=== PATIENT | female | born 1980 | race Caucasian/White ===

== ENCOUNTER 2021-01-31 08:54 | Outpatient (REF) | payer BC, SELFPAY ==
[2021-01-31 09:23] LABS: MANUAL DIFF FLAG NO
[2021-01-31 09:39] LABS: Basophils Absolute Auto 0.1 X10*3/uL (0.0-0.2); Basophils Percent Auto 0.6 % (0-2); Eosinophils Absolute Auto 0.4 X10*3/uL (0.0-0.4); Eosinophils Percent Auto 4.3 % (0-4); Hematocrit 40.8 % (37-47); Hemoglobin 13.8 g/dl (12.0-16.0); Imm Gran Abs Auto 0.06 X10*3/uL (0.00-0.03); Imm Gran Pct Auto 0.6 % (0.0-0.4); Lymphocytes Absolute Auto 2.8 X10*3/uL (1.2-4.9); Lymphocytes Percent Auto 28.3 % (20-40); Mean Corpuscular HGB Conc 33.8 g/dl (31.0-35.0); Mean Corpuscular Hemoglobin 27.9 pg (27.0-33.0); Mean Corpuscular Volume 82.6 fL (80-98); Monocytes Absolute Auto 0.7 X10*3/uL (0.1-1.2); Monocytes Percent Auto 6.9 % (2-11); Neutrophils Absolute Auto 5.8 X10*3/uL (2.0-8.3); Neutrophils Percent Auto 59.3 % (45-73); Platelet Count 332 X10*3/uL (160-400); Red Blood Count 4.94 X10*6/uL (4.20-5.50); Red Cell Distribution Width 12.8 % (11.0-16.0); White Blood Count 9.7 X10*3/uL (4.8-10.8)
[2021-01-31 10:23] LABS: Alanine Aminotransferase 15 U/L (0-31); Albumin Level 4.1 g/dL (3.5-5.0); Alkaline Phosphatase 60 U/L (39-117); Anion Gap 13 (12-20); Aspartate Amino Transferase 16 U/L (5-31); Bilirubin Total 0.5 mg/dL (0.0-1.0); Blood Urea Nitrogen 14 mg/dL (9-16); Calcium 9.1 mg/dL (8.4-10.2); Carbon Dioxide 26 mmol/L (22-29); Chloride 105 mmol/L (96-108); Cholesterol 210 mg/dL; Estimated Glomerular Filt Rate > 60; Glucose Random 145 mg/dL (60-115); HDL Cholesterol 48 mg/dL; LDL Cholesterol Calculated 124 mg/dl; Potassium 4.4 mmol/L (3.3-5.1); Sodium 140 mmol/L (135-145); Total Protein 7.3 g/dL (6.5-8.0); Triglycerides 190 mg/dL
[2021-01-31 10:27] LABS: Free T4 (Free Thyroxine) 1.07 ng/dL (0.71-1.85); Thyroid Stimulating Hormone 1.46 uIU/mL (0.32-4.0); Vitamin D 25-OH Total 50.7 ng/mL (>30)
[2021-01-31 10:33] LABS: B Type Natriuretic Peptide 14 pg/mL (<100)
[2021-01-31 12:11] LABS: Folate 19.9 ng/mL (> or = 4.0); Vitamin B12 327 pg/mL (200-900)
[2021-02-02 22:27] LABS: HPV mRNA E6/E7 rflx Not Detected (Not Detected)
== END 2021-01-31 08:55 | disposition home or self-care (01) ==
LOC: HO.LAB 08:54
PROVIDERS: Obstetrics & Gynecology; PCP Internal Medicine; Visit Provider Internal Medicine
DX: Z01.419 Encounter for gynecological examination (general) (routine) without abnormal findings (principal); I10 Essential (primary) hypertension; I42.8 Other cardiomyopathies; E78.00 Pure hypercholesterolemia, unspecified
CPT/HCPCS: 36415; 80053; 80061; 82306; 82607; 82746; 83880; 84439; 84443; 85025; 87624; 88142

== ENCOUNTER 2021-07-05 08:35 | Outpatient (REF) | payer BC, SELFPAY ==
[2021-07-05 09:09] LABS: Estimated Average Glucose 123 mg/dL; Hemoglobin A1c % 5.9 %
[2021-07-05 09:28] LABS: Alanine Aminotransferase 28 U/L (0-31); Alkaline Phosphatase 56 U/L (39-117); Anion Gap 11 (12-20); Aspartate Amino Transferase 20 U/L (5-31); Bilirubin Total 0.7 mg/dL (0.0-1.0); Blood Urea Nitrogen 9 mg/dL (9-16); Calcium 9.7 mg/dL (8.4-10.2); Carbon Dioxide 30 mmol/L (22-29); Chloride 103 mmol/L (96-108); Cholesterol 226 mg/dL; Estimated Glomerular Filt Rate > 60; Glucose Random 138 mg/dL (60-115); HDL Cholesterol 44 mg/dL; LDL Cholesterol Calculated 144 mg/dl; Potassium 4.3 mmol/L (3.3-5.1); Sodium 140 mmol/L (135-145); Triglycerides 193 mg/dL
== END 2021-07-05 08:36 | disposition home or self-care (01) ==
LOC: HO.LAB 08:35
PROVIDERS: PCP Internal Medicine; Visit Provider Internal Medicine
DX: R73.01 Impaired fasting glucose (principal); E78.00 Pure hypercholesterolemia, unspecified
CPT/HCPCS: 36415; 80053; 80061; 83036

== ENCOUNTER 2021-08-09 08:24 | Outpatient (REF) | payer BC, SELFPAY ==
--- NOTE | ~2021-08-09 | MM_ITS ---
EXAMINATION: MM SCREENING DIGITAL BREAST TOMOSYNTHESIS, BILATERAL CLINICAL INFORMATION: Screening. Asymptomatic. No prior mammography. Age 41. No known family history breast cancer. The lifetime risk of breast cancer based on the Tyrer-Cuzick Model is 13%. COMPARISON: None (current study represents initial baseline exam). TECHNIQUE: Digital breast tomosynthesis is performed in both the craniocaudal and mediolateral oblique views along with computer-aided detection (CAD). Synthesized 2D images are generated from the tomosynthesis. FINDINGS: There are scattered areas of fibroglandular density (ACR BI-RADS breast composition Category b). There are no significant masses, abnormal calcifications, or other abnormalities. The axilla and skin contours are unremarkable. MM/MM tomosynthesis screening BI IMPRESSION: No mammographic evidence of malignancy. ASSESSMENT: BI-RADS 1: Negative RECOMMENDATION: Routine annual mammography screening. This patient's information was entered into a reminder system with a target due date for their next mammogram.
== END 2021-08-09 08:25 | disposition home or self-care (01) ==
LOC: HO.MAMMO 08:24
PROVIDERS: PCP Internal Medicine; Visit Provider Internal Medicine
DX: Z12.31 Encounter for screening mammogram for malignant neoplasm of breast (principal)
CPT/HCPCS: 77063; 77067

== ENCOUNTER 2021-10-11 10:49 | Outpatient (REF) | payer BC, SELFPAY ==
[2021-10-11 12:18] LABS: Cholesterol 194 mg/dL; HDL Cholesterol 44 mg/dL; LDL Cholesterol Calculated 106 mg/dl; Triglycerides 221 mg/dL
[2021-10-11 13:11] LABS: Reflex LDLD? No
== END 2021-10-11 10:50 | disposition home or self-care (01) ==
LOC: HO.LAB 10:49
PROVIDERS: Absent Provider Internal Medicine; PCP Internal Medicine
DX: I50.20 Unspecified systolic (congestive) heart failure (principal)
CPT/HCPCS: 36415; 80061

== ENCOUNTER 2021-10-31 10:03 | Outpatient (REF) | payer BC, SELFPAY ==
[2021-10-31 10:37] LABS: MANUAL DIFF FLAG NO
[2021-10-31 10:53] LABS: Basophils Percent Auto 0.3 % (0-2); Eosinophils Absolute Auto 0.3 X10*3/uL (0.0-0.4); Hematocrit 41.9 % (37.0-47.0); Hemoglobin 14.1 g/dl (12.0-16.0); Imm Gran Abs Auto 0.05 X10*3/uL (0.00-0.03); Imm Gran Pct Auto 0.5 % (0.0-0.4); Lymphocytes Absolute Auto 2.5 X10*3/uL (1.2-4.9); Lymphocytes Percent Auto 23.4 % (20-40); Mean Corpuscular HGB Conc 33.7 g/dl (31.0-35.0); Mean Corpuscular Hemoglobin 28.4 pg (27.0-33.0); Mean Corpuscular Volume 84.5 fL (80.0-98.0); Mean Platelet Volume 8.9 fL (9.4-12.3); Monocytes Absolute Auto 0.6 X10*3/uL (0.1-1.2); Monocytes Percent Auto 5.8 % (2-11); Neutrophils Absolute Auto 7.2 x10*3/uL (2.0-8.3); Platelet Count 331 X10*3/uL (160-400); Red Blood Count 4.96 X10*6/uL (4.20-5.50); Red Cell Distribution Width 12.6 % (11.0-16.0); White Blood Count 10.8 X10*3/uL (4.8-10.8)
[2021-10-31 11:05] LABS: Estimated Average Glucose 128 mg/dL; Hemoglobin A1c % 6.1 %
[2021-10-31 11:54] LABS: B Type Natriuretic Peptide < 10 pg/mL (<100)
[2021-10-31 12:06] LABS: Alanine Aminotransferase 24 U/L (0-31); Albumin Level 4.2 g/dL (3.5-5.0); Alkaline Phosphatase 60 U/L (39-117); Anion Gap 16 (12-20); Aspartate Amino Transferase 16 U/L (5-31); Bilirubin Total 0.9 mg/dL (0.0-1.0); Blood Urea Nitrogen 12 mg/dL (9-16); Calcium 9.9 mg/dL (8.4-10.2); Carbon Dioxide 24 mmol/L (22-29); Chloride 102 mmol/L (96-108); Estimated Glomerular Filt Rate > 60; Glucose Random 145 mg/dL (60-115); Potassium 4.6 mmol/L (3.3-5.1); Sodium 137 mmol/L (135-145); Total Protein 7.3 g/dL (6.5-8.0)
[2021-10-31 12:12] LABS: Cholesterol 185 mg/dL; HDL Cholesterol 39 mg/dL; LDL Cholesterol Calculated 109 mg/dl; Triglycerides 185 mg/dL
[2021-10-31 13:23] LABS: Reflex LDLD? No
== END 2021-10-31 10:04 | disposition home or self-care (01) ==
LOC: HO.LAB 10:03
PROVIDERS: Absent Provider Internal Medicine; PCP Internal Medicine
DX: E78.5 Hyperlipidemia, unspecified (principal); E78.00 Pure hypercholesterolemia, unspecified
CPT/HCPCS: 36415; 80053; 80061; 83036; 83880; 85025

== ENCOUNTER 2022-01-17 08:22 | Outpatient (REF) | payer BC, SELFPAY ==
[2022-01-17 08:38] LABS: MANUAL DIFF FLAG NO
[2022-01-17 09:13] LABS: Basophils Percent Auto 0.4 % (0-2); Eosinophils Absolute Auto 0.3 X10*3/uL (0.0-0.4); Eosinophils Percent Auto 2.6 % (0-4); Hematocrit 40.1 % (37.0-47.0); Hemoglobin 13.7 g/dl (12.0-16.0); Imm Gran Abs Auto 0.08 X10*3/uL (0.00-0.03); Imm Gran Pct Auto 0.7 % (0.0-0.4); Lymphocytes Absolute Auto 2.7 X10*3/uL (1.2-4.9); Lymphocytes Percent Auto 24.7 % (20-40); Mean Corpuscular HGB Conc 34.2 g/dl (31.0-35.0); Mean Corpuscular Hemoglobin 28.6 pg (27.0-33.0); Mean Corpuscular Volume 83.7 fL (80.0-98.0); Mean Platelet Volume 8.9 fL (9.4-12.3); Monocytes Absolute Auto 0.8 X10*3/uL (0.1-1.2); Monocytes Percent Auto 7.7 % (2-11); Neutrophils Absolute Auto 6.9 x10*3/uL (2.0-8.3); Neutrophils Percent Auto 63.9 % (45-73); Platelet Count 317 X10*3/uL (160-400); Red Blood Count 4.79 X10*6/uL (4.20-5.50); Red Cell Distribution Width 12.8 % (11.0-16.0); White Blood Count 10.8 X10*3/uL (4.8-10.8)
[2022-01-17 09:14] LABS: Estimated Average Glucose 128 mg/dL; Hemoglobin A1C 149.0654 umol/L; Hemoglobin A1c % 6.1 %
[2022-01-17 09:35] LABS: Alanine Aminotransferase 23 U/L (0-31); Albumin Level 4.3 g/dL (3.5-5.0); Alkaline Phosphatase 52 U/L (39-117); Anion Gap 16 (12-20); Aspartate Amino Transferase 20 U/L (5-31); Bilirubin Total 0.9 mg/dL (0.0-1.0); Blood Urea Nitrogen 13 mg/dL (9-16); Calcium 9.5 mg/dL (8.4-10.2); Carbon Dioxide 23 mmol/L (22-29); Chloride 102 mmol/L (96-108); Cholesterol 166 mg/dL; Estimated Glomerular Filt Rate > 60; Glucose Random 151 mg/dL (60-115); HDL Cholesterol 39 mg/dL; LDL Cholesterol Calculated 86 mg/dl; Potassium 4.4 mmol/L (3.3-5.1); Sodium 137 mmol/L (135-145); Total Protein 7.4 g/dL (6.5-8.0); Triglycerides 206 mg/dL
[2022-01-17 09:59] LABS: Free T4 (Free Thyroxine) 1.07 ng/dL (0.71-1.85); Thyroid Stimulating Hormone 1.68 uIU/mL (0.32-4.0)
[2022-01-17 10:06] LABS: Folate > 20.0 ng/mL (> or = 4.0); Vitamin B12 328 pg/mL (200-900)
[2022-01-17 10:11] LABS: Creatinine Urine 116.79 mg/dL; Microalbum/Creatinine Ratio Ur 7.7 ug/mg cr
== END 2022-01-17 08:23 | disposition home or self-care (01) ==
LOC: HO.LAB 08:22
PROVIDERS: PCP Internal Medicine; Visit Provider Internal Medicine
DX: E11.65 Type 2 diabetes mellitus with hyperglycemia (principal); E78.00 Pure hypercholesterolemia, unspecified
CPT/HCPCS: 36415; 80053; 80061; 82043; 82306; 82607; 82746; 83036; 84439; 84443; 85025

== ENCOUNTER 2022-08-10 08:37 | Outpatient (REF) | payer BC, SELFPAY ==
--- NOTE | ~2022-08-10 | MM_ITS ---
EXAMINATION: MM SCREENING DIGITAL BREAST TOMOSYNTHESIS, BILATERAL CLINICAL INFORMATION: Screening. Asymptomatic. The lifetime risk of breast cancer based on the Tyrer-Cuzick Model is 13%. COMPARISON: Mammography: 08/09/2021 (baseline) TECHNIQUE: Digital breast tomosynthesis is performed in both the craniocaudal and mediolateral oblique views along with computer-aided detection (CAD). Synthesized 2D images are generated from the tomosynthesis. Additional exaggerated left CC view is provided. FINDINGS: There are scattered areas of fibroglandular density (ACR BI-RADS breast composition Category b). There are no significant masses, abnormal calcifications, or other abnormalities. Parenchymal pattern is similar to prior baseline exam. The axilla and skin contours are unremarkable. No significant changes. MM/MM tomosynthesis screening BI IMPRESSION: No mammographic evidence of malignancy. ASSESSMENT: BI-RADS 1: Negative RECOMMENDATION: Routine annual mammography screening. This patient's information was entered into a reminder system with a target due date for their next mammogram.
== END 2022-08-10 08:38 | disposition home or self-care (01) ==
LOC: HO.MAMMO 08:37
PROVIDERS: PCP Internal Medicine; Visit Provider Internal Medicine
DX: Z12.31 Encounter for screening mammogram for malignant neoplasm of breast (principal)
CPT/HCPCS: 77063; 77067

== ENCOUNTER 2022-09-18 13:34 | Outpatient (REF) | payer OTHER, SELFPAY ==
[2022-09-18 15:29] LABS: Anion Gap 15 (12-20); Blood Urea Nitrogen 12 mg/dL (9-16); Calcium 10.3 mg/dL (8.4-10.2); Carbon Dioxide 27 mmol/L (22-29); Chloride 101 mmol/L (96-108); Estimated Glomerular Filt Rate > 60; Glucose Random 109 mg/dL (60-115); Potassium 4.3 mmol/L (3.3-5.1); Sodium 139 mmol/L (135-145)
[2022-09-18 16:07] LABS: B Type Natriuretic Peptide < 10 pg/mL (<100)
== END 2022-09-18 13:35 | disposition home or self-care (01) ==
LOC: HO.LAB 13:34
PROVIDERS: PCP Internal Medicine; Referring Provider Internal Medicine; Visit Provider Internal Medicine Cardiovascular Disease
DX: I42.8 Other cardiomyopathies (principal); Z86.79 Personal history of other diseases of the circulatory system
CPT/HCPCS: 36415; 80048; 83880; 93005

== ENCOUNTER → 2022-09-27 09:46 | Outpatient (REF) | payer OTHER, SELFPAY ==
--- NOTE | 2022-09-27 09:53 | CA_ITS ---
Transthoracic Echocardiogram Patient (Last, First, Middle): Adina Lees M Gender: Female Date of : 1980 Age: 42 Procedure Date: 09/27/2022 Procedure Type: Transthoracic Echocardiogram Location: OP Height: 175.26 cm Weight: 106.6 kg BSA: 2.21 m2 Heart Rate: 95 bpm BP: 120 / 80 mmHg Route Process Administrator: KRISS Referring MD: Gene Funk MD Career Developer: Gene Funk MD Symptoms: I42.8 - Other cardiomyopathies Study Quality: Adequate w contrast ECG Rhythm: Sinus Conclusions: - 1. Normal LV systolic function with very mild asymmetric septal hypertrophy with grade 1 diastolic dysfunction 2. Normal cardiac valvular Doppler 3. No gross pericardial effusion Findings Procedure Information Contrast agent, definity, is being given per protocol without apparent complications. Left Ventricle Normal left ventricular size, thickness, and systolic function. The visually estimated ejection fraction is between 55-60%. There is no evidence of regional wall motion abnormalities. There is no dynamic left ventricular outflow tract obstruction. Spectral Doppler is indicative of an impaired relaxation filling pattern. E/E prime ratio is <8, consistent with normal filling pressures. Evidence suggests grade I (mild) diastolic dysfunction. There is mild septal asymmetric hypertrophy. Right Ventricle Normal right ventricular cavity size and systolic function. Atria Both atria are normal in size. There is lipomatous hypertrophy of the interatrial septum. There is no evidence of interatrial shunt. Aortic Valve Normal aortic valve structure and function. There is no aortic valve stenosis. There is no aortic valve regurgitation. Mitral Valve Normal mitral valve structure and function. There is trace mitral valve regurgitation. There is no mitral valve stenosis. Pulmonic Valve The pulmonic valve was not well visualized. Tricuspid Valve Likely normal tricuspid valve structure and function. Tricuspid regurgitation envelope is inadequate for calculation of right ventricular systolic pressure. Normal right atrial pressure. Great Vessels All visible segments of the aorta are normal in size. The pulmonary artery was not well visualized. Venous The inferior vena cava is normal in size and collapses greater than 50% with inspiration. Pericardium/Pleural There is no evidence of pericardial effusion. Prior Study Comparison No prior study available for comparison. Measurements 2D Linear Measurements IVSd: 1.16 0.6-0.9/0.6-1.0 cm LVIDd: 4.29 3.9-5.3/4.2-5.9 cm LVIDd Index: 1.94 2.4-3.2/2.2-3.1 cm/m2 LVIDs: 2.92 2.0-3.6 cm LVPWd: 0.70 0.7-1.1 cm LA Diam: 4.20 2.7-3.8/3.0-4.0 cm LAIDs Index: 1.90 1.5-2.3 cm/m2 LV Mass: 159.80 67-162/88-224 g LV Mass Index: 72.31 43-95/49-115 g/m2 LVOT Diam: 2.20 3.0+(-)1.3 cm 2D Systolic Function EF 4C: 52.70 >55% EF 2C: 55.30 >55% EF BiP: 54.90 >55% Mitral Valve MV Pk E: 0.51 MV PK A: 0.78 E/A: 0.70 E'Lateral: 10.10 E'Medial: 4.68 E/E' Med: 11.00 E/E' Lat: 5.10 Aortic Valve AoV Pk Ayden: 1.08 AoV Pk Grad: 5.00 KATHY: 3.33 LVOT LVOT Pk Ayden: 0.95 LVOT Mn Ayden: 0.65 LVOT VTI: 0.17 LVOT Pk Grad: 4.00 LVOT Mn Grad: 2.00 LVOT Diam: 2.20 LVOT Area: 3.80 Diastolic Function MV Pk E: 0.51 MV Pk A: 0.78 E/A: 0.70 E'Medial: 4.68 E/E' Med: 11.00 E' Laterial: 10.10 E/E' Lat: 5.10 Right Ventricle TAPSE (mm): 23.60 TVS' Ayden: 9.25 Tricuspid Valve RA Press: 3.00 Great Vessels Aorta Sinus of Valsalva: 3.30 2.0-3.5 cm Ao Asc: 3.50 2.1-3.4 cm Pulmonary Valve PV Pk Ayden: 0.81 Peak PV Grad: 3.00 Updated in Other Vendor System with Status of Final Gene Funk MD electronically signed on 09/27/2022 11:49:44 AM with status of Final
== END ==
LOC: HO.CARD 09:46
PROVIDERS: PCP Internal Medicine; Visit Provider Internal Medicine Cardiovascular Disease
DX: I42.8 Other cardiomyopathies (principal)
CPT/HCPCS: 93306; Q9957

== ENCOUNTER 2022-12-06 08:30 | Outpatient (REF) | payer OTHER, SELFPAY ==
--- NOTE | ~2022-12-06 | XR_ITS ---
EXAMINATION: XR LUMBOSACRAL SPINE CLINICAL INFORMATION: Anesthesia of skin COMPARISON: Lumbar spine radiographs dated 03/11/2018. TECHNIQUE: AP and lateral views of the lumbar spine and lateral view of the lumbosacral junction. FINDINGS: Vertebral body heights and alignment are normal. The lumbar disc spaces are well-maintained. No acute fracture or spondylolisthesis is seen. There is mild anterior spondylosis at T10-T11. There is very mild anterior spondylosis at L4-L5 and L5-S1. The posterior elements are intact. The paravertebral soft tissues are unremarkable. XR/XR lumbar spine 2-3V IMPRESSION: 1. No acute fracture or spondylolisthesis is seen. 2. The lumbar disc spaces are well-maintained. 3. There is very mild thoracolumbar spondylosis.
[2022-12-06 08:52] LABS: MANUAL DIFF FLAG NO
--- NOTE | 2022-12-06 09:05 | EMG_ITS ---
Bilateral tibial and peroneal motor studies were performed. Bilateral superficial peroneal and sural sensory studies were performed. Tibial H reflexes were obtained and paraspinal muscles were tested with a needle. 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 MD TIM Kruse/JESSIE / [id number]
[2022-12-06 09:09] LABS: Basophils Absolute Auto 0.1 X10*3/uL (0.0-0.2); Basophils Percent Auto 0.5 % (0-2); Eosinophils Absolute Auto 1.6 X10*3/uL (0.0-0.4); Eosinophils Percent Auto 13.8 % (0-4); Hematocrit 40.5 % (37.0-47.0); Hemoglobin 13.6 g/dl (12.0-16.0); Imm Gran Abs Auto 0.07 X10*3/uL (0.00-0.03); Imm Gran Pct Auto 0.6 % (0.0-0.4); Lymphocytes Absolute Auto 2.5 X10*3/uL (1.2-4.9); Lymphocytes Percent Auto 21.4 % (20-40); Mean Corpuscular HGB Conc 33.6 g/dl (31.0-35.0); Mean Corpuscular Hemoglobin 28.5 pg (27.0-33.0); Mean Corpuscular Volume 84.7 fL (80.0-98.0); Mean Platelet Volume 8.7 fL (9.4-12.3); Monocytes Absolute Auto 0.6 X10*3/uL (0.1-1.2); Monocytes Percent Auto 5.5 % (2-11); Neutrophils Absolute Auto 6.8 x10*3/uL (2.0-8.3); Neutrophils Percent Auto 58.2 % (45-73); Platelet Count 296 X10*3/uL (160-400); Red Blood Count 4.78 X10*6/uL (4.20-5.50); Red Cell Distribution Width 12.5 % (11.0-16.0); White Blood Count 11.7 X10*3/uL (4.8-10.8)
[2022-12-06 09:11] LABS: Estimated Average Glucose 131 mg/dL; Hemoglobin A1c % 6.2 %
[2022-12-06 10:30] LABS: Alanine Aminotransferase 20 U/L (0-31); Alkaline Phosphatase 46 U/L (39-117); Anion Gap 14 (12-20); Aspartate Amino Transferase 16 U/L (5-31); Bilirubin Total 1.1 mg/dL (0.0-1.0); Blood Urea Nitrogen 14 mg/dL (9-16); Calcium 9.2 mg/dL (8.4-10.2); Carbon Dioxide 25 mmol/L (22-29); Chloride 104 mmol/L (96-108); Cholesterol 174 mg/dL; Estimated Glomerular Filt Rate > 60; Glucose Random 148 mg/dL (60-115); HDL Cholesterol 40 mg/dL; LDL Cholesterol Calculated 103 mg/dl; Potassium 4.3 mmol/L (3.3-5.1); Sodium 139 mmol/L (135-145); Total Protein 6.8 g/dL (6.5-8.0); Triglycerides 159 mg/dL
[2022-12-06 10:41] LABS: Folate 16.8 ng/mL (> or = 4.0); Thyroid Stimulating Hormone 1.58 uIU/mL (0.32-4.0); Vitamin B12 426 pg/mL (200-900); Vitamin D 25-OH Total 65.2 ng/mL (>30)
[2022-12-06 12:05] LABS: Creatinine Urine 89.53 mg/dL; Microalbumin Urine < 5.0 mg/L
== END 2022-12-06 08:31 | disposition home or self-care (01) ==
LOC: HO.NEURO 08:30
PROVIDERS: PCP Internal Medicine; Visit Provider Internal Medicine
DX: R20.0 Anesthesia of skin (principal); E11.65 Type 2 diabetes mellitus with hyperglycemia; E78.00 Pure hypercholesterolemia, unspecified; E55.9 Vitamin D deficiency, unspecified
CPT/HCPCS: 36415; 72100; 80053; 80061; 82043; 82306; 82607; 82746; 83036; 84439; 84443; 85025; 95886; 95911

== ENCOUNTER 2023-05-02 10:10 | Outpatient (REF) | payer OTHER, SELFPAY ==
[2023-05-02 11:38] LABS: Estimated Average Glucose 88 mg/dL; Hemoglobin A1c % 4.7 % (<6.0)
[2023-05-02 11:41] LABS: Alanine Aminotransferase 15 U/L (0-31); Albumin Level 4.1 g/dL (3.5-5.0); Alkaline Phosphatase 41 U/L (39-117); Anion Gap 13 (12-20); Aspartate Amino Transferase 14 U/L (5-31); Bilirubin Total 0.8 mg/dL (0.0-1.0); Blood Urea Nitrogen 13 mg/dL (9-16); Calcium 9.5 mg/dL (8.4-10.2); Carbon Dioxide 26 mmol/L (22-29); Chloride 106 mmol/L (96-108); Cholesterol 132 mg/dL (<200); Estimated Glomerular Filt Rate > 60; Glucose Random 93 mg/dL (60-115); HDL Cholesterol 38 mg/dL (>40); LDL Cholesterol Calculated 75 mg/dL (<100); Potassium 4.2 mmol/L (3.3-5.1); Sodium 141 mmol/L (135-145); Total Protein 7.2 g/dL (6.5-8.0); Triglycerides 96 mg/dL (<150)
== END 2023-05-02 10:11 | disposition home or self-care (01) ==
LOC: HO.LAB 10:10
PROVIDERS: PCP Internal Medicine; Visit Provider Internal Medicine
DX: E11.65 Type 2 diabetes mellitus with hyperglycemia (principal); E78.00 Pure hypercholesterolemia, unspecified
CPT/HCPCS: 36415; 80053; 80061; 83036

== ENCOUNTER 2023-05-17 14:43 | Outpatient (AMB) | payer OTHER, SELFPAY ==
[2023-05-17 14:47] VITALS: BP 104/60; PULSE 85; O2SAT 98; BMI 30.6
--- NOTE | 2023-05-17 14:47 | MHC.PC.OV ---
Vital Signs 05/17/23 14:47 Height 5 ft 9 in Weight 207 lb BMI 30.6 BP 104/60 Blood Pressure Location Lt brachial Position Sitting Pulse 85 Pulse Source Pulse Oximeter Pulse Oximetry (%) 98 Oxygen Delivery Method Room Air Intake Visit Reasons: 3M follow up Allergies No Known Allergies Allergy (Verified 05/17/23 14:48) Medication List - Last Reconciled 05/17/23 by Eliseo Jha MD biotin 1 mg PO DAILY carvedilol 25 mg PO BID 90 days cetirizine (Zyrtec) 10 mg PO DAILY PRN fluticasone propionate 50 mcg/actuation 1 spray intranasal Q12H gabapentin 100 mg PO BEDTIME lactobacillus combination no.4 (Probiotic) 3,000 mmu cells PO DAILY losartan 100 mg PO DAILY 90 days metformin 500 mg PO DAILY multivitamin 1 tab PO DAILY pantoprazole 40 mg PO DAILY 90 days semaglutide 2 mg (0.75 mL) subcut QWEEK 4 weeks simvastatin 10 mg PO BEDTIME 30 days spironolactone 25 mg PO DAILY 90 days Tobacco use date assessed: 12/03/22 Dental Screening Dental Screen Date: 05/17/23 Did you have a dental visit in the last 12 months?: Yes Did you have a dental problem in the last 6 months where you did not have access to dental care?: No Was dental information given to patient?: Patient has dentist HPI 3M follow up HPI Details 43-year-old morbidly obese female with a history of nonischemic cardiomyopathy hypercholesterolemia hypertension GERD and diabetes mellitus last seen in 02/08/2023. Patient is up-to-date with mammogram. [facility] Medical History History of GI bleed Nonischemic cardiomyopathy PCOS (polycystic ovarian syndrome) Congestive heart failure Obesity (BMI 30-39.9) Ocular migraine Hypertension Hypercholesterolemia GERD (gastroesophageal reflux disease) Family History Mother No problems noted. Father FH: prostate cancer Maternal Grandfather Colon cancer Social History Housing: House Alcohol intake: current Alcohol intake frequency: a few times a month Patient Tobacco Use Status: Never used Tobacco e-Cigarette/Vaping Use: Never Used Second Hand Smoke Exposure: No service: No Current occupational status: employed Current occupational exposures/hazards: No Cognitive needs: No Hearing needs: No Vision needs: No Female Reproductive History Menstrual Age of Menarche: 15 Questionnaire PHQ-9 Over the last 2 weeks, how often have you been bothered by any of the following problems? 1. Little interest or pleasure in doing things: not at all 2. Feeling down, depressed, or hopeless: not at all 3. Trouble falling or staying asleep, or sleeping too much: not at all 4. Feeling tired or having little energy: not at all 5. Poor appetite or overeating: not at all 6. Feeling bad about yourself - or that you are a failure or have let yourself or your family down: not at all 7. Trouble concentrating on things, such as reading the newspaper or watching television: not at all 8. Moving or speaking so slowly that other people could have noticed. Or the opposite - being so fidgety or restless that you have been moving around a lot more than usual: not at all 9. Thoughts that you would be better off or of hurting yourself in some way: not at all Total score: 0 Depression Screening Interpretation: Negative Depression Screening Done: Yes Source: Developed by Drs. Dandy Vieyra, Lance Maloney and colleagues, with an educational selin from [employer]. Thrive Questionnaire Date Thrive assessed: 02/08/23 AUDIT C Alcohol Use Questionnaire (AUDIT-C) 1. How often do you have a drink containing alcohol?: 2-4 times a month 2. How many drinks containing alcohol do you have on a typical day when you are drinking?: 1 or 2 3. How often do you have six or more drinks on one occasion?: Never Total Score: 2 SELENA-7 AMB Questionnaire SELENA-7 Date SELENA - 7 assessed: 02/08/23 Source: Developed by Marianne Elizalde Kurt Kroenke and colleagues, with an educational selin from [employer]. Physical exam (Primary Care) Vital Signs: Last Vital Signs Pulse 85 05/17/23 14:47 BP 104/60 05/17/23 14:47 Pulse Ox 98 05/17/23 14:47 Oxygen Delivery Method Room Air 05/17/23 14:47 BMI result Body Mass Index 30.6 Tobacco/Smoking Status: Tobacco use Status Tobacco use date assessed 12/03/22 05/17/23 14:53 Patient Tobacco Use Status Never used Tobacco 05/17/23 14:53 e-Cigarette/Vaping Use Never Used 05/17/23 14:53 PHQ-9: PHQ-9 Score PHQ-9: Total score 0 05/17/23 14:58 Depression Screening Interpretation: Negative Thrive Assessment: Date of Thrive Assessment Date Thrive assessed 02/08/23 05/17/23 14:53 Const General: alert; No acute distress Eyes Conjunctivae: conjunctivae normal Resp Auscultation: clear to auscultation bilaterally Cardio Rate: regular rate Rhythm: regular rhythm GI Inspection: Yes normal to inspection Extrem General: Yes normal to inspection and No edema Office Procedures Flu Questionnaire Does the patient have a severe egg allergy?: No Does the patient have severe life threatening allergies?: No Does the patient have a fever or illness today?: No Has the patient ever had Guillain-[place] Syndrome?: No Has the patient ever had any past reaction to a flu shot?: No Immunizations flu vacc [id number] 6mos up(PF) 60 mcg(15 mcgx4)/0.5 mL IM syringe Performing Provider: Eliseo Jha MD Performing Location: [facility] Administered by: JEANNIE Motta on 05/17/23 14:58 Dose Route Admin Location Dispensed Lot Number Expiration Date NDC Professor Of Communication And Writing 0.5 mL IM Left Deltoid 0.5 mL [id number] 02/09/24 14225-928-39 [employer] VIS Given Date VIS Provided VIS Publication Date 05/17/23 Single Vaccine 21 Eligibility Eligibility Date Funding Source Not [facility] Eligible 05/17/23 Private Assessment and Plan Assessment & Plan (1) Type 2 diabetes mellitus with hyperglycemia: Code(s): E11.65 - Type 2 diabetes mellitus with hyperglycemia Plan: Decrease the amount of carbohydrate intake, pasta, bread, rice and potatoes are all sugar and that is aside from all the sweet stuff, remember that fruits are good but they are Sweet also. Hemoglobin A1c goal of less than 6.5 patient is on metformin 500 mg once a day, semaglutide (2) Hypercholesterolemia: Code(s): E78.00 - Pure hypercholesterolemia, unspecified Plan: Avoid fried foods, chicken skin, eggs, butter margarine, pastries and meat. Be it pork or beef they have a lot of cholesterol LDL goal of less than 100. Patient is on simvastatin 10 mg once a day (3) GERD (gastroesophageal reflux disease): Code(s): K21.9 - Gastro-esophageal reflux disease without esophagitis Qualifiers: Esophagitis presence: without esophagitis Qualified Code(s): K21.9 - Gastro-esophageal reflux disease without esophagitis Plan: Avoid the foods that causes that usually spicy foods, tomato products, juices, coffee, soda and foods that your sensitive to. After eating do not lie down, allow 3-4 hours before in lie down. And keep the head of bed above 30 degrees to avoid the acid from going up. (4) Hypertension: Code(s): I10 - Essential (primary) hypertension Qualifiers: Hypertension type: essential hypertension Qualified Code(s): I10 - Essential (primary) hypertension Plan: Continue with blood pressure medication. Decrease salt intake and exercise patient is on spironolactone 25 mg once a day losartan 100 mg once a day and carvedilol 25 mg twice a day (5) Obesity (BMI 30-39.9): Code(s): E66.9 - Obesity, unspecified Plan: Diet and exercise (6) Nonischemic cardiomyopathy: Comment: January 2013 EF 61%, April 2018 EF 59% June 2020 echocardiogram ejection fraction 53% normal left ventricular activity October 2022. Normal LV systolic function with very mild asymmetric septal hypertrophy with grade 1 diastolic dysfunction 2. Normal cardiac valvular Doppler 3. No gross pericardial effusion Code(s): I42.8 - Other cardiomyopathies Plan: Continue with present medication. Orders: Orders Influenza [id number] Immunization Today Z23 - Encounter for immunization Medications: Refilled semaglutide for 4 weeks 2 mg (0.75 mL) subcut QWEEK 4 weeks 3 mL 3RF E11.65 - Type 2 diabetes mellitus with hyperglycemia Coding Level of Care Code Est Pt Level 4 (72799) Diagnoses Type 2 diabetes mellitus with hyperglycemia E11.65 Hypercholesterolemia E78.00 Gastroesophageal reflux disease without esophagitis K21.9 Esophagitis presence: without esophagitis Essential hypertension I10 Hypertension type: essential hypertension Obesity (BMI 30-39.9) E66.9 Nonischemic cardiomyopathy I42.8
== END 2023-05-17 15:49 | disposition home or self-care (01) ==
PROVIDERS: PCP Internal Medicine; Visit Provider Internal Medicine
DX: E11.65 Type 2 diabetes mellitus with hyperglycemia (principal); E78.00 Pure hypercholesterolemia, unspecified; I42.8 Other cardiomyopathies; Z23 Encounter for immunization; K21.9 Gastro-esophageal reflux disease without esophagitis; I10 Essential (primary) hypertension; E66.9 Obesity, unspecified
CPT/HCPCS: 90471; 90686; 99214

== ENCOUNTER 2023-07-23 09:27 | Outpatient (AMB) | payer OTHER, SELFPAY ==
--- NOTE | 2023-07-23 09:32 | MHC.OFFVIS ---
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: No Allergies No Known Allergies Allergy (Verified 07/23/23 09:33) Medication List - Last Reconciled 07/23/23 by Suzanne Rubi MD biotin 1 mg PO DAILY carvedilol 25 mg PO BID 90 days cetirizine (Zyrtec) 10 mg PO DAILY PRN fluticasone propionate 50 mcg/actuation 1 spray intranasal Q12H gabapentin 100 mg PO BEDTIME lactobacillus combination no.4 (Probiotic) 3,000 mmu cells PO DAILY losartan 100 mg PO DAILY 90 days metformin 500 mg PO DAILY multivitamin 1 tab PO DAILY pantoprazole 40 mg PO DAILY 90 days simvastatin 10 mg PO BEDTIME 30 days spironolactone 25 mg PO DAILY 90 days tirzepatide 5 mg (0.5 mL) subcut QWEEK 4 weeks HPI HPI Comments History of Present Illness Details 43y/o female comes for evaluation of numbness and tingling in her lower extremities and upper extremities. It started about 10 years ago as episodic numbness and tingling in her hands and legs . It progressed over years and she has more frequent episodes. The episodes are more at rest , whens he is trying to sleep, whens he is sitting at work. Walking around makes these symptoms better , sitting make sit worse. she is not sure if its worse in the evenings. she has had stabbing pain and leg cramps at night that wakes her up. Now she has numbness in her left 2 toes that is persistent. she has pain in her back mainly in the tail bone area but no shooting pains. she sleeps good, has mild snoring. she also has some neck pain and left shoulder pain but no shooting pains. No urinary incontinence. she had heart failure when she was 26 they think it was a viral carditis. [facility] Medical History (Updated 07/23/23 @ 10:09 by Suzanne Rubi MD) Paresthesias Hypersomnia Snoring History of GI bleed Nonischemic cardiomyopathy PCOS (polycystic ovarian syndrome) Congestive heart failure Obesity (BMI 30-39.9) Ocular migraine Hypertension Hypercholesterolemia GERD (gastroesophageal reflux disease) Family History Mother No problems noted. Father FH: prostate cancer Maternal Grandfather Colon cancer Social History Housing: House Alcohol intake: current Alcohol intake frequency: a few times a month Patient Tobacco Use Status: Never used Tobacco e-Cigarette/Vaping Use: Never Used Second Hand Smoke Exposure: No service: No Current occupational status: employed Current occupational exposures/hazards: No Cognitive needs: No Hearing needs: No Vision needs: No Female Reproductive History Menstrual Age of Menarche: 15 Physical Exam Vital Signs: Last Vital Signs Pulse 98 07/23/23 09:33 Resp 16 07/23/23 09:33 BP 118/70 07/23/23 09:33 Pulse Ox 99 07/23/23 09:33 Oxygen Delivery Method Room Air 07/23/23 09:33 BMI result Body Mass Index 29.7 Const General: cooperative, healthy appearing, comfortable and no acute distress Nutritional Appearance: overweight Orientation/consciousness: patient oriented x3 Eyes Pupils: Equal, round and reactive pupils present Neuro Other: Mallampatti grade 4 General: patient oriented x3, gait normal, tone normal, moves all extremities and no focal motor deficits Cranial nerves: Yes Facial sensation intact/muscles of mastication intact, Yes Equal, round and reactive pupils present, Yes Bilaterally intact EOM present, Yes Nystagmus not present, Yes Normal facial strength present, Yes Midline tongue present and Yes Symmetric palate elevation present Cognition (Neuro): normal cognition Gait exam (Neuro): Normal gait present Motor exam (neuro): 5/5 motor strength present throughout and Normal motor muscle tone present throughout Deep tendon reflexes (DTR's): Right triceps reflex intensity grade: 1+, Left triceps reflex intensity grade: 1+, Rt Biceps (C5, C6): 1+, Left biceps reflex intensity grade: 1+, Right brachioradialis reflex intensity grade: 1+, Left brachioradialis reflex intensity grade: 1+, Right patellar reflex intensity grade: 1+ and Left patellar reflex intensity grade: 1+ Coordination: [id number] test normal Assessment & Plan Assessment & Plan (1) Left leg numbness: Comment: 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 due to low iron I will check her ferritin level SLeep study to r/o sleep apnea Continue gabapentin 100mg qhs for now Orders: Orders NE electromyogram (EMG) 3 Months R20.0 - Anesthesia of skin Ferritin Today R20.0 - Anesthesia of skin Vitamin D 25-OH (D2 and D3) Today R20.0 - Anesthesia of skin RT home sleep study Today G47.10 - Hypersomnia, unspecified, R06.83 - Snoring Coding Level of Care Code New Pt Level 4 (11490) Diagnoses Left leg numbness R20.0 Paresthesias R20.2 Snoring R06.83 Hypersomnia G47.10
[2023-07-23 09:33] VITALS: BP 118/70; PULSE 98; RESP 16; O2SAT 99; BMI 29.7
== END 2023-07-23 10:10 | disposition home or self-care (01) ==
PROVIDERS: PCP Internal Medicine; Visit Provider Psychiatry & Neurology Neurology
DX: R20.0 Anesthesia of skin (principal); R20.2 Paresthesia of skin; R06.83 Snoring; G47.10 Hypersomnia, unspecified
CPT/HCPCS: 99204

== ENCOUNTER → 2023-07-23 09:27 | Outpatient (BNVA) | payer OTHER, SELFPAY | PROVIDERS: PCP Internal Medicine; Visit Provider Psychiatry & Neurology Neurology ==

== ENCOUNTER 2023-08-16 15:50 | Outpatient (REF) | payer OTHER, SELFPAY ==
--- NOTE | ~2023-08-16 | MM_ITS ---
EXAMINATION: MM SCREENING DIGITAL BREAST TOMOSYNTHESIS, BILATERAL CLINICAL INFORMATION: Screening. Asymptomatic. COMPARISON: Mammography: 08/10/2022, 08/09/2021 TECHNIQUE: Digital breast tomosynthesis is performed in both the craniocaudal and mediolateral oblique views along with computer-aided detection (CAD). Synthesized 2D images are generated from the tomosynthesis. FINDINGS: There are scattered areas of fibroglandular density (ACR BI-RADS breast composition Category b). There are no suspicious masses, suspicious grouped calcifications, or areas of architectural distortion in either breast. The parenchymal pattern is stable from prior exams. No skin or axillary abnormalities. MM/MM tomosynthesis screening BI IMPRESSION: No mammographic evidence of malignancy. ASSESSMENT: BI-RADS BI-RADS 1 - Negative RECOMMENDATION: Routine annual mammography screening. 1 year F/U This examination should not preclude the clinical evaluation of a suspicious palpable abnormality. This patient's information was entered into a reminder system with a target due date for their next mammogram.
== END 2023-08-16 15:51 | disposition home or self-care (01) ==
LOC: HO.MAMMO 15:50
PROVIDERS: PCP Internal Medicine; Visit Provider Internal Medicine
DX: Z12.31 Encounter for screening mammogram for malignant neoplasm of breast (principal)
CPT/HCPCS: 77063; 77067

== ENCOUNTER → 2023-08-16 16:00 | Outpatient (BNV) | payer OTHER, SELFPAY | PROVIDERS: PCP Internal Medicine; Visit Provider Radiology Diagnostic Radiology | DX: Z12.31 Encounter for screening mammogram for malignant neoplasm of breast (principal) | CPT/HCPCS: 77063; 77067 ==

== ENCOUNTER → 2023-09-16 13:51 | Outpatient (REF) | payer OTHER, SELFPAY | LOC: HO.SL 13:51 | PROVIDERS: PCP Internal Medicine; Visit Provider Psychiatry & Neurology Neurology | DX: G47.33 Obstructive sleep apnea (adult) (pediatric) (principal); G47.10 Hypersomnia, unspecified; R06.83 Snoring | CPT/HCPCS: 95806 ==

== ENCOUNTER → 2023-09-16 14:01 | Outpatient (BNV) | payer OTHER, SELFPAY | PROVIDERS: PCP Internal Medicine; Visit Provider Internal Medicine | DX: G47.33 Obstructive sleep apnea (adult) (pediatric) (principal) | CPT/HCPCS: 95806 ==

== ENCOUNTER 2023-09-26 13:17 | Outpatient (AMB) | payer OTHER, SELFPAY ==
[2023-09-26 13:18] VITALS: BP 120/74; PULSE 107; BMI 29.0
--- NOTE | 2023-09-26 13:18 | A.OFFVIS_ITS ---
Intake Vital Signs 09/26/23 13:18 Height 5 ft 9 in Weight 196 lb 3.382 oz BMI 29.0 BP 120/74 Blood Pressure Location Lt brachial Position Sitting Pulse 107 H Intake Visit Reasons: 1 YEAR FOLLOW UP AFTER ECHO Intake Note: 1 year follow-up after echo with ekg Superintendent Nonselling Required: No Allergies No Known Allergies Allergy (Verified 07/23/23 09:33) Medication List - Last Reconciled 09/26/23 by Gene Funk MD biotin 1 mg PO DAILY carvedilol 25 mg PO BID 90 days cetirizine (Zyrtec) 10 mg PO DAILY PRN fluticasone propionate 50 mcg/actuation 1 spray intranasal Q12H gabapentin 100 mg PO BEDTIME lactobacillus combination no.4 (Probiotic) 3,000 mmu cells PO DAILY losartan 100 mg PO DAILY 90 days metformin 500 mg PO DAILY multivitamin 1 tab PO DAILY pantoprazole 40 mg PO DAILY 90 days simvastatin 10 mg PO BEDTIME 30 days spironolactone 25 mg PO DAILY 90 days tirzepatide 10 mg subcut QWEEK HPI HPI Comments History of Present Illness Details Adina comes for follow-up. She has been doing well. She has been exercising regularly. Denies any symptoms of shortness of breath, orthopnea, PND. No prolonged palpitations, lightheadedness, syncope. Denies any exertional chest pain. Takes all her medications regularly. Blood pressures been generally well controlled. [facility] Medical History Paresthesias Hypersomnia Snoring History of GI bleed Nonischemic cardiomyopathy PCOS (polycystic ovarian syndrome) Congestive heart failure Obesity (BMI 30-39.9) Ocular migraine Hypertension Hypercholesterolemia GERD (gastroesophageal reflux disease) Family History Mother No problems noted. Father FH: prostate cancer Maternal Grandfather Colon cancer Social History Housing: House Alcohol intake: current Alcohol intake frequency: a few times a month Patient Tobacco Use Status: Never used Tobacco e-Cigarette/Vaping Use: Never Used Second Hand Smoke Exposure: No service: No Current occupational status: employed Current occupational exposures/hazards: No Cognitive needs: No Hearing needs: No Vision needs: No Female Reproductive History Menstrual Age of Menarche: 15 Review of Systems Const Denies chills, Denies fatigue, Denies fever(s), Denies frequent falls, Denies weakness, Denies weight gain and Denies weight loss ENT Denies dizziness Card Denies chest pain, Denies leg edema, Denies lightheadedness, Denies palpitations, Denies dyspnea, Denies dyspnea on exertion, Denies orthopnea and Denies other (loss of consciousness) Resp Denies cough, Denies dyspnea and Denies dyspnea on exertion GI Denies hematochezia and Denies change in stool character Musc Denies abnormal gait, Denies muscle weakness, Denies numbness, Denies radiating pain into limb and Denies tingling Neuro Denies Abnormal speech present, Denies abnormal gait, Denies dizziness, Denies frequent falls, Denies numbness, Denies tingling and Denies weakness Endo Denies fatigue and Denies palpitations Physical Exam Vital Signs: Last Vital Signs Pulse 107 H 09/26/23 13:18 BP 120/74 09/26/23 13:18 BMI result Body Mass Index 29.0 Const General: cooperative, comfortable, no acute distress, alert, awake, Physically active and well groomed Nutritional Appearance: obese Orientation/consciousness: patient oriented x3 Limitations: no limitations HEENT Head: Yes normal to inspection and Yes normocephalic Neck Neck: Yes trachea midline, Yes supple and Yes no JVD Resp Effort & Inspection: normal respiratory effort Auscultation: clear to auscultation bilaterally Cardio Jugular venous distension: no JVD Rate: regular rate Rhythm: regular rhythm Heart sounds: S1 normal heart sound present, S2 normal heart sound present, no click, no gallops, no murmurs and no rubs GI Inspection: Yes obesity Auscultation: normal bowel sounds Skin General skin exam: no rashes or lesions noted Neuro General: patient oriented x3 and no focal motor deficits Speech: No Abnormal speech present Extrem General: Yes no clubbing, cyanosis or edema Psych Appearance: grossly normal Office Procedures EKG Details: EKG shows sinus tachycardia with poor R-wave progression most likely due to lead placement otherwise normal EKG [id number], Complete Assessment & Plan Assessment & Plan (1) Nonischemic cardiomyopathy: Comment: January 2013 EF 61%, April 2018 EF 59% June 2020 echocardiogram ejection fraction 53% normal left ventricular activity October 2022. Normal LV systolic function with very mild asymmetric septal hypertrophy with grade 1 diastolic dysfunction 2. Normal cardiac valvular Doppler 3. No gross pericardial effusion Code(s): I42.8 - Other cardiomyopathies Plan: Nonischemic cardiomyopathy with normalized LV ejection fraction on current neurohormonal modulation with carvedilol, losartan as well as spironolactone therapy. Importance of neurohormonal modulation was discussed. Continue the same. Has helped her. Follow-up echocardiogram in 1 year's time. Avoidance of cardiotoxic agent was discussed. At least annual check for BNP should be performed. Continue aggressive vascular risk factor modification. Blood pr essure is currently well optimized. Diabetes under your care with goal hemoglobin A1c less than 7%. Goal LDL less than 100 mg/dL. She is encouraged to continue to participate in physical activity as tolerated along with weight loss program. Will follow up in the clinic in 1 year's time, sooner p.r.n.. Thank you for allowing me to partake in her care Orders: Orders CA echo transthoracic complete 50 Weeks I42.8 - Other cardiomyopathies Medications: Changed From tirzepatide 10 mg (0.5 mL) subcut QWEEK 12 weeks 6 mL 3RF E11.65 - Type 2 diabetes mellitus with hyperglycemia To tirzepatide 10 mg subcut QWEEK E11.65 - Type 2 diabetes mellitus with hyperglycemia Coding Level of Care Code Est Pt Level 4 (67967) Diagnoses Nonischemic cardiomyopathy I42.8 CPT Codes EKG - CPT: 09454-[id number], Complete ([id number])
== END 2023-09-26 13:59 | disposition home or self-care (01) ==
PROVIDERS: Visit Provider Internal Medicine Cardiovascular Disease
DX: I42.8 Other cardiomyopathies (principal)
CPT/HCPCS: 93010; 99214

== ENCOUNTER → 2023-09-26 13:17 | Outpatient (BNVA) | payer OTHER, SELFPAY | PROVIDERS: Visit Provider Internal Medicine Cardiovascular Disease | DX: I42.8 Other cardiomyopathies (principal); Z79.899 Other long term (current) drug therapy | CPT/HCPCS: 93005 ==

== ENCOUNTER 2023-10-22 08:47 | Outpatient (AMB) | payer OTHER, SELFPAY ==
--- NOTE | 2023-10-22 08:51 | A.OFFVIS_ITS ---
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 Doing well with no concerns. She tries to eat healthy and stays active with exercise. Regular monthly menses. Currently is not sexually active. She denies vaginal itching and irritation. STI screening offered; she declines. Denies family history of breast or ovarian. FH colon cancer. Last pap smear 2020, negative. Mammogram: 08/2023. [facility] Medical History Paresthesias Hypersomnia Snoring History of GI bleed Nonischemic cardiomyopathy PCOS (polycystic ovarian syndrome) Congestive heart failure Obesity (BMI 30-39.9) Ocular migraine Hypertension Hypercholesterolemia GERD (gastroesophageal reflux disease) Family History Mother No problems noted. Father FH: prostate cancer Maternal Grandfather Colon cancer Social History Housing: House Alcohol intake: current Alcohol intake frequency: a few times a month Patient Tobacco Use Status: Never used Tobacco e-Cigarette/Vaping Use: Never Used Second Hand Smoke Exposure: No service: No Current occupational status: employed Current occupational exposures/hazards: No Cognitive needs: No Hearing needs: No Vision needs: No Female Reproductive History Menstrual Age of Menarche: 15 Duration of menses: 3-5 days Date of last menstrual period: 10/08/23 control method: none Total pregnancies: 0 Date of last pap smear: 01/31/21 (neg pap and hpv) Date of Mammogram: 08/16/23 (Birad 1) Review of Systems Const All systems reviewed & are unremarkable except as noted in HPI and below Reports as per HPI Eyes Reports no additional complaints ENT Reports no additional complaints Card Reports no additional complaints Resp Reports no additional complaints GI Reports as per HPI and Reports no additional complaints Reports as per HPI Musc Reports no additional complaints Skin/Breast Reports as per HPI Neuro Reports no additional complaints Psych Reports no additional complaints Endo Reports no additional complaints Issa/Lymph Reports no additional complaints Aller/Immun Reports no additional complaints Physical Exam Vital Signs: Last Vital Signs BP 90/60 10/22/23 08:52 BMI result Body Mass Index 28.4 Const General: cooperative, healthy appearing, no acute distress, well developed and alert Orientation/consciousness: patient oriented x3 HEENT Head: Yes normal to inspection Eyes General: appearance normal, both eyes and all related structures Neck Neck: Yes normal visual inspection Thyroid: Thyroid normal Chest Chest palpation & inspection: normal inspection of the chest and other (no puckering, dimpling, peau de orange, retraction, discharge, masses) Breast/axilla inspection: normal inspection of the breasts Breast/axilla palpation: normal palpation of the breasts Resp Effort & Inspection: normal respiratory effort GI Inspection: Yes normal to inspection Palpation (GI): Soft to palpation Rectal Exam - Female: deferred General: Yes bladder normal to palpation External Female Exam: normal external appearance and normal appearance of the urethra Speculum Exam - Vagina: normal appearance of the vagina, normal palpation and normal vaginal discharge Speculum Exam - Cervix: normal appearance of the cervix and normal palpation Bimanual exam- vagina & uterus: normal bimanual exam, normal palpation, uterine size normal, bladder normal to palpation, normal palpation and non-tender Bimanual Exam- Adnexa, other: no masses Skin General skin exam: no rashes or lesions noted Rashes: no rashes Neuro General: patient oriented x3 Cognition (Neuro): normal cognition Extrem General: Yes normal to inspection Psych Attitude: cooperative Thought process: Normal thought process present Assessment & Plan Assessment & Plan (1) Encounter for well woman exam with routine gynecological exam: Code(s): Z01.419 - Encounter for gynecological examination (general) (routine) without abnormal findings Plan Discussed: Current recommendations for pap smears per ASCCP guidelines. Breast awareness and periodic breast exams. Maintain a healthy lifestyle including a well balanced diet and routine exercise. Use condoms for STI and prevention. Mammogram yearly. Colonoscopy >45, or at risk sooner. Patient verbalizes understanding and agrees to the plan of care. She was given opportunity to ask questions and all questions were answered to the best of my ability. RTO in one year for annual product marketing engineer examination. This note is constructed using voice recognition software. While every effort has been made to ensure accuracy, pharmacy order entry technician errors may have been included. Coding Level of Care Code Est Pt Prev Care 40-64y(93804) Diagnoses Encounter for well woman exam with routine gynecological exam Z01.419
[2023-10-22 08:52] VITALS: BP 90/60; BMI 28.4
== END 2023-10-22 09:27 | disposition home or self-care (01) ==
PROVIDERS: PCP Internal Medicine; Visit Provider Advanced Practice Midwife
DX: Z01.419 Encounter for gynecological examination (general) (routine) without abnormal findings (principal)
CPT/HCPCS: 99396

== ENCOUNTER → 2023-10-22 08:47 | Outpatient (BNVA) | payer OTHER, SELFPAY | PROVIDERS: PCP Internal Medicine; Visit Provider Advanced Practice Midwife ==

== ENCOUNTER 2023-10-23 13:46 | Outpatient (REF) | payer OTHER, SELFPAY ==
--- NOTE | 2023-10-23 13:48 | EMG_ITS ---
Chief complaint: Worsening left leg pain and numbness Reason for referral: Evaluate for radiculopathy versus neuropathy NCS/EMG done by Dr. Spann 12/06/2022 bilateral lower extremity reviewed. It showed absent or very small amplitudes of sensory nerves, prolonged distal latencies of the motor nerves, and prolonged H reflexes. Needle EMG of lower extremities not done. No denervation seen in paraspinals. Referred by: Dr. Rubi Procedure done: Left lower extremity NCS/EMG, right side for comparison Precautions and/or limitations: None The limb temperature was monitored continuously and remained between 32-36 degrees C during the performance of the NCS. Nerve Conduction Studies Anti Sensory Summary Table ?Stim Site NR Onset (ms) Norm Onset (ms) Peak (ms) Norm Peak (ms) O-P Amp (?V) Norm O-P Amp Site1 Site2 Delta-0 (ms) Dist (cm) Ayden (m/s) Norm Ayden (m/s) Left Sural Anti Sensory (Lat Mall) Calf NR <4.0 >5.0 Calf Lat Mall 14.0 Right Sural Anti Sensory (Lat Mall) Calf NR <4.0 >5.0 Calf Lat Mall 14.0 Motor Summary Table ?Stim Site NR Onset (ms) Norm Onset (ms) O-P Amp (mV) Norm O-P Amp iAmp (mV) Amp (1st) (%) Site1 Site2 Delta-0 (ms) Dist (cm) Ayden (m/s) Norm Ayden (m/s) Left Peroneal Motor (Ext Dig Brev) Ankle ? 6.6 <4.0 5.3 >2.5 7.0 100.0 Ankle Ext Dig Brev 6.6 0.0 B Fib ? 14.0 5.2 6.5 98.1 B Fib Ankle 7.4 35.0 47 >40 Poplt ? 14.8 5.2 6.6 98.1 Poplt B Fib 0.8 5.0 62 >40 Left Tibial Motor (Abd Pham Brev) Ankle ? 7.3 <5 3.6 >2.5 5.7 100.0 Ankle Abd Pham Brev 7.3 0.0 Knee ? 14.2 1.4 2.5 38.9 Knee Ankle 6.9 43.0 62 >40 H Reflex Studies ?NR H-Lat (ms) L-R H-Lat (ms) L-R Lat Norm Left Tibial (Gastroc) NR <2.0 Right Tibial (Gastroc) NR <2.0 EMG ?Side Muscle Nerve Root Ins Act Fibs Psw Amp Dur Poly Recrt Int Pat Comment Left AbdHallucis MedPlantar S1-2 Incr 1+ 1+ Nml Nml 0 Nml Complete Left AntTibialis Dp Br Peron L4-5 Nml Nml Nml Nml Nml 0 Nml Complete Left PostTibialis Tibial L5, S1 Nml Nml Nml Nml Nml 0 Nml Complete Left MedGastroc Tibial S1-2 Nml Nml Nml Nml Nml 0 Nml Complete Left VastusMed Femoral L2-4 Nml Nml Nml Nml Nml 0 Nml Complete Right AbdHallucis MedPlantar S1-2 Incr 1+ 1+ Nml Nml 0 Nml Complete Paraspinal EMG ?Side Muscle Nerve Root Ins Act Fibs Psw Comment Left Lumbar Upper Rami Nml Nml Nml Left Lumbar Mid Rami Nml Nml Nml Left Lumbar Lower Rami Nml Nml Nml FINDINGS: Left peroneal nerve showed prolonged distal latency, normal amplitude and normal conduction velocity. Left tibial nerve showed prolonged distal latency, normal amplitude and normal conduction velocity. Bilateral sural nerves absent response. H reflexes absent bilateral. Concentric needle EMG was performed in selected muscles of the extremities and lumbar paraspinals. Study revealed Signs of electric abnormalities as shown in the table below. Bilateral AH showed increased insertional activity, PSWs and fibrillations. IMPRESSION: 1. This is an abnormal study. 2. 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 3. There is no electrodiagnostic evidence for lumbosacral plexopathy or lumbar radiculopathy. CLINICAL COMMENT: Results are similar, if not slightly worse, to NCS done by Dr. Spann.. Thank you for your kind referral. Vidya Greco MD, ERIK Board Certified, [place] Board [employer] and Rehabilitation (ABPMR) Board Certified, [place] Board of Electrodiagnostic Medicine (ABEM) CODIN [id number] MTDD
== END 2023-10-23 13:47 | disposition home or self-care (01) ==
LOC: HO.NEURO 13:46
PROVIDERS: PCP Internal Medicine; Visit Provider Psychiatry & Neurology Neurology
DX: R20.0 Anesthesia of skin (principal)
CPT/HCPCS: 95885; 95886; 95909

== ENCOUNTER → 2023-10-23 13:48 | Outpatient (BNV) | payer OTHER, SELFPAY | PROVIDERS: PCP Internal Medicine; Visit Provider Physical Medicine & Rehabilitation | DX: M79.605 Pain in left leg (principal); G62.89 Other specified polyneuropathies | CPT/HCPCS: 95885; 95886; 95909 ==

== ENCOUNTER 2023-11-15 11:29 | Outpatient (REF) | payer OTHER, SELFPAY ==
[2023-11-15 11:57] LABS: MANUAL DIFF FLAG NO
[2023-11-15 12:43] LABS: Basophils Percent Auto 0.4 % (0-2); Eosinophils Absolute Auto 0.3 X10*3/uL (0.0-0.4); Hematocrit 38.6 % (37.0-47.0); Hemoglobin 13.5 g/dl (12.0-16.0); Imm Gran Abs Auto 0.03 X10*3/uL (0.00-0.03); Imm Gran Pct Auto 0.3 % (0.0-0.4); Mean Corpuscular Hemoglobin 29.9 pg (27.0-33.0); Mean Corpuscular Volume 85.6 fL (80.0-98.0); Mean Platelet Volume 8.9 fL (9.4-12.3); Monocytes Absolute Auto 0.7 X10*3/uL (0.1-1.2); Monocytes Percent Auto 6.8 % (2-11); Neutrophils Absolute Auto 6.5 x10*3/uL (2.0-8.3); Neutrophils Percent Auto 61.5 % (45-73); Platelet Count 315 X10*3/uL (160-400); Red Blood Count 4.51 X10*6/uL (4.20-5.50); White Blood Count 10.5 X10*3/uL (4.8-10.8)
[2023-11-15 12:53] LABS: Estimated Average Glucose 85 mg/dL; Hemoglobin A1c % 4.6 % (<6.0)
[2023-11-15 13:40] LABS: Alanine Aminotransferase 16 U/L (0-31); Albumin Level 4.1 g/dL (3.5-5.0); Alkaline Phosphatase 36 U/L (39-117); Anion Gap 11 (12-20); Aspartate Amino Transferase 15 U/L (5-31); Bilirubin Total 0.7 mg/dL (0.0-1.0); Blood Urea Nitrogen 12 mg/dL (9-16); Calcium 9.2 mg/dL (8.4-10.2); Carbon Dioxide 28 mmol/L (22-29); Chloride 104 mmol/L (96-108); Cholesterol 135 mg/dL (<200); Estimated Glomerular Filt Rate > 60; Glucose Random 78 mg/dL (60-115); HDL Cholesterol 44 mg/dL (>40); LDL Cholesterol Calculated 81 mg/dL (<100); Sodium 139 mmol/L (135-145); Total Protein 6.9 g/dL (6.5-8.0); Triglycerides 53 mg/dL (<150)
[2023-11-15 13:57] LABS: Free T4 (Free Thyroxine) 1.29 ng/dL (0.71-1.85); Thyroid Stimulating Hormone 1.01 uIU/mL (0.32-4.0); Vitamin D 25-OH Total 66.7 ng/mL (>30)
[2023-11-15 14:02] LABS: Folate 14.6 ng/mL (> or = 4.0); Vitamin B12 852 pg/mL (200-900)
[2023-11-15 14:23] LABS: Creatinine Urine 291.05 mg/dL; Microalbum/Creatinine Ratio Ur 13.7 ug/mg cr (<30)
== END 2023-11-15 11:30 | disposition home or self-care (01) ==
LOC: HO.LAB 11:29
PROVIDERS: PCP Internal Medicine; Visit Provider Internal Medicine
DX: E11.65 Type 2 diabetes mellitus with hyperglycemia (principal); E78.00 Pure hypercholesterolemia, unspecified
CPT/HCPCS: 36415; 80053; 80061; 82043; 82306; 82570; 82607; 82746; 83036; 84439; 84443; 85025

== ENCOUNTER 2023-11-18 13:16 | Outpatient (AMB) | payer OTHER, SELFPAY ==
[2023-11-18 13:21] VITALS: BP 122/68; PULSE 92; O2SAT 97; BMI 27.5
--- NOTE | 2023-11-18 13:21 | A.OFFPC_ITS ---
Vital Signs 11/18/23 13:21 Height 5 ft 9 in Weight 186 lb BMI 27.5 BP 122/68 Blood Pressure Location Lt brachial Position Sitting Pulse 92 Pulse Source Pulse Oximeter Pulse Oximetry (%) 97 Oxygen Delivery Method Room Air Intake Visit Reasons: DM Allergies No Known Allergies Allergy (Verified 11/18/23 13:21) Tobacco use date assessed: 11/18/23 Dental Screening Dental Screen Date: 11/18/23 Did you have a dental visit in the last 12 months?: Yes Did you have a dental problem in the last 6 months where you did not have access to dental care?: No Was dental information given to patient?: Patient has dentist HPI DM HPI Details 43-year-old overweight female with diabe meseret mellitus, hypercholesterolemia GERD hypertension and history of nonischemic cardiomyopathy last seen in May 2023. Patient is here for follow-up. Mammogram is up-to-date. Patient had some feet numbness in nerve conduction test done showing distal sensorimotor polyneuropathy primarily axonal features no electrodiagnostic evidence of lumbosacral plexopathy or lumbar radiculopathy. Patient also had follow-up with cardiology. Echocardiogram normal left ventricular function with very mild symmetric septal hypertrophy with grade 1 diastolic dysfunction October 2022 continuing with carvedilol, losartan and spironolactone advised annual BNP checked aggressive vascular risk factor modification LDL goal of less than 100. Patient also had sleep study done September 2023 AHI of 5 conservative measure PFSH Medical History Paresthesias Hypersomnia Snoring History of GI bleed Nonischemic cardiomyopathy PCOS (polycystic ovarian syndrome) Congestive heart failure Obesity (BMI 30-39.9) Ocular migraine Hypertension Hypercholesterolemia GERD (gastroesophageal reflux disease) Family History (Updated 11/18/23 @ 13:25 by Gill Ambriz CMA) Mother No problems noted. Father FH: prostate cancer Maternal Grandfather Colon cancer Social History Housing: House Alcohol intake: current Alcohol intake frequency: a few times a month Patient Tobacco Use Status: Never used Tobacco e-Cigarette/Vaping Use: Never Used Second Hand Smoke Exposure: No service: No Current occupational status: employed Current occupational exposures/hazards: No Cognitive needs: No Hearing needs: No Vision needs: No Female Reproductive History Menstrual Age of Menarche: 15 Questionnaire PHQ-9 Over the last 2 weeks, how often have you been bothered by any of the following problems? 1. Little interest or pleasure in doing things: not at all 2. Feeling down, depressed, or hopeless: not at all 3. Trouble falling or staying asleep, or sleeping too much: not at all 4. Feeling tired or having little energy: not at all 5. Poor appetite or overeating: not at all 6. Feeling bad about yourself - or that you are a failure or have let yourself or your family down: not at all 7. Trouble concentrating on things, such as reading the newspaper or watching television: not at all 8. Moving or speaking so slowly that other people could have noticed. Or the opposite - being so fidgety or restless that you have been moving around a lot more than usual: not at all 9. Thoughts that you would be better off or of hurting yourself in some way: not at all Total score: 0 Depression Screening Interpretation: Negative Depression Screening Done: Yes Source: Developed by Drs. Dandy Vieyra, Marianne Rascon, Lance Gtz and colleagues, with an educational selin from [employer]. Thrive Questionnaire Date Thrive assessed: 11/18/23 I am a: Patient What is your living situation today?: I have a steady place to live Within the past 12 months, did the food you bought not last and you didn't have the money to get more?: Never true Within the past 12 months, did you worry whether your food would run out before you got money to buy more?: Never true Do you have trouble paying for medicines?: No Do you have trouble getting transportation to medical appointments?: No Do you have trouble paying your heating and electricity bill?: No Do you have trouble taking care of your child, family member or friend?: No Do you have trouble with day-to-day activities such as bathing, preparing meals, shopping, managing finances, etc.?: No Are you currently unemployed and looking for a job?: No Are you interested in more education?: No Currently or been in a relationship where the following occur: no concerns reported THRIVE Score: 0 AUDIT C Alcohol Use Questionnaire (AUDIT-C) 1. How often do you have a drink containing alcohol?: 2-4 times a month 2. How many drinks containing alcohol do you have on a typical day when you are drinking?: 1 or 2 3. How often do you have six or more drinks on one occasion?: Never Total Score: 2 SELENA-7 AMB Questionnaire SELENA-7 Date SELENA - 7 assessed: 11/18/23 Feeling nervous, anxious, or on edge: 0 = Not at all Not being able to stop or control worryin = Not at all Worrying too much about different things: 0 = Not at all Trouble relaxin = Not at all Being so restless that it is hard to sit still: 0 = Not at all Becoming easily annoyed or irritable: 0 = Not at all Feeling afraid as if something awful might happen: 0 = Not at all Total SELENA-7 score (0-4 normal; 5-9 mild; 10-14 moderate; 15-21 severe): 0 Source: Developed by Drs. Dandy Vieyra, Marianne Rascon, Lance Gtz and colleagues, with an educational selin from [employer]. Physical exam (Primary Care) Vital Signs: Last Vital Signs Pulse 92 11/18/23 13:21 BP 122/68 11/18/23 13:21 Pulse Ox 97 11/18/23 13:21 Oxygen Delivery Method Room Air 11/18/23 13:21 BMI result Body Mass Index 27.5 Tobacco/Smoking Status: Tobacco use Status Tobacco use date assessed 11/18/23 11/18/23 13:29 Patient Tobacco Use Status Never used Tobacco 11/18/23 13:23 e-Cigarette/Vaping Use Never Used 11/18/23 13:23 PHQ-9: PHQ-9 Score PHQ-9: Total score 0 11/18/23 13:29 Depression Screening Interpretation: Negative Thrive Assessment: Date of Thrive Assessment Date Thrive assessed 11/18/23 11/18/23 13:29 Currently or been in a relationship where the following occur: no concerns reported Const General: alert; No acute distress Eyes Conjunctivae: conjunctivae normal Resp Auscultation: clear to auscultation bilaterally Cardio Rate: regular rate Rhythm: regular rhythm GI Inspection: Yes normal to inspection Extrem General: Yes normal to inspection and No edema Assessment and Plan Assessment & Plan (1) Type 2 diabetes mellitus with hyperglycemia: Code(s): E11.65 - Type 2 diabetes mellitus with hyperglycemia Plan: Decrease the amount of carbohydrate intake, pasta, bread, rice and potatoes are all sugar and that is aside from all the sweet stuff, remember that fruits are good but they are Sweet also. Hemoglobin A1c goal of less than 6.5. Patient is at goal. On metformin 500 mg once a day and Mounjaro 10 mg once a week doing good and have lost a lot of weight. (2) Nonischemic cardiomyopathy: Comment: January 2013 EF 61%, April 2018 EF 59% June 2020 echocardiogram ejection fraction 53% normal left ventricular activity October 2022. Normal LV systolic function with very mild asymmetric septal hypertrophy with grade 1 diastolic dysfunction 2. Normal cardiac valvular Doppler 3. No gross pericardial effusion Code(s): I42.8 - Other cardiomyopathies Plan: Patient follows up with Cardiology Left ventricular function normalized continuing to monitor yearly echocardiogram (3) Hypertension: Code(s): I10 - Essential (primary) hypertension Qualifiers: Hypertension type: essential hypertension Qualified Code(s): I10 - Essential (primary) hypertension Plan: Continue with blood pressure medication. Decrease salt intake and exercise on spironolactone 25 mg once a day losartan 100 mg once a day carvedilol 25 mg twice a day. (4) Hypercholesterolemia: Code(s): E78.00 - Pure hypercholesterolemia, unspecified Plan: Avoid fried foods, chicken skin, eggs, butter margarine, pastries and meat. Be it pork or beef they have a lot of cholesterol on simvastatin 10 mg once a day and blood work therapeutic. (5) GERD (gastroesophageal reflux disease): Code(s): K21.9 - Gastro-esophageal reflux disease without esophagitis Qualifiers: Esophagitis presence: without esophagitis Qualified Code(s): K21.9 - Gastro-esophageal reflux disease without esophagitis Plan: Avoid the foods that causes that usually spicy foods, tomato products, juices, coffee, soda and foods that your sensitive to. After eating do not lie down, allow 3-4 hours before in lie down. And keep the head of bed above 30 degrees to avoid the acid from going up. 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 Most likely diabetic. Nerve conduction test showing peroneal neuropathy. Orders: Orders Magnesium 2 Months R20.2 - Paresthesia of skin B Type Natriuretic Peptide 2 Months E11.65 - Type 2 diabetes mellitus with hyperglycemia Hemoglobin A1c 2 Months E11.65 - Type 2 diabetes mellitus with hyperglycemia Coding Level of Care Code Est Pt Level 4 (49669) Diagnoses Type 2 diabetes mellitus with hyperglycemia E11.65 Nonischemic cardiomyopathy I42.8 Essential hypertension I10 Hypertension type: essential hypertension Hypercholesterolemia E78.00 Gastroesophageal reflux disease without esophagitis K21.9 Esophagitis presence: without esophagitis Left leg numbness R20.0
== END 2023-11-18 13:58 | disposition home or self-care (01) ==
PROVIDERS: PCP Internal Medicine; Visit Provider Internal Medicine
DX: E11.65 Type 2 diabetes mellitus with hyperglycemia (principal); I42.8 Other cardiomyopathies; I10 Essential (primary) hypertension; E78.00 Pure hypercholesterolemia, unspecified; K21.9 Gastro-esophageal reflux disease without esophagitis; R20.0 Anesthesia of skin
CPT/HCPCS: 99214

== ENCOUNTER 2023-11-20 15:16 | Outpatient (AMB) | payer OTHER, SELFPAY ==
--- NOTE | 2023-11-20 15:28 | A.OFFVIS_ITS ---
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 Required: No Accompanied by: Self / Same As Patient Allergies No Known Allergies Allergy (Verified 11/20/23 15:32) Medication List - Last Reconciled 11/20/23 by DANDRE Landaverde biotin 1 mg PO DAILY carvedilol 25 mg PO BID 90 days cetirizine (Zyrtec) 10 mg PO DAILY PRN fluticasone propionate 50 mcg/actuation 1 spray intranasal Q12H gabapentin 100 mg PO BEDTIME lactobacillus combination no.4 (Probiotic) 3,000 mmu cells PO DAILY losartan 100 mg PO DAILY 90 days metformin 500 mg PO DAILY multivitamin 1 tab PO DAILY pantoprazole 40 mg PO DAILY 90 days simvastatin 10 mg PO BEDTIME 30 days spironolactone 25 mg PO DAILY 90 days tirzepatide 10 mg subcut QWEEK HPI HPI Comments History of Present Illness Details 43-yr-old female presents for f/u visit. Pt denies any significant interval medical changes. She does endorse snoring, nasal congestion, h/o frequent sinus infections. She reports she usually sleeps on her side. 09/23/2023, HST: AHI 5.0 per hour, O2 na dir 83%, SpO2 less than 90% x's 0.4 minutes of study, under 88% x's 1.1 minutes Pt reports she has numbness in BLE L > R. It can feel like a stripe of numbness form the left hip/buttock through the foot. She can also have sacral numbness and discomfort. She can feel the ground when she walks. Has been noticing more BLE leg cramps, more at rest and worse at night. No weakness. 07/23/23 10:19 Ferritin Level 135 25 OH-Vitamin D L evel ?55.3 11/15/23 11:56 Hemoglobin A1c % 4.6 Vitamin B12 852 25-OH Vitamin D To annie 66.7 Folate 14.6 TSH 1.01 Free T4 1.29 10/23/23, BLE EMG/NCS: -There is electrodiagnostic evidence for distal sensorimotor polyneuropathy, primarily axonal features. -There is no electrodiagnostic evidence for lumbosacral plexopathy or lumbar radiculopathy. Possiblely slightly progressed since last year. [facility] Medical History Paresthesias Hypersomnia Snoring History of GI bleed Nonischemic cardiomyopathy PCOS (polycystic ovarian syndrome) Congestive heart failure Obesity (BMI 30-39.9) Ocular migraine Hypertension Hypercholesterolemia GERD (gastroesophageal reflux disease) Family History Mother No problems noted. Father FH: prostate cancer Maternal Grandfather Colon cancer Social History Housing: House Alcohol intake: current Alcohol intake frequency: a few times a month Patient Tobacco Use Status: Never used Tobacco e-Cigarette/Vaping Use: Never Used Second Hand Smoke Exposure: No service: No Current occupational status: employed Current occupational exposures/hazards: No Cognitive needs: No Hearing needs: No Vision needs: No Female Reproductive History Menstrual Age of Menarche: 15 Physical Exam Vital Signs: Last Vital Signs Pulse 90 11/20/23 15:29 BP 98/62 11/20/23 15:29 Pulse Ox 96 11/20/23 15:29 Oxygen Delivery Method Room Air 11/20/23 15:29 BMI result Body Mass Index 27.9 Const General: cooperative and no acute distress Orientation/consciousness: patient oriented x3 HEENT Other: Mallampati stage IV Resp Effort & Inspection: normal respiratory effort and able to speak in complete sentences Neuro General: patient oriented x3 Cranial nerves: Yes CN's II-XII intact bilaterally Cognition (Neuro): normal cognition Psych Appearance: grossly normal Mental Status: mental status grossly normal Speech and movement: Normal speech and movement present Affect: normal affect Attitude: cooperative Assessment & Plan Assessment & Plan (1) Mild obstructive sleep apnea: Code(s): G47.33 - Obstructive sleep apnea (adult) (pediatric) (2) Paresthesias: Code(s): R20.2 - Paresthesia of skin (3) Left leg numbness: Comment: 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 Patient has a history of nasal and sinus congestion, remote history of frequent sinus infections. Thus will refer her for ENT consult for alternate treatments for sleep apnea. In the meantime, avoid sleeping in supine position. For cramps, paresthesias and neuropathy: Reviewed LLE EMG/NCS: Results consistent with distal sensorimotor polyneuropathy, primarily axonal features, likely related to diabetes. Recent ferritin, hemoglobin A1c, B12, folate, TSH were within normal limits. We will check additional labs for possible underlying etiologies of neuropathy beyond diabetes. Trial magnesium 400 mg q.h.s. for leg cramps. Trial OTC derive nerve release supplement, alpha lipoic acid. Follow up in 6 months or sooner as needed. Orders: Orders Rheumatoid Factor Today D64.9 - Anemia, unspecified, E11.65 - Type 2 diabetes mellitus with hyperglycemia, I10 - Essential (primary) hypertension, R20.2 - Paresthesia of skin Creatine Kinase Total Today D64.9 - Anemia, unspecified, E11.65 - Type 2 diabetes mellitus with hyperglycemia, I10 - Essential (primary) hypertension, R20.2 - Paresthesia of skin Vitamin B2 (Riboflavin) Today D64.9 - Anemia, unspecified, E11.65 - Type 2 diabetes mellitus with hyperglycemia, I10 - Essential (primary) hypertension, R20.2 - Paresthesia of skin Vitamin B5 (Pantothenic Acid) Today D64.9 - Anemia, unspecified, E11.65 - Type 2 diabetes mellitus with hyperglycemia, I10 - Essential (primary) hypertension, R20.2 - Paresthesia of skin IRON PROFILE Today D64.9 - Anemia, unspecified, E11.65 - Type 2 diabetes mellitus with hyperglycemia, I10 - Essential (primary) hypertension, R20.2 - Paresthesia of skin Comprehensive Met. Panel Today D64.9 - Anemia, unspecified, E11.65 - Type 2 diabetes mellitus with hyperglycemia, I10 - Essential (primary) hypertension, R20.2 - Paresthesia of skin Complete Blood Count Auto Diff Today D64.9 - Anemia, unspecified, E11.65 - Type 2 diabetes mellitus with hyperglycemia, I10 - Essential (primary) hypertension, R20.2 - Paresthesia of skin Erythrocyte Sedimentation Rate Today D64.9 - Anemia, unspecified, E11.65 - Type 2 diabetes mellitus with hyperglycemia, I10 - Essential (primary) hypertension, R20.2 - Paresthesia of skin BOZENA Reflex Titer and Pattern Today D64.9 - Anemia, unspecified, E11.65 - Type 2 diabetes mellitus with hyperglycemia, I10 - Essential (primary) hypertension, R20.2 - Paresthesia of skin CRP High Sensitivity Today D64.9 - Anemia, unspecified, E11.65 - Type 2 diabetes mellitus with hyperglycemia, I10 - Essential (primary) hypertension, R20.2 - Paresthesia of skin Vitamin B1 Today D64.9 - Anemia, unspecified, E11.65 - Type 2 diabetes mellitus with hyperglycemia, I10 - Essential (primary) hypertension, R20.2 - Paresthesia of skin Vitamin B3 (Niacin) Today D64.9 - Anemia, unspecified, E11.65 - Type 2 diabetes mellitus with hyperglycemia, I10 - Essential (primary) hypertension, R20.2 - Paresthesia of skin Vitamin B6 Today D64.9 - Anemia, unspecified, E11.65 - Type 2 diabetes mellitus with hyperglycemia, I10 - Essential (primary) hypertension, R20.2 - Paresthesia of skin Ferritin Today D64.9 - Anemia, unspecified, E11.65 - Type 2 diabetes mellitus with hyperglycemia, I10 - Essential (primary) hypertension, R20.2 - Paresthesia of skin Referrals Ear/Nose/Throat Referral G47.33 - Obstructive sleep apnea (adult) (pediatric), R06.83 - Snoring, R09.81 - Nasal congestion Medications: New magnesium oxide may hold for loose stools 400 mg PO BEDTIME 30 days 30 tabs 6RF Coding Level of Care Code Est Pt Level 4 (85447) Diagnoses Mild obstructive sleep apnea G47.33 Paresthesias R20.2 Left leg numbness R20.0 Leg cramps R25.2
[2023-11-20 15:29] VITALS: BP 98/62; PULSE 90; O2SAT 96; BMI 27.9
== END 2023-11-20 16:21 | disposition home or self-care (01) ==
PROVIDERS: Absent Provider Nurse Practitioner Family; PCP Internal Medicine; Visit Provider Psychiatry & Neurology Neurology
DX: G47.33 Obstructive sleep apnea (adult) (pediatric) (principal); R20.2 Paresthesia of skin; R20.0 Anesthesia of skin; R25.2 Cramp and spasm
CPT/HCPCS: 99214

== ENCOUNTER → 2023-11-20 15:16 | Outpatient (BNVA) | payer OTHER, SELFPAY | PROVIDERS: Absent Provider Nurse Practitioner Family; PCP Internal Medicine; Visit Provider Psychiatry & Neurology Neurology ==

== ENCOUNTER 2024-01-01 13:44 | Outpatient (REF) | payer OTHER, SELFPAY ==
[2024-01-01 14:03] LABS: MANUAL DIFF FLAG NO
[2024-01-01 14:32] LABS: Basophils Absolute Auto 0.1 X10*3/uL (0.0-0.2); Basophils Percent Auto 0.6 % (0-2); Eosinophils Absolute Auto 0.4 X10*3/uL (0.0-0.4); Eosinophils Percent Auto 3.6 % (0-4); Hematocrit 39.6 % (37.0-47.0); Hemoglobin 13.9 g/dl (12.0-16.0); Imm Gran Abs Auto 0.03 X10*3/uL (0.00-0.03); Imm Gran Pct Auto 0.3 % (0.0-0.4); Lymphocytes Absolute Auto 2.7 X10*3/uL (1.2-4.9); Lymphocytes Percent Auto 28.1 % (20-40); Mean Corpuscular HGB Conc 35.1 g/dl (31.0-35.0); Mean Corpuscular Hemoglobin 30.2 pg (27.0-33.0); Mean Corpuscular Volume 86.1 fL (80.0-98.0); Mean Platelet Volume 8.8 fL (9.4-12.3); Monocytes Absolute Auto 0.7 X10*3/uL (0.1-1.2); Monocytes Percent Auto 7.2 % (2-11); Neutrophils Absolute Auto 5.9 x10*3/uL (2.0-8.3); Neutrophils Percent Auto 60.2 % (45-73); Platelet Count 311 X10*3/uL (160-400); Red Cell Distribution Width 11.9 % (11.0-16.0); White Blood Count 9.8 X10*3/uL (4.8-10.8)
[2024-01-01 15:11] LABS: Erythrocyte Sedimentation Rate 8 MM/HR (0-20)
[2024-01-01 15:24] LABS: Rheumatoid Factor < 13.0 IU/mL (<15.0)
[2024-01-01 17:47] LABS: Alanine Aminotransferase 14 U/L (0-31); Albumin Level 4.4 g/dL (3.5-5.0); Alkaline Phosphatase 38 U/L (39-117); Anion Gap 14 (12-20); Aspartate Amino Transferase 14 U/L (5-31); Blood Urea Nitrogen 16 mg/dL (9-16); Calcium 9.9 mg/dL (8.4-10.2); Carbon Dioxide 26 mmol/L (22-29); Chloride 103 mmol/L (96-108); Estimated Glomerular Filt Rate > 60; Glucose Random 86 mg/dL (60-115); Iron 111 mcg/dL (30-160); Percent Iron Saturation 39 % (15-50); Potassium 4.2 mmol/L (3.3-5.1); Sodium 139 mmol/L (135-145); Total Iron Binding Capacity 285 mcg/dL (228-428); Total Protein 7.5 g/dL (6.5-8.0); Unsaturated Iron Binding 174 ug/dL
[2024-01-01 17:48] LABS: Ferritin 160 ng/mL (10-250)
[2024-01-02 14:54] LABS: CRP High Sensitivity 0.8 mg/L
[2024-01-07 16:32] LABS: Vitamin B1 50 nmol/L (8-30)
[2024-01-08 14:39] LABS: Anti Nuclear Antibody Screen NEGATIVE (NEGATIVE)
[2024-01-09 10:38] LABS: Nicotinamide 23 ng/mL; Vit B3 - Nicotinic Acid <20 ng/mL
[2024-01-09 10:59] LABS: Vitamin B5 (Pantothenic Acid) 108 ng/mL (<275)
[2024-01-10 12:24] LABS: Vitamin B2 (Riboflavin) 31.5 nmol/L (6.2-39.0)
[2024-01-12 16:43] LABS: Vitamin B6 70.6 ng/mL (2.1-21.7)
== END 2024-01-01 13:45 | disposition home or self-care (01) ==
LOC: HO.LAB 13:44
PROVIDERS: PCP Internal Medicine; Visit Provider Nurse Practitioner Family
DX: D64.9 Anemia, unspecified (principal); R20.2 Paresthesia of skin; E11.65 Type 2 diabetes mellitus with hyperglycemia; I10 Essential (primary) hypertension
CPT/HCPCS: 36415; 80053; 82550; 82728; 83540; 84207; 84252; 84425; 84591; 85025; 85652; 86038; 86141; 86431

== ENCOUNTER 2024-02-05 09:19 | Outpatient (REF) | payer OTHER, SELFPAY ==
[2024-02-05 10:05] LABS: Estimated Average Glucose 88 mg/dL; Hemoglobin A1c % 4.7 % (<6.0)
[2024-02-05 10:23] LABS: B Type Natriuretic Peptide 15 pg/mL (<100)
[2024-02-05 10:28] LABS: Magnesium 1.9 mg/dL (1.6-2.6)
== END 2024-02-05 09:20 | disposition home or self-care (01) ==
LOC: HO.LAB 09:19
PROVIDERS: PCP Internal Medicine; Visit Provider Internal Medicine
DX: R20.2 Paresthesia of skin (principal); E11.65 Type 2 diabetes mellitus with hyperglycemia
CPT/HCPCS: 36415; 83036; 83735; 83880

== ENCOUNTER 2024-02-10 10:03 | Outpatient (AMB) | payer OTHER, SELFPAY ==
[2024-02-10 10:12] VITALS: BP 122/70; PULSE 80; O2SAT 98; BMI 25.8
--- NOTE | 2024-02-10 10:12 | A.OFFPC_ITS ---
Vital Signs 02/10/24 10:12 Height 5 ft 9 in Weight 175 lb BMI 25.8 BP 122/70 Blood Pressure Location Lt brachial Position Sitting Pulse 80 Pulse Source Pulse Oximeter Pulse Oximetry (%) 98 Oxygen Delivery Method Room Air Intake Visit Reasons: PE Allergies No Known Allergies Allergy (Verified 02/10/24 10:12) Medication List - Last Reconciled 02/10/24 by Eliseo Jha MD biotin 1 mg PO DAILY carvedilol 25 mg PO BID 90 days cetirizine (Zyrtec) 10 mg PO DAILY PRN fluticasone propionate 50 mcg/actuation 1 spray intranasal Q12H gabapentin 100 mg PO BEDTIME lactobacillus combination no.4 (Probiotic) 3,000 mmu cells PO DAILY losartan 100 mg PO DAILY 90 days metformin 500 mg PO DAILY multivitamin 1 tab PO DAILY pantoprazole 40 mg PO DAILY 90 days simvastatin 10 mg PO BEDTIME 30 days spironolactone 25 mg PO DAILY 90 days tirzepatide (Mounjaro) 12.5 mg (0.5 mL) subcut QWEEK Tobacco use date assessed: 11/18/23 Dental Screening Dental Screen Date: 11/18/23 HPI PE HPI Details 43-year-old female with controlled diabe meseret mellitus history of nonischemic cardiomyopathy followed up by Cardiology hypertension hypercholesterolemia GERD last seen in 11/30/2023. Patient is here for physical exam. Mammogram is up-to-date. Patient has been referred to Neurology seen in 11/30/2023 for lower extremity numbness mild sensory more than motor peripheral neuropathy 12/29/2022 patient was referred to ear nose and throat for the sinus congestion. As for neuropathy Related to diabetes. Advised magnesium 400 mg at bedtime prescribed alpha lipoic acid. botox shot eyebrow and lip PFSH Medical History Paresthesias Hypersomnia Snoring History of GI bleed Nonischemic cardiomyopathy PCOS (polycystic ovarian syndrome) Congestive heart failure Obesity (BMI 30-39.9) Ocular migraine Hypertension Hypercholesterolemia GERD (gastroesophageal reflux disease) Family History Mother No problems noted. Father FH: prostate cancer Maternal Grandfather Colon cancer Social History (Updated 02/10/24 @ 11:00 by BRENDAN Sage Housing: House Alcohol intake: current Alcohol intake frequency: a few times a month Comment: 2 days weekend 1 glass Patient Tobacco Use Status: Never used Tobacco e-Cigarette/Vaping Use: Never Used Second Hand Smoke Exposure: No service: No Current occupational status: employed Current occupational exposures/hazards: No Cognitive needs: No Hearing needs: No Vision needs: No Female Reproductive History Menstrual Age of Menarche: 15 Questionnaire PHQ-9 Over the last 2 weeks, how often have you been bothered by any of the following problems? 1. Little interest or pleasure in doing things: not at all 2. Feeling down, depressed, or hopeless: not at all 3. Trouble falling or staying asleep, or sleeping too much: not at all 4. Feeling tired or having little energy: not at all 5. Poor appetite or overeating: not at all 6. Feeling bad about yourself - or that you are a failure or have let yourself or your family down: not at all 7. Trouble concentrating on things, such as reading the newspaper or watching television: not at all 8. Moving or speaking so slowly that other people could have noticed. Or the opposite - being so fidgety or restless that you have been moving around a lot more than usual: not at all 9. Thoughts that you would be better off or of hurting yourself in some way: not at all Total score: 0 Depression Screening Interpretation: Negative Depression Screening Done: Yes Source: Developed by Drs. Dandy Vieyra, Lance Maloney and colleagues, with an educational selin from [employer]. Thrive Questionnaire Date Thrive assessed: 11/18/23 AUDIT C Alcohol Use Questionnaire (AUDIT-C) 1. How often do you have a drink containing alcohol?: 2-4 times a month 2. How many drinks containing alcohol do you have on a typical day when you are drinking?: 1 or 2 3. How often do you have six or more drinks on one occasion?: Never Total Score: 2 SELENA-7 AMB Questionnaire SELENA-7 Date SELENA - 7 assessed: 11/18/23 Source: Developed by Drs. Dandy Vieyra, Marianne Rascon, Lance Gtz and colleagues, with an educational selin from [employer]. Review of Systems Const Denies poor appetite and Denies weakness Eyes Denies no additional complaints ENT Reports Normal hearing present, Denies dizziness, Denies nasal congestion, Denies tinnitus and Denies sore throat Card Denies chest pain, Denies syncope, Denies rapid heart rate and Denies dyspnea Resp Denies cough and Denies dyspnea GI Denies change in stool character, Reports constipation, Denies diarrhea, Denies nausea and Denies vomiting Denies urinary frequency, Denies difficulty voiding and Denies dysuria Neuro Reports Normal hearing present, Denies confusion, Denies dizziness, Denies syncope and Denies weakness Psych Denies confusion Physical exam (Primary Care) Vital Signs: Last Vital Signs Pulse 80 02/10/24 10:12 BP 122/70 02/10/24 10:12 Pulse Ox 98 02/10/24 10:12 Oxygen Delivery Method Room Air 02/10/24 10:12 BMI result Body Mass Index 25.8 Tobacco/Smoking Status: Tobacco use Status Tobacco use date assessed 11/18/23 02/10/24 10:16 Patient Tobacco Use Status Never used Tobacco 02/10/24 10:16 e-Cigarette/Vaping Use Never Used 02/10/24 10:16 PHQ-9: PHQ-9 Score PHQ-9: Total score 0 02/10/24 10:16 Depression Screening Interpretation: Negative Thrive Assessment: Date of Thrive Assessment Date Thrive assessed 11/18/23 02/10/24 10:16 Const General: No confusion Orientation/consciousness: No confusion Neuro General: No confusion Cranial nerves: Yes Normal hearing present Assessment and Plan Assessment & Plan (1) Annual physical exam: Code(s): Z00.00 - Encounter for general adult medical examination without abnormal findings Plan: Patient is advised to eat healthy, keep well hydrated, keep active and have adequate sleep. (2) Type 2 diabetes mellitus with hyperglycemia: Code(s): E11.65 - Type 2 diabetes mellitus with hyperglycemia Plan: Decrease the amount of carbohydrate intake, pasta, bread, rice and potatoes are all sugar and that is aside from all the sweet stuff, remember that fruits are good but they are Sweet also. Hemoglobin A1c goal of less than 6.5 (3) Nonischemic cardiomyopathy: Comment: January 2013 EF 61%, April 2018 EF 59% June 2020 echocardiogram ejection fraction 53% normal left ventricular activity October 2022. Normal LV systolic function with very mild asymmetric septal hypertrophy with grade 1 diastolic dysfunction 2. Normal cardiac valvular Doppler 3. No gross pericardial effusion Code(s): I42.8 - Other cardiomyopathies Plan: Stable continue to monitor (4) Hypercholesterolemia: Code(s): E78.00 - Pure hypercholesterolemia, unspecified Plan: Avoid fried foods, chicken skin, eggs, butter margarine, pastries and meat. Be it pork or beef they have a lot of cholesterol LDL goal of less than 100 and triglyceride of less than 150. On simvastatin 10 mg once a day (5) Hypertension: Code(s): I10 - Essential (primary) hypertension Qualifiers: Hypertension type: essential hypertension Qualified Code(s): I10 - Essential (primary) hypertension Plan: Continue with blood pressure medication. Decrease salt intake and exercise takes spironolactone 25 mg once a day losartan 100 mg once a day carvedilol 25 mg twice a day (6) GERD (gastroesophageal reflux disease): Code(s): K21.9 - Gastro-esophageal reflux disease without esophagitis Qualifiers: Esophagitis presence: without esophagitis Qualified Code(s): K21.9 - Gastro-esophageal reflux disease without esophagitis Plan: Avoid the foods that causes that usually spicy foods, tomato products, juices, coffee, soda and foods that your sensitive to. After eating do not lie down, allow 3-4 hours before in lie down. And keep the head of bed above 30 degrees to avoid the acid from going up. (7) Peripheral neuropathy: Code(s): G62.9 - Polyneuropathy, unspecified Plan: Patient has seen Neurology placed on magnesium and lipoic acid Coding Level of Care Code Est Pt Prev Care 40-64y(70395) Diagnoses Annual physical exam Z00.00 Type 2 diabetes mellitus with hyperglycemia E11.65 Nonischemic cardiomyopathy I42.8 Hypercholesterolemia E78.00 Essential hypertension I10 Hypertension type: essential hypertension Gastroesophageal reflux disease without esophagitis K21.9 Esophagitis presence: without esophagitis Peripheral neuropathy G62.9
== END 2024-02-10 11:19 | disposition home or self-care (01) ==
PROVIDERS: PCP Internal Medicine; Visit Provider Internal Medicine
DX: Z00.00 Encounter for general adult medical examination without abnormal findings (principal); E11.65 Type 2 diabetes mellitus with hyperglycemia; I42.8 Other cardiomyopathies; E78.00 Pure hypercholesterolemia, unspecified; I10 Essential (primary) hypertension; K21.9 Gastro-esophageal reflux disease without esophagitis; G62.9 Polyneuropathy, unspecified
CPT/HCPCS: 99396

== ENCOUNTER 2024-05-19 13:19 | Outpatient (AMB) | payer OTHER, SELFPAY ==
[2024-05-19 13:26] VITALS: BMI 25.8
--- NOTE | 2024-05-19 13:26 | MHC.OFFVIS ---
Vital Signs 05/19/24 13:26 Height 5 ft 9 in Weight 175 lb BMI 25.8 Intake Visit Reasons: 6 mo f/u Intake Note: Patient presents for follow up Allergies No Known Allergies Allergy (Verified 05/19/24 13:29) Medication List - Last Reconciled 05/19/24 by DANDRE Landaverde biotin 1 mg PO DAILY carvedilol 12.5 mg (1/2 x 25 mg) PO BID 90 days cetirizine (Zyrtec) 10 mg PO DAILY PRN fluticasone propionate 50 mcg/actuation 1 spray intranasal Q12H gabapentin 100 mg PO BEDTIME lactobacillus combination no.4 (Probiotic) 3,000 mmu cells PO DAILY losartan 50 mg (1/2 x 100 mg) PO DAILY 90 days metformin 500 mg PO DAILY multivitamin 1 tab PO DAILY pantoprazole 40 mg PO DAILY 90 days simvastatin 10 mg PO BEDTIME 30 days spironolactone 25 mg PO DAILY 90 days tirzepatide 15 mg (0.5 mL) subcut QWEEK HPI Comments Details: 43-yr-old female presents for f/u visit. Pt reports she continues to have intermittent episodes of BLE L > R, which can last all day but the intensity of the numbness varies. It can feel like a stripe of numbness form the left hip/buttock through the foot. This seems to be worse when she has her menstrual cycle. She can also have sacral numbness and discomfort if she sits too long on something hard. She continues to have BLE leg cramps, more at rest and worse at night. She is noticing BLE R > L, swelling, distal coldness, and reports poor distal pulses for some time. Denies leg cramps upon ambulation, rather walking usually helps her leg cramps. She can feel the ground when she walks. No weakness. She is prone to wake up with both arms feeling numb, and then has residual numbness in the arms. May have tingling in her wrists if she holds her phone for a long time. 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 Denies weakness. She states she probably does not drink as much fluid as she should. After review of her labs which showed mildly low Alk Phos, elevated Vitamin B1 and B6 levels- pt denies taking any specific B1/B6 supplements, but gandhi shelp her MVI. She has [facility] has a [facility] amt of B vitamins. She has not noticed if the Nervive has helped or not. She has not heard from ENT to discuss alternate tx options for her mild SERVANDO, snoring, nasal congestion, h/o frequent sinus infections. She does usually sleeps on her side. Previous work-up: 09/23/2023, HST: AHI 5.0 per hour, O2 chris 83%, SpO2 less than 90% x's 0.4 minutes of study, under 88% x's 1.1 minutes 10/23/23, BLE EMG/NCS: -There is electrodiagnostic evidence for distal sensorimotor polyneuropathy, primarily axonal features. -There is no electrodiagnostic evidence for lumbosacral plexopathy or lumbar radiculopathy. Possibly slightly progressed since last year. 11/15/23 01/01/24 02/05/24 11:56 14:02 09:32 WBC 9.8 RBC 4.60 Hgb 13.9 Hct 39.6 Plt Count 311 ESR 8 Sodium 139 Potassium 4.2 Chloride 103 Carbon Dioxide 26 Anion Gap 14 BUN 16 Creatinine 0.77 Hemoglobin A1c % 4.7 Calcium 9.9 D Magnesium 1.9 Iron 111 TIBC 285 % Saturation 39 Unsat Iron Binding 174 Ferritin 160 Total Bilirubin 1.0 AST 14 ALT 14 Alkaline Phosphatase 38 L Total Creatine Kinase 31 C-React Prot High Sens 0.8 Total Protein 7.5 Albumin 4.4 Vitamin B1 50 H Vitamin B2 31.5 Nicotinic Acid <20 Nicotinamide 23 Pantothenic Acid 108 Vitamin B6 70.6 H Vitamin B12 852 25-OH Vitamin D Total 66.7 Rheumatoid Factor < 13.0 BOZENA Screen NEGATIVE [facility] Medical History Paresthesias Hypersomnia Snoring History of GI bleed Nonischemic cardiomyopathy PCOS (polycystic ovarian syndrome) Congestive heart failure Obesity (BMI 30-39.9) Ocular migraine Hypertension Hypercholesterolemia GERD (gastroesophageal reflux disease) Family History Mother No problems noted. Father FH: prostate cancer Maternal Grandfather Colon cancer Social History Housing: House Alcohol intake: current Alcohol intake frequency: a few times a month Comment: 2 days weekend 1 glass Patient Tobacco Use Status: Never used Tobacco e-Cigarette/Vaping Use: Never Used Second Hand Smoke Exposure: No service: No Current occupational status: employed Current occupational exposures/hazards: No Cognitive needs: No Hearing needs: No Vision needs: No Female Reproductive History Menstrual Age of Menarche: 15 Physical Exam Vital Signs: BMI result Body Mass Index 25.8 Const General: cooperative and no acute distress Orientation/consciousness: patient oriented x3 Resp Effort & Inspection: normal respiratory effort and able to speak in complete sentences Neuro General: patient oriented x3 and deep tendon reflexes 2+ bilaterally Cranial nerves: Yes CN's II-XII intact bilaterally Cognition (Neuro): normal cognition Gait exam (Neuro): Normal gait present Motor exam (neuro): 5/5 motor strength present throughout Extrem Other: BLE R > L distal non-pitting edema. BLE feet are cold to the touch, ankles are warm to the touch. Unable to appreciate BLE pedal pulses. No skin lesions, discolorations. RLE rests in mild varus- pt had not noticed. 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 Recheck vit B1/B6. Check zinc. Magnesium 400 mg q.h.s. for leg cramps. For now, continue OTC nervive nerve relief supplement, alpha lipoic acid- if Vit B6 level still elevated, will hold. Will request vascular consult d/t assymetric peripheral swelling, coldness, decreased PP. Will refer for PT eval & Tx. For BUE paresthesias: Try OTC BUE carpal tunnel splints while sleeping. If ineffective, consider BUE EMG/NCS. For mild SERVANDO: HST were consistent with very mild obstructive sleep apnea with transient nocturnal hypoxemia. Patient has a history of nasal and sinus congestion, remote history of frequent sinus infections. Will f/u on referral for ENT consult for alternate treatments for sleep apnea. In the meantime, avoid sleeping in supine position. Follow up in 6 months or sooner as needed. Orders: Orders Vitamin B1 Today G62.0 - Drug-induced polyneuropathy, R20.2 - Paresthesia of skin, R25.2 - Cramp and spasm, T45.2X5A - Adverse effect of vitamins, initial encounter Vitamin B6 Today G62.0 - Drug-induced polyneuropathy, R20.2 - Paresthesia of skin, R25.2 - Cramp and spasm, T45.2X5A - Adverse effect of vitamins, initial encounter Zinc Today G62.0 - Drug-induced polyneuropathy, R20.2 - Paresthesia of skin, R25.2 - Cramp and spasm, T45.2X5A - Adverse effect of vitamins, initial encounter PT Evaluation and Treatment Today G62.9 - Polyneuropathy, unspecified, R20.0 - Anesthesia of skin, R20.2 - Paresthesia of skin Referrals Vascular Surgery Referral G62.9 - Polyneuropathy, unspecified, M79.89 - Other specified soft tissue disorders, R20.0 - Anesthesia of skin Coding Level of Care Code Est Pt Level 4 (32955) Diagnoses Mild obstructive sleep apnea G47.33 Paresthesias R20.2 Leg cramps R25.2 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
== END 2024-05-19 14:25 | disposition home or self-care (01) ==
PROVIDERS: PCP Internal Medicine; Visit Provider Nurse Practitioner Family
DX: G47.33 Obstructive sleep apnea (adult) (pediatric) (principal); R20.2 Paresthesia of skin; R25.2 Cramp and spasm; G62.0 Drug-induced polyneuropathy; T45.2X5A Adverse effect of vitamins, initial encounter; R20.0 Anesthesia of skin; M79.89 Other specified soft tissue disorders
CPT/HCPCS: 99214

== ENCOUNTER → 2024-05-19 13:19 | Outpatient (BNVA) | payer OTHER, SELFPAY | PROVIDERS: PCP Internal Medicine; Visit Provider Nurse Practitioner Family ==

== ENCOUNTER 2024-06-16 11:17 | Outpatient (AMB) | payer OTHER, SELFPAY ==
--- NOTE | 2024-06-16 11:28 | A.OFFVIS_ITS ---
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 Also states that she has bilateral LE cramping and occasional swelling. STates that LE cramping is worse at rest or at night. Does get occasional swelling in LE & UE. Pt states she does get foot numbness. Left LE is worse than the Right LE. 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 Complaints include swelling of lower extremities, cramping, fatigue, and heaviness of the lower extremities. It has been affecting their daily activities including working and standing. Swelling is noted more so in the right lower extremity. Patient denies any previous venous surgery or injections. She denies any control pills, she is a nonsmoker and her diabetes is controlled with Metformin. She has recently lost over 75 lb. She states the nightly gabapentin has been helping with some of the leg cramps she is getting at night. Patient denies any history of DVT/ PE. Patient denies any history of phlebitis. Trial of compression includes - compression stockings during flying (has had increased flights) They now present for vascular evaluation regarding their varicose veins/lower extremity swelling. [facility] Medical History Paresthesias Hypersomnia Snoring History of GI bleed Nonischemic cardiomyopathy PCOS (polycystic ovarian syndrome) Congestive heart failure Obesity (BMI 30-39.9) Ocular migraine Hypertension Hypercholesterolemia GERD (gastroesophageal reflux disease) Family History Mother No problems noted. Father FH: prostate cancer Maternal Grandfather Colon cancer Social History Housing: House Alcohol intake: current Alcohol intake frequency: a few times a month Comment: 2 days weekend 1 glass Patient Tobacco Use Status: Never used Tobacco e-Cigarette/Vaping Use: Never Used Second Hand Smoke Exposure: No service: No Current occupational status: employed Current occupational exposures/hazards: No Cognitive needs: No Hearing needs: No Vision needs: No Female Reproductive History Menstrual Age of Menarche: 15 Review of Systems Const Reports as per HPI and Denies weakness ENT Reports Normal hearing present and Denies dizziness Card Reports as per HPI, Denies chest pain, Denies chest pain at rest, Denies chest pain with activity, Denies dyspnea and Denies dyspnea on exertion Resp Reports as per HPI, Denies cough, Denies dyspnea and Denies dyspnea on exertion GI Reports as per HPI, Denies abdominal pain, Denies nausea and Denies vomiting Musc Denies numbness Skin/Breast Reports as per HPI, Denies erythema and Denies wounds Neuro Reports Normal hearing present, Denies dizziness, Denies numbness, Denies Sensory deficit (Neuro) and Denies weakness Psych Reports no additional complaints Endo Reports no additional complaints Physical Exam Vital Signs: BMI result Body Mass Index 25.8 Const General: healthy appearing and no acute distress Orientation/consciousness: patient oriented x3 HEENT Head: Yes normal to inspection Ears: hearing grossly normal bilaterally Mouth: Normal oral and palatal mucosa present Resp Effort & Inspection: normal respiratory effort and able to speak in complete sentences Auscultation: clear to auscultation bilaterally Cardio Jugular venous distension: no JVD Rate: regular rate Rhythm: regular rhythm Heart sounds: S1 normal heart sound present and S2 normal heart sound present Bruits: no abdominal aortic bruits, no carotid bruits, no femoral bruits and no renal bruits Peripheral pulses: Peripheral pulses 2+ throughout GI Inspection: Yes normal to inspection Palpation (GI): No Abdominal aortic bruit present Skin General skin exam: no rashes or lesions noted Wounds: no wounds Hair: normal Neuro General: patient oriented x3 Cranial nerves: Yes Normal hearing present Cognition (Neuro): normal cognition Gait exam (Neuro): Normal gait present Motor exam (neuro): 5/5 motor strength present throughout Sensory Exam: No Sensory deficit (Neuro) Extrem Other: Right lower extremity: Trace peripheral edema noted. Foot cool to the touch but palpable DP pulses. No varicosities noted. Left lower extremity: No peripheral edema noted. Foot cool to the touch but palpable DP pulses. No varicosities noted. CEAP: C - 3 E - primary A - superficial P - reflux General: Yes normal to inspection, Yes full ROM, Yes capillary refill normal and Yes normal gait Assessment & Plan Assessment & Plan (1) Swelling of lower extremity: Code(s): M79.89 - Other specified soft tissue disorders Category: Medical Plan: Adina is presenting today as a consult from her PCP for ongoing and intermittent cramping and pain in her lower extremities as well as swelling. She states the swelling occurs more in her right lower extremity. 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 She uses compression stockings intermittently, mostly when she is flying. In short, the patient has evidence of venous insufficiency. I have discussed the pathophysiology with the patient. In addition I have provided informational material regarding venous disease to the patient. We have discussed conservative measures including compression, elevation, and exercise. We discussed the use of compression stockings daily. I have taken the liberty of ordering venous insufficiency testing with the patient. They will follow up with me after testing. The patient had an opportunity to ask questions regarding the treatment plan. All questions were answered. No major barriers to understanding were identified. The patient expressed understanding and agreement with the above treatment plan. The patient is aware they should contact our office by phone for worsening of the current condition or the appearance of new symptoms. Thank you for allowing me to participate in the vascular care of this patient. If you have any questions or concerns regarding the treatment for the above condition please do not hesitate to contact me. The office telephone contact is [phone]. This note is constructed using voice recognition software. While every effort has been made to ensure accuracy, president and ceo errors may have been included. Thank you for allowing me to participate in the care of your patient. Yours sincerely, ISABELLA Rodney Orders: Orders US venous duplex LE BI 1 Week M79.89 - Other specified soft tissue disorders Coding Level of Care Code New Pt New Pt Level 4 (41670) Patient Type New Diagnoses Swelling of lower extremity M79.89
[2024-06-16 11:29] VITALS: BMI 25.8
== END 2024-06-16 11:46 | disposition home or self-care (01) ==
LOC: HO.HVS 11:18
PROVIDERS: PCP Internal Medicine; Visit Provider Physician Assistant Surgical
DX: M79.89 Other specified soft tissue disorders (principal)
CPT/HCPCS: 99204

== ENCOUNTER 2024-07-13 10:18 | Outpatient (REF) | payer OTHER, SELFPAY | END 2024-07-13 10:19 | disposition home or self-care (01) | LOC: HO.US 10:18 | PROVIDERS: PCP Internal Medicine; Visit Provider Physician Assistant Surgical | DX: R60.0 Localized edema (principal) | CPT/HCPCS: 93970 ==

== ENCOUNTER → 2024-07-13 10:20 | Outpatient (BNV) | payer OTHER, SELFPAY | PROVIDERS: PCP Internal Medicine; Visit Provider Radiology Diagnostic Radiology | DX: R60.0 Localized edema (principal); M79.89 Other specified soft tissue disorders | CPT/HCPCS: 93970 ==

== ENCOUNTER 2024-07-21 14:47 | Outpatient (AMB) | payer OTHER, SELFPAY ==
[2024-07-21 14:48] VITALS: BMI 25.8
--- NOTE | 2024-07-21 14:48 | A.OFFVIS_ITS ---
Vital Signs 07/21/24 14:48 Height 5 ft 9 in Weight 175 lb BMI 25.8 Intake Visit Reasons: Follow Up 07/13 [facility] Intake Note: follow up [facility] 07/13/24, for Left LE worse than Right LE cramping at rest, worse at night. Does get swelling in bilateral E and UE. Foot numbness as well Accompanied by: Self / Same As Patient Allergies No Known Allergies Allergy (Verified 07/21/24 14:52) HPI HPI Follow Up 07/13 [facility]: Details: Adina, a pleasant 44 yo female patient, is presenting today for a follow to [facility] on 07/13/24. She continues with bilateral lower extremity swelling and cramping, slightly worse in the left. She does continue to wear compression stockings daily. She is elevating her legs whenever possible. [facility] Medical History Paresthesias Hypersomnia Snoring History of GI bleed Nonischemic cardiomyopathy PCOS (polycystic ovarian syndrome) Congestive heart failure Obesity (BMI 30-39.9) Ocular migraine Hypertension Hypercholesterolemia GERD (gastroesophageal reflux disease) Family History Mother No problems noted. Father FH: prostate cancer Maternal Grandfather Colon cancer Social History Housing: House Alcohol intake: current Alcohol intake frequency: a few times a month Comment: 2 days weekend 1 glass Patient Tobacco Use Status: Never used Tobacco e-Cigarette/Vaping Use: Never Used Second Hand Smoke Exposure: No service: No Current occupational status: employed Current occupational exposures/hazards: No Cognitive needs: No Hearing needs: No Vision needs: No Female Reproductive History Menstrual Age of Menarche: 15 Review of Systems Const Reports as per HPI and Denies weakness ENT Reports Normal hearing present and Denies dizziness Card Reports as per HPI, Denies chest pain, Denies chest pain at rest, Denies chest pain with activity, Denies dyspnea and Denies dyspnea on exertion Resp Reports as per HPI, Denies cough, Denies dyspnea and Denies dyspnea on exertion GI Reports as per HPI, Denies abdominal pain, Denies nausea and Denies vomiting Musc Denies numbness Skin/Breast Reports as per HPI, Denies erythema and Denies wounds Neuro Reports Normal hearing present, Denies dizziness, Denies numbness, Denies Sensory deficit (Neuro) and Denies weakness Psych Reports no additional complaints Endo Reports no additional complaints Physical Exam Vital Signs: BMI result Body Mass Index 25.8 Const General: healthy appearing and no acute distress Orientation/consciousness: patient oriented x3 HEENT Head: Yes normal to inspection Ears: hearing grossly normal bilaterally Mouth: Normal oral and palatal mucosa present Resp Effort & Inspection: normal respiratory effort and able to speak in complete sentences Auscultation: clear to auscultation bilaterally Cardio Jugular venous distension: no JVD Rate: regular rate Rhythm: regular rhythm Heart sounds: S1 normal heart sound present and S2 normal heart sound present Bruits: no abdominal aortic bruits, no carotid bruits, no femoral bruits and no renal bruits Peripheral pulses: Peripheral pulses 2+ throughout GI Inspection: Yes normal to inspection Palpation (GI): No Abdominal aortic bruit present Skin General skin exam: no rashes or lesions noted Wounds: no wounds Hair: normal Neuro General: patient oriented x3 Cranial nerves: Yes Normal hearing present Cognition (Neuro): normal cognition Gait exam (Neuro): Normal gait present Motor exam (neuro): 5/5 motor strength present throughout Sensory Exam: No Sensory deficit (Neuro) Extrem Other: Right lower extremity: Trace peripheral edema noted. Foot cool to the touch but palpable DP pulses. No varicosities noted. Left lower extremity: Trace peripheral edema noted. Foot cool to the touch but palpable DP pulses. No varicosities noted. General: Yes normal to inspection, Yes full ROM, Yes capillary refill normal and Yes normal gait Results Reviewed Results Reviewed: Brief summary of venous insufficiency testing is as follows: right great saphenous vein: negative right small saphenous vein: negative right accessory vein: none present left great saphenous vein: venous insufficiency left small saphenous vein: negative left accessory vein: none present Please note there is no evidence of any venous aneurysms or significant tortuosity Assessment & Plan Assessment & Plan (1) Varicose veins of both lower extremities with inflammation: Code(s): I83.11 - Varicose veins of right lower extremity with inflammation; I83.12 - Varicose veins of left lower extremity with inflammation Category: Medical Plan Adina is presenting today for a follow up to ultrasound. She continues with left lower extremity swelling and pain, worse than right. This patient has varicose veins with inflammation. They continue to be a source of discomfort for the patient. The patient has tried conservative treatment with compression, leg elevation and exercise program for over 3 months time. They have been compliant with all treatment. This has provided minimal relief for the patient. I do not anticipate this course of treatment will alter the underlying etiology. The patient has been scheduled for lower extremity venous treatment inclusive of left radiofrequency ablation due to a possible allergy to adhesives, so we will not be performing a Venaseal. Risks, benefits, and complications of this procedure has been discussed in detail with the patient including but not limited to bleeding, infection, and the development of a DVT. The patient has demonstrated a clear understanding and has consented. We will schedule the patient as soon as possible. Thank you for allowing us to participate in this patient's care. If there are any questions or concerns please do not hesitate to contact us. Coding Level of Care Code Est Pt Level 4 (40904) Diagnoses Varicose veins of both lower extremities with inflammation I83.11; I83.12 Comment review of US
--- OUTSIDE RECORDS SUMMARY | 2024-07-22 22:12 | XMS_ITS | Patient Health Record ---
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 Name Role Phone Abhijeet Izabeladarsh Primary Care Provider Unavailabl e Black, Petrona Unavailable [phone] Allergies Allergen (clinical drug ingredient) Drug/Non Drug Allergy documented on EMR Reaction Allergy Type Onset Date Status Adhesive redness/itching Allergy Acti ve Reason For Referral No Information Medications Medication SIG (Take, Route, Frequency, Duration) Notes Start Date End Date Status metFORMIN HCl 500 MG 1 tablet with a rafaela l Orally Once a day for 30 day(s) Active Multivitamin - 1 tablet Orally Once a day for 30 day(s) Active Pantoprazole Sodium 40 MG 1 tablet Orall y Once a day for 30 day(s) Active Simvastatin 5 MG 1 tablet in the even ing Orally Once a day for 30 day(s) Active Spironolactone 25 MG 1 tablet Orally for 30 day(s) Active Cephalexin 500 MG 1 capsule Orally twi ce a day for 10 days 02/02/2022 Active Biotin 1 MG as directed Orally Active Carvedilol 25 MG 1 tablet with food O rally Twice a day for 30 day(s) Active Cetirizine HCl 10 MG 1 tablet Orally Onc e a day for 30 day(s) Active Flonase Active Lactobacillus Active Losartan Potassium 100 MG 1 tablet Orall y Once a day for 30 day(s) Active Social History Tobacco Use: Social History Observation Description Date Details (start date - stop date) Never Smoker NA - NA Tobacco Use/Smoking Question Answer Notes Are you a: nonsmoker Alcohol Screen Question Answer Notes Did you have a drink contain ing alcohol in the past year? Yes How often did you have a dri nk containing alcohol in the past year? 2 to 4 times a month (2 points) Points 2 Interpretation Negative Tobacco use other than smoking: Question Answer Notes Are you an other tobacco user? No Problems Problem Type SNOMED Code ICD Code Onset Dates Problem Status W/U Status Risk Notes Problem Ulcer of toe (782637651) Non-pressure chronic ulcer of other part of right foot limited to breakdown of skin (L97.511) Active confirmed Problem Acquired hammer toe of right foot (7327737107897 105) Other hammer toe(s) (acquired), right foot (M20.41) Active confirmed Problem Acquired hammer toe of left foot ([id number] 103) Other hammer toe(s) (acquired), left foot (M20.42) Active confirmed Plan Of Treatment Pending Test Test Name Order Date 54606- Debride <25 sq cm 02/23/2022 48006 I&D ABSCESS- SIMPLE,SINGLE 022 Insurance Providers Payer Name Payer Address Payer Phone Subscriber Number Group Number Insured Name Patient Relationship to Insured Coverage Start Date Coverage End Date [facility] [address] [place] [address] [id number] Adina Garnett Self - patient is the insured Medical (General) History Medical History History ICD Code Congestive heart failure Reflux ( GERD) Hypercholesterolemia Hypertension Cardiomyopathy PCOS type II diabetes Anemia covid-19 Cholesterol Back,Hip,and Knee pain Chicken pox blood clots Surgical History Surgery Date(Month/Year)
== END 2024-07-21 15:13 | disposition home or self-care (01) ==
PROVIDERS: PCP Internal Medicine; Visit Provider Physician Assistant Surgical
DX: I83.11 Varicose veins of right lower extremity with inflammation (principal); I83.12 Varicose veins of left lower extremity with inflammation
CPT/HCPCS: 99214

== ENCOUNTER → 2024-07-21 14:47 | Outpatient (BNVA) | payer OTHER, SELFPAY | PROVIDERS: PCP Internal Medicine; Visit Provider Physician Assistant Surgical ==

== ENCOUNTER 2024-07-21 15:24 | Outpatient (REF) | payer OTHER, SELFPAY ==
[2024-07-24 13:27] LABS: Zinc 66 mcg/dL (60-130)
[2024-07-26 11:53] LABS: Vitamin B1 30 nmol/L (8-30)
[2024-07-31 05:44] LABS: Vitamin B6 39.3 ng/mL (2.1-21.7)
== END 2024-07-21 15:25 | disposition home or self-care (01) ==
LOC: HO.LAB 15:24
PROVIDERS: PCP Internal Medicine; Visit Provider Nurse Practitioner Family
DX: R25.2 Cramp and spasm (principal); R20.2 Paresthesia of skin; G62.0 Drug-induced polyneuropathy; T45.2X5A Adverse effect of vitamins, initial encounter
CPT/HCPCS: 36415; 84207; 84425; 84630

== ENCOUNTER 2024-08-13 10:47 | Outpatient (AMB) | payer OTHER, SELFPAY ==
--- NOTE | 2024-08-13 10:53 | MHC.PC.OV ---
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 It was noted that last May, the Hemoglobin A1c was 11+, indicating some improvement. Additionally, the patient has a significant Vitamin D deficiency with a level of 9, and hypothyroidism is noted with a TSH level of 7.39. The patient is monitored by a kidney specialist for Chronic Kidney Disease, with a reported BUN level of 42, indicating hydration issues. The patient reports episodes of coughing, forcing it occasionally, and recently experienced epistaxis due to picking the nose, exacerbated by dry nasal passageways. There was a recent weight loss of 10 pounds, noteworthy in context to the Chronic Kidney Disease diet. There is high cholesterol with a level of 139, requiring reassessment. Previous interventions include thyroid and Vitamin D supplementation. [facility] Medical History Paresthesias Hypersomnia Snoring History of GI bleed Nonischemic cardiomyopathy PCOS (polycystic ovarian syndrome) Congestive heart failure Obesity (BMI 30-39.9) Ocular migraine Hypertension Hypercholesterolemia GERD (gastroesophageal reflux disease) Family History Mother No problems noted. Father FH: prostate cancer Maternal Grandfather Colon cancer Social History Housing: House Alcohol intake: current Alcohol intake frequency: a few times a month Comment: 2 days weekend 1 glass Patient Tobacco Use Status: Never used Tobacco e-Cigarette/Vaping Use: Never Used Second Hand Smoke Exposure: No service: No Current occupational status: employed Current occupational exposures/hazards: No Cognitive needs: No Hearing needs: No Vision needs: No Female Reproductive History Menstrual Age of Menarche: 15 Questionnaire PHQ-9 Over the last 2 weeks, how often have you been bothered by any of the following problems? 1. Little interest or pleasure in doing things: not at all 2. Feeling down, depressed, or hopeless: not at all 3. Trouble falling or staying asleep, or sleeping too much: not at all 4. Feeling tired or having little energy: not at all 5. Poor appetite or overeating: not at all 6. Feeling bad about yourself - or that you are a failure or have let yourself or your family down: not at all 7. Trouble concentrating on things, such as reading the newspaper or watching television: not at all 8. Moving or speaking so slowly that other people could have noticed. Or the opposite - being so fidgety or restless that you have been moving around a lot more than usual: not at all 9. Thoughts that you would be better off or of hurting yourself in some way: not at all Total score: 0 Depression Screening Interpretation: Negative Depression Screening Done: Yes Source: Developed by Drs. Dandy Vieyra, Marianne Rascon, Lance Gtz and colleagues, with an educational selin from [employer]. Thrive Questionnaire Date Thrive assessed: 08/13/24 I am a: Parent/Caregiver What is your living situation today?: I have a steady place to live Within the past 12 months, did the food you bought not last and you didn't have the money to get more?: Never true Within the past 12 months, did you worry whether your food would run out before you got money to buy more?: Never true Do you have trouble paying for medicines?: No Do you have trouble getting transportation to medical appointments?: No Do you have trouble paying your heating and electricity bill?: No Do you have trouble taking care of your child, family member or friend?: No Do you have trouble with day-to-day activities such as bathing, preparing meals, shopping, managing finances, etc.?: No Are you currently unemployed and looking for a job?: No Are you interested in more education?: No THRIVE Score: 0 SELENA-7 AMB Questionnaire SELENA-7 Date SELENA - 7 assessed: 08/13/24 Feeling nervous, anxious, or on edge: 0 = Not at all Not being able to stop or control worryin = Not at all Worrying too much about different things: 0 = Not at all Trouble relaxin = Not at all Being so restless that it is hard to sit still: 0 = Not at all Becoming easily annoyed or irritable: 0 = Not at all Feeling afraid as if something awful might happen: 0 = Not at all Total SELENA-7 score (0-4 normal; 5-9 mild; 10-14 moderate; 15-21 severe): 0 Source: Developed by Drs. Dandy Vieyra, Marianne Rascon, Lance Gtz and colleagues, with an educational selin from [employer]. SELENA-7 Assessment Billing SELENA-7 Assessment Tool: SELENA-7 Assessment 72513 Physical exam (Primary Care) Vital Signs: Last Vital Signs Pulse 95 08/13/24 11:15 BP 114/70 08/13/24 11:15 Pulse Ox 97 08/13/24 11:15 BMI result Body Mass Index 25.3 Tobacco/Smoking Status: Tobacco use Status Tobacco use date assessed 08/13/24 08/13/24 10:58 Patient Tobacco Use Status Never used Tobacco 08/13/24 10:58 e-Cigarette/Vaping Use Never Used 08/13/24 10:58 PHQ-9: PHQ-9 Score PHQ-9: Total score 0 08/13/24 11:42 Depression Screening Interpretation: Negative Thrive Assessment: Date of Thrive Assessment Date Thrive assessed 08/13/24 08/13/24 10:58 Const General: alert; No acute distress Eyes Conjunctivae: conjunctivae normal Resp Auscultation: clear to auscultation bilaterally Cardio Rate: regular rate Rhythm: regular rhythm GI Inspection: Yes normal to inspection Extrem General: Yes normal to inspection and No edema Coding Level of Care Code Est Pt Level 4 (10078) Complex EM visit Add On G2211 Diagnoses Type 2 diabetes mellitus with hyperglycemia E11.65 Nonischemic cardiomyopathy I42.8 Essential hypertension I10 Hypertension type: essential hypertension Hypercholesterolemia E78.00 Gastroesophageal reflux disease without esophagitis K21.9 Esophagitis presence: without esophagitis Peripheral neuropathy G62.9 Additional Codes SELENA-7 Assessment Billing - SELENA-7 Assessment Tool: SELENA-7 Assessment [id number] ([id number]) Assessment & Plan Assessment & Plan (1) Type 2 diabetes mellitus with hyperglycemia: Code(s): E1165 - Type 2 diabetes mellitus with hyperglycemia Category: Medical (2) Nonischemic cardiomyopathy: Comment: January 2013 EF 61%, April 2018 EF 59% June 2020 echocardiogram ejection fraction 53% normal left ventricular activity October 2022. Normal LV systolic function with very mild asymmetric septal hypertrophy with grade 1 diastolic dysfunction 2. Normal cardiac valvular Doppler 3. No gross pericardial effusion Code(s): I42.8 - Other cardiomyopathies Category: Medical (3) Hypertension: Code(s): I10 - Essential (primary) hypertension Category: Medical Qualifiers: Hypertension type: essential hypertension Qualified Code(s): I10 - Essential (primary) hypertension (4) Hypercholesterolemia: Code(s): E78.00 - Pure hypercholesterolemia, unspecified Category: Medical (5) GERD (gastroesophageal reflux disease): Code(s): K21.9 - Gastro-esophageal reflux disease without esophagitis Category: Medical Qualifiers: Esophagitis presence: without esophagitis Qualified Code(s): K21.9 - Gastro-esophageal reflux disease without esophagitis (6) Peripheral neuropathy: Code(s): G62.9 - Polyneuropathy, unspecified Category: Medical Plan - Increase monitoring and management of Type 2 Diabetes Mellitus; consider alterations in diabetic medication if necessary. - Prescribe high-dose Vitamin D supplements, 50,000 units weekly for three months. - Adjust management of hypothyroidism based on recent TSH levels; monitor response closely. - For cough, consider the use of Delsym as needed for symptom relief. - Advise against nasal picking and provide saline nasal spray to moisturize nasal passages; consider an ENT referral if epistaxis persists. - Recommend increased fluid intake to address hydration as part of Chronic Kidney Disease management. - Plan to reassess cholesterol levels; ensure fasting before the next lab draw. - Review and update vaccinations and health maintenance as indicated. Patient was informed and verbally consented to the use of an ambient scribe for clinic note documentation during this visit. Orders: Orders Comprehensive Met. Panel 3 Months - Type 2 diabetes mellitus with hyperglycemia Free T4 (Free Thyroxine) 3 Months E11.65 - Type 2 diabetes mellitus with hyperglycemia Creatinine Urine 3 Months E11. - Type 2 diabetes mellitus with hyperglycemia Lipid Panel 3 Months E11. - Type 2 diabetes mellitus with hyperglycemia, E78.00 - Pure hypercholesterolemia, unspecified Vitamin B12 and Folate 3 Months E11. - Type 2 diabetes mellitus with hyperglycemia Complete Blood Count Auto Diff 3 Months . - Type 2 diabetes mellitus with hyperglycemia Hemoglobin A1c 3 Months E11. - Type 2 diabetes mellitus with hyperglycemia Microalbumin, Random (w Creat) 3 Months . - Type 2 diabetes mellitus with hyperglycemia Thyroid Stimulating Hormone 3 Months . - Type 2 diabetes mellitus with hyperglycemia Vitamin D 25-OH Total 3 Months E11. - Type 2 diabetes mellitus with hyperglycemia Vitamin B6 3 Months G62.9 - Polyneuropathy, unspecified Medications: Changed From losartan 50 mg (1/2 x 100 mg) PO DAILY 90 days 45 tabs 3RF - Type 2 diabetes mellitus with hyperglycemia To losartan 25 mg PO DAILY 90 tabs 3RF 90 days - Type 2 diabetes mellitus with hyperglycemia
[2024-08-13 11:15] VITALS: BP 114/70; PULSE 95; O2SAT 97; BMI 25.3
--- OUTSIDE RECORDS SUMMARY | 2024-08-13 11:24 | XMS_ITS | Patient Health Record ---
Author Organization [facility] Address [address] [place] [address] Care Team Providers Care Supervisor Cytology Name Role Phone Abhijeet Izabeladarsh Primary Care Provider Unavailabl e Black, Petrona Unavailable [phone] Allergies Allergen (clinical drug ingredient) Drug/Non Drug [...] Status Risk Notes Problem Ulcer of toe (902645177) Non-pressure chronic ulcer of other part of right foot limited to breakdown of skin (L97.511) Active confirmed Problem Acquired hammer toe of right foot ([id number] 105) Other hammer toe(s) (acquired), right foot (M20.41) Active confirmed Problem Acquired hammer toe of left foot (0458048838831 103) Other hammer toe(s) (acquired), left foot (M20.42) Active confirmed Plan Of Treatment Pending Test Test Name Order Date 43894- Debride <25 sq cm 02/23/2022 51104 I&D ABSCESS- SIMPLE,SINGLE 022 Insurance Providers Payer Name Payer Address Payer Phone Subscriber Number Group Number Insured Name Patient Relationship to Insured Coverage Start Date Coverage End Date [facility] [address] [place] [address] [phone] [id number] Adina Garnett Self - patient is the insured Medical (General) History Medical History History ICD Code Congestive heart failure Reflux ( GERD) Hypercholesterolemia Hypertension Cardiomyopathy PCOS type II diabetes Anemia covid-19 Cholesterol Back,Hip,and Knee pain Chicken pox blood clots Surgical History Surgery Date(Month/Year)
== END 2024-08-13 11:59 | disposition home or self-care (01) ==
PROVIDERS: PCP Internal Medicine; Visit Provider Internal Medicine
DX: E11.65 Type 2 diabetes mellitus with hyperglycemia (principal); I42.8 Other cardiomyopathies; I10 Essential (primary) hypertension; E78.00 Pure hypercholesterolemia, unspecified; K21.9 Gastro-esophageal reflux disease without esophagitis; G62.9 Polyneuropathy, unspecified

== ENCOUNTER → 2024-08-13 10:47 | Outpatient (BNVA) | payer OTHER, SELFPAY | PROVIDERS: PCP Internal Medicine; Visit Provider Internal Medicine | DX: E11.65 Type 2 diabetes mellitus with hyperglycemia (principal); I42.8 Other cardiomyopathies; I10 Essential (primary) hypertension; E78.00 Pure hypercholesterolemia, unspecified; K21.9 Gastro-esophageal reflux disease without esophagitis; G62.9 Polyneuropathy, unspecified | CPT/HCPCS: 96127 ==

== ENCOUNTER 2024-08-21 15:46 | Outpatient (REF) | payer OTHER, SELFPAY | END 2024-08-21 15:47 | disposition home or self-care (01) | LOC: HO.MAMMO 15:46 | PROVIDERS: PCP Internal Medicine; Visit Provider Internal Medicine | DX: Z12.31 Encounter for screening mammogram for malignant neoplasm of breast (principal) | CPT/HCPCS: 77063; 77067 ==

== ENCOUNTER → 2024-08-21 16:00 | Outpatient (BNV) | payer OTHER, SELFPAY | PROVIDERS: PCP Internal Medicine; Visit Provider Internal Medicine | DX: Z12.31 Encounter for screening mammogram for malignant neoplasm of breast (principal) | CPT/HCPCS: 77063; 77067 ==

== ENCOUNTER → 2024-08-31 12:49 | Outpatient (REF) | payer OTHER, SELFPAY ==
--- NOTE | 2024-08-31 12:52 | CA_ITS ---
Transthoracic Echocardiogram Patient (Last, First, Middle): Adina Lees M Gender: Female Date of : 1980 Age: 44 Procedure Date: 08/31/2024 Procedure Type: Transthoracic Echocardiogram Location: OP Height: 175.26 cm Weight: 76.2 kg BSA: 1.92 m2 Heart Rate: bpm BP: 122 / 70 mmHg Parcel Contractor: Referring MD: Gene Funk MD Nursery Helper: Gene Funk MD Symptoms: I42.8 - Other cardiomyopathies Study Quality: Fair ECG Rhythm: Sinus Conclusions: - 1. Normal LV ejection fraction 55-60% with impaired relaxation filling pattern 2. Mildly dilated left atrium 3. Normal cardiac valvular Dopplers 4. Normal RV systolic pressure 5. No gross pericardial effusion Findings Left Ventricle Normal left ventricular size, thickness, and systolic function. The visually estimated ejection fraction is between 55-60%. Spectral Doppler is indicative of an impaired relaxation filling pattern. E/E prime ratio is between 8 and 15 consistent with indeterminate filling pressures. Right Ventricle Normal right ventricular cavity size and systolic function. Atria The left atrium is mildly dilated. Interatrial shunt cannot be excluded. The right atrium is normal in size. Aortic Valve The aortic valve structure and function is likely normal. There is no aortic valve stenosis. There is no aortic valve regurgitation. Mitral Valve Normal mitral valve structure and function. There is trace mitral valve regurgitation. There is no mitral valve stenosis. Pulmonic Valve The pulmonic valve was not well visualized. Tricuspid Valve Likely normal tricuspid valve structure and function. There is trace tricuspid valve regurgitation. The right ventricular systolic pressure is normal. The right ventricular systolic pressure is 20 mmHg. Normal right atrial pressure. There is no evidence of pulmonary hypertension. Great Vessels All visible segments of the aorta are normal in size. The pulmonary artery was not well visualized. There is no dilatation of the ascending aorta measuring 3.00 cm. Venous The inferior vena cava is normal in size. Pericardium/Pleural There is no evidence of pericardial effusion. Prior Study Comparison No significant change compared to prior study dated: 09/27/2022. Measurements 2D Linear Measurements IVSd: 0.98 0.6-0.9/0.6-1.0 cm LVIDd: 3.74 3.9-5.3/4.2-5.9 cm LVIDd Index: 1.95 2.4-3.2/2.2-3.1 cm/m2 LVIDs: 2.42 2.0-3.6 cm LVPWd: 0.94 0.7-1.1 cm Ao Root: 3.10 2.1-3.5 cm LA Diam: 3.40 2.7-3.8/3.0-4.0 cm LAIDs Index: 1.77 1.5-2.3 cm/m2 LV Mass: 133.87 67-162/88-224 g LV Mass Index: 69.72 43-95/49-115 g/m2 LVOT Diam: 2.30 3.0+(-)1.3 cm 2D Systolic Function EF 4C: 59.80 >55% EF 2C: 58.50 >55% EF BiP: 58.10 >55% Mitral Valve MV Pk E: 0.54 MV PK A: 0.85 MV Decel Time: 114.00 E/A: 0.60 E'Lateral: 11.50 E'Medial: 7.62 E/E' Med: 7.00 E/E' Lat: 4.70 PHT: 33.00 MVA PHT: 6.67 Decel [place]: 4.71 Aortic Valve AoV Pk Ayden: 1.05 AoV Pk Grad: 4.00 LVOT LVOT Pk Ayden: 0.79 LVOT Mn Ayden: 0.54 LVOT VTI: 0.17 LVOT Pk Grad: 3.00 LVOT Mn Grad: 1.00 LVOT Diam: 2.30 LVOT Area: 4.15 Diastolic Function MV Pk E: 0.54 MV Pk A: 0.85 E/A: 0.60 E'Medial: 7.62 E/E' Med: 7.00 E' Laterial: 11.50 E/E' Lat: 4.70 Right Ventricle TAPSE (mm): 20.00 TVS' Ayden: 12.00 Tricuspid Valve TR Pk Ayden: 2.06 TR Pk Grad: 17.00 RA Press: 3.00 RVSP: 20.00 Great Vessels Aorta Ao Root-2D: 3.10 2.0-3.7 cm Ao Asc: 3.00 2.1-3.4 cm Pulmonary Valve PV Pk Ayden: 0.88 Peak PV Grad: 3.00 Updated in Other Vendor System with Status of Final Gene Funk MD electronically signed on 09/01/2024 4:36:18 PM with status of Final
== END ==
LOC: HO.CARD 12:49
PROVIDERS: PCP Internal Medicine; Visit Provider Internal Medicine Cardiovascular Disease
DX: I42.8 Other cardiomyopathies (principal)
CPT/HCPCS: 93306

== ENCOUNTER → 2024-08-31 12:52 | Outpatient (BNV) | payer OTHER, SELFPAY | PROVIDERS: PCP Internal Medicine; Visit Provider Internal Medicine Cardiovascular Disease | DX: I51.89 Other ill-defined heart diseases (principal); R94.39 Abnormal result of other cardiovascular function study | CPT/HCPCS: 93306 ==

== ENCOUNTER 2024-09-22 12:19 | Outpatient (AMB) | payer OTHER, SELFPAY ==
--- NOTE | 2024-09-22 12:32 | MHC.OFFVIS ---
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 She was lost significant amount weight on weight loss medical therapy. As a result she was getting lightheaded and losartan and carvedilol were reduced. Since then she still gets occasionally lightheaded. Does not drink enough water. She has had no syncopal episodes. Noted to have fast heart rate which is always the case for her. Denies any orthopnea, PND, leg edema. Most recent echocardiogram shows normal LV ejection fraction with mild left atrial enlargement with no significant cardiac valvular abnormality [facility] Medical History Paresthesias Hypersomnia Snoring History of GI bleed Nonischemic cardiomyopathy PCOS (polycystic ovarian syndrome) Congestive heart failure Obesity (BMI 30-39.9) Ocular migraine Hypertension Hypercholesterolemia GERD (gastroesophageal reflux disease) Family History Mother No problems noted. Father FH: prostate cancer Maternal Grandfather Colon cancer Social History Housing: House Alcohol intake: current Alcohol intake frequency: a few times a month Comment: 2 days weekend 1 glass Patient Tobacco Use Status: Never used Tobacco e-Cigarette/Vaping Use: Never Used Second Hand Smoke Exposure: No service: No Current occupational status: employed Current occupational exposures/hazards: No Cognitive needs: No Hearing needs: No Vision needs: No Female Reproductive History Menstrual Age of Menarche: 15 Review of Systems Const Denies chills, Denies fatigue, Denies fever(s), Denies frequent falls, Denies weakness, Denies weight gain and Denies weight loss ENT Denies dizziness Card Denies chest pain, Denies leg edema, Denies lightheadedness, Denies palpitations, Denies dyspnea, Denies dyspnea on exertion, Denies orthopnea and Denies other (loss of consciousness) Resp Denies cough, Denies dyspnea and Denies dyspnea on exertion GI Denies hematochezia and Denies change in stool character Musc Denies abnormal gait, Denies muscle weakness, Denies numbness, Denies radiating pain into limb and Denies tingling Neuro Denies Abnormal speech present, Denies abnormal gait, Denies dizziness, Denies frequent falls, Denies numbness, Denies tingling and Denies weakness Endo Denies fatigue and Denies palpitations Physical Exam Vital Signs: Last Vital Signs Pulse 100 09/22/24 12:33 BP 120/74 09/22/24 12:33 BMI result Body Mass Index 25.1 Const General: cooperative, comfortable, no acute distress, alert, awake, Physically active and well groomed Nutritional Appearance: average body habitus Orientation/consciousness: patient oriented x3 Limitations: no limitations HEENT Head: Yes normal to inspection and Yes normocephalic Neck Neck: Yes trachea midline, Yes supple and Yes no JVD Resp Effort & Inspection: normal respiratory effort Auscultation: clear to auscultation bilaterally Cardio Jugular venous distension: no JVD Rate: regular rate Rhythm: regular rhythm Heart sounds: S1 normal heart sound present, S2 normal heart sound present, no click, no gallops, no murmurs and no rubs GI Inspection: Yes obesity Auscultation: normal bowel sounds Skin General skin exam: no rashes or lesions noted Neuro General: patient oriented x3 and no focal motor deficits Speech: No Abnormal speech present Extrem General: Yes no clubbing, cyanosis or edema Psych Appearance: grossly normal Office Procedures EKG Details: EKG shows normal sinus rhythm 100 beats per minute with poor R-wave progression most likely lead placement [id number], Complete Assessment & Plan Assessment & Plan (1) Nonischemic cardiomyopathy: Comment: January 2013 EF 61%, April 2018 EF 59% June 2020 echocardiogram ejection fraction 53% normal left ventricular activity October 2022. Normal LV systolic function with very mild asymmetric septal hypertrophy with grade 1 diastolic dysfunction 2. Normal cardiac valvular Doppler 3. No gross pericardial effusion Code(s): I42.8 - Other cardiomyopathies Category: Medical Plan: Nonischemic cardiomyopathy with normal LV ejection fraction by recent echocardiogram. She has done well on current neurohormonal modulation. Does have some occasional lightheadedness. Advised to increase her fluid intake to prevent orthostatic symptoms. Mechanism of orthostatic hypotension was discussed. If she continues to have lower blood pressures, may need reduction therapy and would start with reducing losartan therapy 1st. Continue carvedilol therapy. Avoidance of stimulants was discussed. Advised to continue pursue aggressive lifestyle modification with aggressive weight loss. Regular physical activity was recommended. Good prognosis with normalized LV ejection fraction was discussed. Will follow up in the clinic in 2 years time after an echocardiogram. Thank you for allowing me to partake in his care. Coding Level of Care Code Est Pt Level 4 (64975) Complex EM visit Add On G2211 Diagnoses Nonischemic cardiomyopathy I42.8 CPT Codes EKG - CPT: 56783-Yxrivuhaymgdjirdm, Complete ([id number])
[2024-09-22 12:33] VITALS: BP 120/74; PULSE 100; BMI 25.1
== END 2024-09-22 12:51 | disposition home or self-care (01) ==
PROVIDERS: PCP Internal Medicine; Visit Provider Internal Medicine Cardiovascular Disease
DX: I42.8 Other cardiomyopathies (principal)
CPT/HCPCS: 93010; 99214

== ENCOUNTER → 2024-09-22 12:19 | Outpatient (BNVA) | payer OTHER, SELFPAY | PROVIDERS: PCP Internal Medicine; Visit Provider Internal Medicine Cardiovascular Disease | DX: I42.8 Other cardiomyopathies (principal) | CPT/HCPCS: 93005 ==

== ENCOUNTER 2024-10-09 08:22 | Outpatient (AMB) | payer OTHER, SELFPAY ==
--- NOTE | 2024-10-09 08:26 | MHC.OFFVIS ---
Intake Visit Reasons: Left GSV RFA Accompanied by: Self / Same As Patient Allergies No Known Allergies Allergy (Verified 10/09/24 08:26) PFSH Medical History Paresthesias Hypersomnia Snoring History of GI bleed Nonischemic cardiomyopathy PCOS (polycystic ovarian syndrome) Congestive heart failure Obesity (BMI 30-39.9) Ocular migraine Hypertension Hypercholesterolemia GERD (gastroesophageal reflux disease) Family History Mother No problems noted. Father FH: prostate cancer Maternal Grandfather Colon cancer Social History Housing: House Alcohol intake: current Alcohol intake frequency: a few times a month Comment: 2 days weekend 1 glass Patient Tobacco Use Status: Never used Tobacco e-Cigarette/Vaping Use: Never Used Second Hand Smoke Exposure: No service: No Current occupational status: employed Current occupational exposures/hazards: No Cognitive needs: No Hearing needs: No Vision needs: No Female Reproductive History Menstrual Age of Menarche: 15 Office Procedures Vascular Office Procedure Details Details: Diagnosis: Varicose veins with inflammation of left leg Procedure: Endovenous radiofrequency ablation of the left great saphenous vein(s) of the lower extremity with Venclose RF ablation Anesthesia: Local infiltration 5 cc, Tumescent 300 cc. Mill Dresser: Andreina MASON Estimated Blood Loss: Minimal The patient was transferred to the procedure suite and the insufficient saphenous vein was mapped by ultrasound and diagrammed on the overlying skin. The depth and diameter of the vein(s) to be treated was documented. The varicose tributary veins and suitable access sites were identified and mapped as well. The patient was then positioned supine on the procedure table. The affected limb was prepped and draped in the usual sterile fashion. The RF catheter was placed on the sterile field, flushed and wiped down, prepared, and connected by a sterile cable. The patient was placed in a supine position and local anesthesia was instilled in the skin overlying the access site. A skin incision was made overlying the identified and mapped great saphenous vein entry site. The vein was accessed using ultrasound guidance and the Seldinger technique, a guide wire was introduced through the needle, which was then exchanged over the guide wire for a 6F sheath, which was secured in place. The guide wire was removed and the sheath was flushed. The RF catheter was placed into the vein through the sheath and preferentially, imaging was used to place the catheter tip just inferior to the superficial epigastric vein to preserve normal physiological flow in that vein. Additionally, it was confirmed by ultrasound guidance that the catheter tip was also placed a minimum of 1.5cm distal to the saphenofemoral junction. After the RF catheter position was verified by ultrasound, tumescent anesthesia was infiltrated, under ultrasound guidance, precisely into the perivenous compartment along the entire length of vein from the entry site to the saphenofemoral junction until a halo of fluid was noted around the vein. The patient was appropriately position. After RF catheter position was again confirmed with ultrasound imaging, and under direct external compression along the length of the heating element, RF energy was applied. The vein was segmentally ablated by heating a 10 cm segment and then indexing the catheter forward by 9.5 cm until the treatment length is completed. Device temperature was maintained at 120 plus or minus 5 degrees C with an initial power level of 4W/cm dropping to below 2W/cm for each treatment. Total vein length treated 25 cm Total cycles of RF 5. Repeat ultrasound of the saphenous vein was performed, confirming successful treatment. The catheter and sheath were withdrawn and hemostasis established with direct pressure. After assuring hemostasis, the skin incision over the saphenous vein was closed with a steristip and a compression wrap was applied from the level of the foot to the most proximal level of the thigh. Discharge instructions were given to the patient inclusive of follow-up ultrasound and recommended follow-up with us. 21723 - Endovenous RF, 1st Vein All charges added?: Procedure code (CPT) selection complete Assessment & Plan Assessment & Plan (1) Varicose veins of left lower extremity with inflammation: Comment: 10/09/2024 - left great saphenous vein radiofrequency ablation Code(s): I83.12 - Varicose veins of left lower extremity with inflammation Category: Medical Plan: See op note Coding Level of Care Code Procedure Only Diagnoses Varicose veins of left lower extremity with inflammation I83.12 CPT Codes Details - Vascular 1: 84203 - Endovenous RF, 1st Vein ([id number])
--- OUTSIDE RECORDS SUMMARY | 2024-10-09 08:31 | XMS_ITS | Patient Health Record ---
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 Name Role Phone Abhijeet Izabeladarsh Primary Care Provider Unavailabl e Black, Petrona Unavailable [phone] Allergies Allergen (clinical drug ingredient) Drug/Non Drug [...] Status Risk Notes Problem Ulcer of toe (284253182) Non-pressure chronic ulcer of other part of right foot limited to breakdown of skin (L97.511) Active confirmed Problem Acquired hammer toe of right foot (4340231314587 105) Other hammer toe(s) (acquired), right foot (M20.41) Active confirmed Problem Acquired hammer toe of left foot (8199031184867 103) Other hammer toe(s) (acquired), left foot (M20.42) Active confirmed Plan Of Treatment Pending Test Test Name Order Date 57561- Debride <25 sq cm 02/23/2022 21070 I&D ABSCESS- SIMPLE,SINGLE 022 Insurance Providers Payer Name Payer Address Payer Phone Subscriber Number Group Number Insured Name Patient Relationship to Insured Coverage Start Date Coverage End Date [facility] [address] [place] [address] [id number] Adina Garnett Self - patient is the insured Medical (General) History Medical History History ICD Code Congestive heart failure Reflux ( GERD) Hypercholesterolemia Hypertension Cardiomyopathy PCOS type II diabetes Anemia covid-19 Cholesterol Back,Hip,and Knee pain Chicken pox blood clots Surgical History Surgery Date(Month/Year)
== END 2024-10-09 09:48 | disposition home or self-care (01) ==
PROVIDERS: PCP Internal Medicine; Visit Provider Surgery Vascular Surgery
DX: I83.12 Varicose veins of left lower extremity with inflammation (principal)
CPT/HCPCS: 36475

== ENCOUNTER → 2024-10-09 08:22 | Outpatient (BNVA) | payer OTHER, SELFPAY | PROVIDERS: PCP Internal Medicine; Visit Provider Surgery Vascular Surgery | DX: I83.12 Varicose veins of left lower extremity with inflammation (principal) | CPT/HCPCS: 36475; J2003; J2004 ==

== ENCOUNTER 2024-10-13 08:50 | Outpatient (AMB) | payer OTHER, SELFPAY ==
[2024-10-13 08:59] VITALS: BMI 25.0
--- NOTE | 2024-10-13 08:59 | MHC.OFFVIS ---
Vital Signs 10/13/24 08:59 Height 5 ft 9 in Weight 169 lb BMI 25.0 Intake Visit Reasons: Add-on for ? allergic reaction RFA 10/09/24 Intake Note: pt here for a follow up s/p Left GSV RFA 10/09/24. Pt has a developed a rash on the Left LE. Itching comes and goes. Has been taking Benadryl at night and using benadryl cream over affected area. Commercial Field Inspector Required: No Accompanied by: Self / Same As Patient Allergies chlorhexidine [From ChloraPrep Clear] Allergy (Mild, Verified 10/13/24 09:32) Rash isopropyl alcohol [From ChloraPrep Clear] Allergy (Mild, Verified 10/13/24 09:32) Rash adhesive Adverse Reaction (Intermediate, Verified 10/13/24 09:05) Rash HPI HPI Add-on for ? allergic reaction RFA 10/09/24: Details: Adina is presenting today status post left GSV RFA, performed on 10/09/2024, with concerns for rash/allergic reaction. She states after unwrapping her leg on Saturday she noticed some itching and a rash, mostly on her upper thigh circumferentially. She states it is intermittently itchy but not painful. She states on the posterior aspect of the thigh it is more thicker and concentrated. She denies any difficulty breathing, shortness of breath, or chest pain. She has been taking Benadryl orally at night before bed and applying Benadryl cream with little relief. [facility] Medical History Paresthesias Hypersomnia Snoring History of GI bleed Nonischemic cardiomyopathy PCOS (polycystic ovarian syndrome) Congestive heart failure Obesity (BMI 30-39.9) Ocular migraine Hypertension Hypercholesterolemia GERD (gastroesophageal reflux disease) Family History Mother No problems noted. Father FH: prostate cancer Maternal Grandfather Colon cancer Social History Housing: House Alcohol intake: current Alcohol intake frequency: a few times a month Comment: 2 days weekend 1 glass Patient Tobacco Use Status: Never used Tobacco e-Cigarette/Vaping Use: Never Used Second Hand Smoke Exposure: No service: No Current occupational status: employed Current occupational exposures/hazards: No Cognitive needs: No Hearing needs: No Vision needs: No Female Reproductive History Menstrual Age of Menarche: 15 Review of Systems Const Reports as per HPI and Denies weakness ENT Reports Normal hearing present and Denies dizziness Card Reports as per HPI, Denies chest pain, Denies chest pain at rest, Denies chest pain with activity, Denies dyspnea and Denies dyspnea on exertion Resp Reports as per HPI, Denies cough, Denies dyspnea and Denies dyspnea on exertion GI Reports as per HPI, Denies abdominal pain, Denies nausea and Denies vomiting Musc Denies numbness Skin/Breast Reports as per HPI, Denies erythema and Denies wounds Neuro Reports Normal hearing present, Denies dizziness, Denies numbness, Denies Sensory deficit (Neuro) and Denies weakness Psych Reports no additional complaints Endo Reports no additional complaints Physical Exam Vital Signs: BMI result Body Mass Index 25.0 Const General: healthy appearing and no acute distress Orientation/consciousness: patient oriented x3 HEENT Head: Yes normal to inspection Ears: hearing grossly normal bilaterally Mouth: Normal oral and palatal mucosa present Resp Effort & Inspection: normal respiratory effort and able to speak in complete sentences Auscultation: clear to auscultation bilaterally Cardio Jugular venous distension: no JVD Rate: regular rate Rhythm: regular rhythm Heart sounds: S1 normal heart sound present and S2 normal heart sound present Bruits: no abdominal aortic bruits, no carotid bruits, no femoral bruits and no renal bruits Peripheral pulses: Peripheral pulses 2+ throughout GI Inspection: Yes normal to inspection Palpation (GI): No Abdominal aortic bruit present Skin General skin exam: no rashes or lesions noted Wounds: no wounds Hair: normal Neuro General: patient oriented x3 Cranial nerves: Yes Normal hearing present Cognition (Neuro): normal cognition Gait exam (Neuro): Normal gait present Motor exam (neuro): 5/5 motor strength present throughout Sensory Exam: No Sensory deficit (Neuro) Extrem Other: Left lower extremity: Bumpy red papules in clusters noted in the direction of how the ChloraPrep is applied linearly, mostly circumferentially on the thigh, above the knee. There is scattered papules noted in the lower leg around the calf. Not painful to palpation. The RFA site is clean, dry, and intact. There is some slight bruising at the multiple incision sites. The Steri-Strips have fallen off. General: Yes normal to inspection, Yes full ROM, Yes capillary refill normal and Yes normal gait Assessment & Plan Assessment & Plan (1) Allergic dermatitis: Code(s): L23.9 - Allergic contact dermatitis, unspecified cause Category: Medical Plan: Adina is present for concerns of a possible allergic reaction status post left GSV RFA, performed on 10/09/2024. She states that when she wrapped her leg on Saturday she noticed bumpy red spots all over her legs. She states there intermittently itchy. Likely this is due to an allergic dermatitis of the ChloraPrep that was used prior to the surgical procedure. The papules are noted in a linear fashion, the way the patient was prepped with ChloraPrep. She has been taking Benadryl at night and using Benadryl cream with little relief. I discussed whether to add on an extra dose of Claritin, try Pepcid, and also hydrocortisone cream OTC for the dermatitis. She denies any difficulty breathing or shortness of breath. I discussed with her likely this will go away in a few days; if it did not, to reach back out to us. We will have her continue with her a follow up appointment next week with Dr. Lerma to possibly discuss getting her right lower extremity done as well. If there are any questions or concerns, please do not hesitate to reach out to us. Coding Level of Care Code Est Pt Level 4 (00080) Diagnoses Allergic dermatitis L23.9
--- OUTSIDE RECORDS SUMMARY | 2024-10-13 09:30 | XMS_ITS | Patient Health Record ---
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 Name Role Phone Abhijeet Izabeladarsh Primary Care Provider Unavailabl e Black, Petrona Unavailable [phone] Allergies Allergen (clinical drug ingredient) Drug/Non Drug [...] Status Risk Notes Problem Ulcer of toe (013920783) Non-pressure chronic ulcer of other part of right foot limited to breakdown of skin (L97.511) Active confirmed Problem Acquired hammer toe of right foot (8655030288958 105) Other hammer toe(s) (acquired), right foot (M20.41) Active confirmed Problem Acquired hammer toe of left foot (1697951498662 103) Other hammer toe(s) (acquired), left foot (M20.42) Active confirmed Plan Of Treatment Pending Test Test Name Order Date 87169- Debride <25 sq cm 02/23/2022 81674 I&D ABSCESS- SIMPLE,SINGLE 022 Insurance Providers Payer Name Payer Address Payer Phone Subscriber Number Group Number Insured Name Patient Relationship to Insured Coverage Start Date Coverage End Date [facility] [address] [place] [address] [id number] Adina Garnett Self - patient is the insured Medical (General) History Medical History History ICD Code Congestive heart failure Reflux ( GERD) Hypercholesterolemia Hypertension Cardiomyopathy PCOS type II diabetes Anemia covid-19 Cholesterol Back,Hip,and Knee pain Chicken pox blood clots Surgical History Surgery Date(Month/Year)
== END 2024-10-13 09:27 | disposition home or self-care (01) ==
PROVIDERS: PCP Internal Medicine; Visit Provider Physician Assistant Surgical
DX: L23.9 Allergic contact dermatitis, unspecified cause (principal)
CPT/HCPCS: 99214

== ENCOUNTER 2024-10-20 14:49 | Outpatient (AMB) | payer OTHER, SELFPAY ==
--- NOTE | 2024-10-20 14:54 | MHC.OFFVIS ---
Intake Visit Reasons: Follow up left GSV RFA Intake Note: Patient presents for follow up left GSV RFA. No complaints. Accompanied by: Self / Same As Patient Allergies chlorhexidine [From ChloraPrep Clear] Allergy (Mild, Verified 10/20/24 14:57) Rash isopropyl alcohol [From ChloraPrep Clear] Allergy (Mild, Verified 10/20/24 14:57) Rash adhesive Adverse Reaction (Intermediate, Verified 10/20/24 14:57) Rash HPI HPI Follow up left GSV RFA: Details: Very pleasant 44-year-old female presents for follow-up status post left great saphenous vein radiofrequency ablation which was done on 10/09/2024. She had actually seen us earlier for a reaction on the left lower extremity. She had developed a maculopapular rash throughout the entire left lower extremity. Subsequent to that she was taking Benadryl with hydrocortisone cream and it appeared to be doing somewhat better. She is now for routine follow-up. [facility] Medical History Paresthesias Hypersomnia Snoring History of GI bleed Nonischemic cardiomyopathy PCOS (polycystic ovarian syndrome) Congestive heart failure Obesity (BMI 30-39.9) Ocular migraine Hypertension Hypercholesterolemia GERD (gastroesophageal reflux disease) Family History Mother No problems noted. Father FH: prostate cancer Maternal Grandfather Colon cancer Social History Housing: House Alcohol intake: current Alcohol intake frequency: a few times a month Comment: 2 days weekend 1 glass Patient Tobacco Use Status: Never used Tobacco e-Cigarette/Vaping Use: Never Used Second Hand Smoke Exposure: No service: No Current occupational status: employed Current occupational exposures/hazards: No Cognitive needs: No Hearing needs: No Vision needs: No Female Reproductive History Menstrual Age of Menarche: 15 Review of Systems Const All systems reviewed & are unremarkable except as noted in HPI and below Reports no additional complaints ENT Reports Normal hearing present Card Denies chest pain, Denies chest pain at rest, Denies chest pain with activity and Denies pedal edema Resp Denies cough GI Denies abdominal pain Musc Denies abnormal gait, Denies muscle cramps and Denies radiating pain into limb Skin/Breast Denies skin ulcer and Denies wounds Neuro Reports Normal hearing present and Denies abnormal gait Psych Reports no additional complaints Physical Exam Const General: cooperative, healthy appearing and comfortable Orientation/consciousness: oriented to person, oriented to place and oriented to time HEENT Head: Yes normal to inspection Neck Neck: Yes normal visual inspection Carotids: no bruits Chest Chest palpation & inspection: normal inspection of the chest Resp Effort & Inspection: normal respiratory effort and able to speak in complete sentences Auscultation: clear to auscultation bilaterally, no crackles, no rales, no rhonchi and no wheezes Cardio Rate: regular rate Rhythm: regular rhythm Heart sounds: S1 normal heart sound present and S2 normal heart sound present Bruits: no carotid bruits Peripheral pulses: Peripheral pulses 2+ throughout GI Inspection: Yes normal to inspection Skin Other: Maculopapular rash left lower extremity- mild Wounds: no wounds Hair: normal Neuro General: oriented to person, oriented to place and oriented to time Cranial nerves: Yes CN's II-XII intact bilaterally and Yes Normal hearing present Cognition (Neuro): normal cognition Motor exam (neuro): 5/5 motor strength present throughout Extrem Other: venous exam: No significant superficial varicosities or spider telangiectasias, minimal edema General: No clubbing, No cyanosis and No edema Psych Appearance: grossly normal Mental Status: mental status grossly normal Speech and movement: Normal speech and movement present Assessment & Plan Assessment & Plan (1) Varicose veins of left lower extremity with inflammation: Comment: 10/09/2024 - left great saphenous vein radiofrequency ablation Code(s): I83.12 - Varicose veins of left lower extremity with inflammation Category: Medical Plan: Patient appears to be doing better with the left lower extremity. The rash does appear to be improving. At the current time will continue with topical cream and Claritin in addition to oral Benadryl. Should it worsen may require a Medrol Dosepak. She will follow up with us in approximately 1 months time. At that time we will consider treatment of the right lower extremity if the left leg looks good. When we do treat the right lower extremity we will switch the prep to a Betadine prep as opposed to the chlora prep which appears to have caused the reaction. Thank you for allowing us to assist in her care. If there are any questions or concerns please do not hesitate to contact us Coding Level of Care Code Est Pt Level 3 (82804) Diagnoses Varicose veins of left lower extremity with inflammation I83.12
--- OUTSIDE RECORDS SUMMARY | 2024-10-20 18:11 | XMS_ITS | Patient Health Record ---
Author Organization [facility] Address [address] [place] [address] Care Team Providers Care Tube Winder Hand Name Role Phone Abhijeet Izabeladarsh Primary Care Provider Unavailabl e Black, Petrona Unavailable [phone] Allergies Allergen (clinical drug ingredient) Drug/Non Drug [...] Status Risk Notes Problem Ulcer of toe (394963142) Non-pressure chronic ulcer of other part of right foot limited to breakdown of skin (L97.511) Active confirmed Problem Acquired hammer toe of right foot (1434260569443 105) Other hammer toe(s) (acquired), right foot (M20.41) Active confirmed Problem Acquired hammer toe of left foot (9084021561353 103) Other hammer toe(s) (acquired), left foot (M20.42) Active confirmed Plan Of Treatment Pending Test Test Name Order Date 53613- Debride <25 sq cm 02/23/2022 70406 I&D ABSCESS- SIMPLE,SINGLE 022 Insurance Providers Payer Name Payer Address Payer Phone Subscriber Number Group Number Insured Name Patient Relationship to Insured Coverage Start Date Coverage End Date [facility] [address] [place] [address] [phone] [id number] Adina Garnett Self - patient is the insured Medical (General) History Medical History History ICD Code Congestive heart failure Reflux ( GERD) Hypercholesterolemia Hypertension Cardiomyopathy PCOS type II diabetes Anemia covid-19 Cholesterol Back,Hip,and Knee pain Chicken pox blood clots Surgical History Surgery Date(Month/Year)
== END 2024-10-20 15:14 | disposition home or self-care (01) ==
LOC: HO.HVS 14:50
PROVIDERS: PCP Internal Medicine; Visit Provider Surgery Vascular Surgery
DX: I83.12 Varicose veins of left lower extremity with inflammation (principal)
CPT/HCPCS: 99213

== ENCOUNTER 2024-11-06 11:19 | Outpatient (REF) | payer OTHER, SELFPAY ==
[2024-11-06 11:37] LABS: MANUAL DIFF FLAG NO
[2024-11-06 12:10] LABS: Basophils Absolute Auto 0.1 X10*3/uL (0.0-0.2); Basophils Percent Auto 0.8 % (0-2); Eosinophils Absolute Auto 0.4 X10*3/uL (0.0-0.4); Eosinophils Percent Auto 4.7 % (0-4); Hematocrit 39.1 % (37.0-47.0); Hemoglobin 13.5 g/dl (12.0-16.0); Imm Gran Abs Auto 0.03 X10*3/uL (0.00-0.03); Imm Gran Pct Auto 0.4 % (0.0-0.4); Lymphocytes Absolute Auto 2.4 X10*3/uL (1.2-4.9); Lymphocytes Percent Auto 28.5 % (20-40); Mean Corpuscular HGB Conc 34.5 g/dl (31.0-35.0); Mean Corpuscular Hemoglobin 29.4 pg (27.0-33.0); Mean Corpuscular Volume 85.2 fL (80.0-98.0); Mean Platelet Volume 8.5 fL (9.4-12.3); Monocytes Absolute Auto 0.5 X10*3/uL (0.1-1.2); Monocytes Percent Auto 6.5 % (2-11); Neutrophils Absolute Auto 4.9 x10*3/uL (2.0-8.3); Neutrophils Percent Auto 59.1 % (45-73); Platelet Count 281 X10*3/uL (160-400); Red Blood Count 4.59 X10*6/uL (4.20-5.50); Red Cell Distribution Width 12.1 % (11.0-16.0); White Blood Count 8.3 X10*3/uL (4.8-10.8)
[2024-11-06 12:16] LABS: Estimated Average Glucose 85 mg/dL; Hemoglobin A1c % 4.6 % (<6.0); Total Hemoglobin (HGBA1C) 3589.9172 umol/L
[2024-11-06 12:50] LABS: Creatinine Urine 166.56 mg/dL; Microalbum/Creatinine Ratio Ur 15.6 ug/mg cr (<30)
[2024-11-06 12:56] LABS: Alanine Aminotransferase 9 U/L (0-31); Alkaline Phosphatase 31 U/L (39-117); Anion Gap 7 (12-20); Aspartate Amino Transferase 16 U/L (5-31); Bilirubin Total 0.6 mg/dL (0.0-1.0); Blood Urea Nitrogen 11 mg/dL (9-16); Calcium 8.8 mg/dL (8.4-10.2); Carbon Dioxide 26 mmol/L (22-29); Chloride 110 mmol/L (96-108); Cholesterol 168 mg/dL (<200); Estimated Glomerular Filt Rate > 60; Glucose Random 79 mg/dL (60-115); HDL Cholesterol 48 mg/dL (>40); LDL Cholesterol Calculated 108 mg/dL (<100); Potassium 3.9 mmol/L (3.3-5.1); Sodium 139 mmol/L (135-145); Total Protein 6.8 g/dL (6.5-8.0); Triglycerides 60 mg/dL (<150)
[2024-11-06 13:01] LABS: Free T4 (Free Thyroxine) 1.29 ng/dL (0.71-1.85); Thyroid Stimulating Hormone 0.95 uIU/mL (0.32-4.0); Vitamin D 25-OH Total 61.8 ng/mL (>30)
[2024-11-06 13:12] LABS: Folate 15.5 ng/mL (> or = 4.0); Vitamin B12 615 pg/mL (200-900)
[2024-11-12 06:23] LABS: Vitamin B6 14.7 ng/mL (2.1-21.7)
== END 2024-11-06 11:20 | disposition home or self-care (01) ==
LOC: HO.LAB 11:19
PROVIDERS: PCP Internal Medicine; Visit Provider Internal Medicine
DX: E11.65 Type 2 diabetes mellitus with hyperglycemia (principal); E78.00 Pure hypercholesterolemia, unspecified; G62.9 Polyneuropathy, unspecified
CPT/HCPCS: 36415; 80053; 80061; 82043; 82306; 82570; 82607; 82746; 83036; 84207; 84439; 84443; 85025

== ENCOUNTER 2024-11-19 10:45 | Outpatient (AMB) | payer OTHER, SELFPAY ==
--- NOTE | 2024-11-19 11:01 | A.OFFPC_ITS ---
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 Accompanied by: Self / Same As Patient Allergies chlorhexidine [From ChloraPrep Clear] Allergy (Mild, Verified 11/19/24 11:13) Rash isopropyl alcohol [From ChloraPrep Clear] Allergy (Mild, Verified 11/19/24 11:13) Rash adhesive Adverse Reaction (Intermediate, Verified 11/19/24 11:13) Rash Medication List - Last Reconciled 11/19/24 by Eliseo Jha MD biotin 1 mg PO DAILY PRN carvedilol 12.5 mg (1/2 x 25 mg) PO BID 90 days cetirizine (Zyrtec) 10 mg PO DAILY PRN fluticasone propionate 50 mcg/actuation 1 spray intranasal Q12H gabapentin 100 mg PO BEDTIME lactobacillus combination no.4 (Probiotic) 3,000 mmu cells PO DAILY losartan 25 mg PO DAILY 90 days metformin 500 mg PO DAILY multivitamin 1 tab PO DAILY pantoprazole 40 mg PO DAILY 90 days simvastatin 10 mg PO BEDTIME 30 days spironolactone 25 mg PO DAILY 90 days tirzepatide 15 mg (0.5 mL) subcut QWEEK Tobacco use date assessed: 11/19/24 Dental Screening Dental Screen Date: 11/19/24 Did you have a dental visit in the last 12 months?: Yes Did you have a dental problem in the last 6 months where you did not have access to dental care?: No Was dental information given to patient?: Patient has dentist [facility] Medical History Paresthesias Hypersomnia Snoring History of GI bleed Nonischemic cardiomyopathy PCOS (polycystic ovarian syndrome) Congestive heart failure Obesity (BMI 30-39.9) Ocular migraine Hypertension Hypercholesterolemia GERD (gastroesophageal reflux disease) Surgical History (Updated 11/19/24 @ 11:08 by Katty Maza CMA) No pertinent past surgical history Family History Mother No problems noted. Father FH: prostate cancer Maternal Grandfather Colon cancer Social History (Reviewed 11/19/24 @ 11:06 by Katty Maza [facility] [address]) Housing: House Alcohol intake: current Alcohol intake frequency: a few times a month Comment: 2 days weekend 1 glass Patient Tobacco Use Status: Never used Tobacco e-Cigarette/Vaping Use: Never Used Second Hand Smoke Exposure: No service: No Current occupational status: employed Current occupational exposures/hazards: No Cognitive needs: No Hearing needs: No Vision needs: No Female Reproductive History Menstrual Age of Menarche: 15 Questionnaire Thrive Questionnaire Date Thrive assessed: 11/19/24 I am a: Patient What is your living situation today?: I have a steady place to live Within the past 12 months, did the food you bought not last and you didn't have the money to get more?: Never true Within the past 12 months, did you worry whether your food would run out before you got money to buy more?: Never true Do you have trouble paying for medicines?: No Do you have trouble getting transportation to medical appointments?: No Do you have trouble paying your heating and electricity bill?: No Do you have trouble taking care of your child, family member or friend?: No Do you have trouble with day-to-day activities such as bathing, preparing meals, shopping, managing finances, etc.?: No Are you currently unemployed and looking for a job?: No Are you interested in more education?: No Currently or been in a relationship where the following occur: No concerns reported THRIVE Score: 0 AUDIT C Alcohol Use Questionnaire (AUDIT-C) 1. How often do you have a drink containing alcohol?: 2-4 times a month 2. How many drinks containing alcohol do you have on a typical day when you are drinking?: 3 or 4 3. How often do you have six or more drinks on one occasion?: Never Total Score: 3 Score Reviewed/Action Taken: No SELENA-7 AMB Questionnaire SELENA-7 Date SELENA - 7 assessed: 08/13/24 Source: Developed by Drs. Dandy Vieyra, Marianne Rascon, Lance Gtz and colleagues, with an educational selin from [employer]. Physical exam (Primary Care) Vital Signs: Last Vital Signs Temp 97.3 F 11/19/24 11:02 Pulse 95 11/19/24 11:02 Resp 18 11/19/24 11:02 BP 116/80 11/19/24 11:02 Pulse Ox 97 11/19/24 11:02 Oxygen Delivery Method Room Air 11/19/24 11:02 BMI result Body Mass Index 24.9 Tobacco/Smoking Status: Tobacco use Status Tobacco use date assessed 11/19/24 11/19/24 11:09 Patient Tobacco Use Status Never used Tobacco 11/19/24 11:02 e-Cigarette/Vaping Use Never Used 11/19/24 11:02 Thrive Assessment: Date of Thrive Assessment Date Thrive assessed 11/19/24 11/19/24 11:09 Currently or been in a relationship where the following occur: No concerns reported Const General: alert; No acute distress Eyes Conjunctivae: conjunctivae normal Resp Auscultation: clear to auscultation bilaterally Cardio Rate: regular rate Rhythm: regular rhythm GI Inspection: Yes normal to inspection Extrem General: Yes normal to inspection and No edema Coding Level of Care Code Est Pt Level 4 (56882) Complex EM visit Add On G2211 Diagnoses Type 2 diabetes mellitus with hyperglycemia E11.65 Essential hypertension I10 Hypertension type: essential hypertension Hypercholesterolemia E78.00 Gastroesophageal reflux disease without esophagitis K21.9 Esophagitis presence: without esophagitis Nonischemic cardiomyopathy I42.8 Assessment & Plan Assessment & Plan (1) Type 2 diabetes mellitus with hyperglycemia: Code(s): E11.65 - Type 2 diabetes mellitus with hyperglycemia Category: Medical Plan: Is plan patient on metformin 500 mg once a day on tirzepatide 15 mg once a week (2) Hypertension: Code(s): I10 - Essential (primary) hypertension Category: Medical Qualifiers: Hypertension type: essential hypertension Qualified Code(s): I10 - Essential (primary) hypertension Plan: Continue with blood pressure medication. Decrease salt intake and exercise on spironolactone losartan 25 once a day carvedilol 12.5 mg twice a day (3) Hypercholesterolemia: Code(s): E78.00 - Pure hypercholesterolemia, unspecified Category: Medical Plan: Avoid fried foods, chicken skin, eggs, butter margarine, pastries and meat. Be it pork or beef they have a lot of cholesterol on simvastatin 10 mg at bedtime (4) GERD (gastroesophageal reflux disease): Code(s): K21.9 - Gastro-esophageal reflux disease without esophagitis Category: Medical Qualifiers: Esophagitis presence: without esophagitis Qualified Code(s): K21.9 - Gastro-esophageal reflux disease without esophagitis Plan: Avoid the foods that causes that usually spicy foods, tomato products, juices, coffee, soda and foods that your sensitive to. After eating do not lie down, allow 3-4 hours before in lie down. And keep the head of bed above 30 degrees to avoid the acid from going up. (5) Nonischemic cardiomyopathy: Comment: January 2013 EF 61%, April 2018 EF 59% June 2020 echocardiogram ejection fraction 53% normal left ventricular activity October 2022. Normal LV systolic function with very mild asymmetric septal hypertrophy with grade 1 diastolic dysfunction 2. Normal cardiac valvular Doppler 3. No gross pericardial effusion Code(s): I42.8 - Other cardiomyopathies Category: Medical Plan History of Present Illness The patient is a 44-year-old female presenting for follow-up on her chronic conditions, including diabetes, hypertension, and hypercholesterolemia. Her blood work in October showed normal results, with a blood sugar level of 79 mg/dL and an A1c of 4.6%. Her LDL cholesterol increased to 108 mg/dL, which peck a rise from her previous measurement. The patient has been experiencing lightheadedness due to her medication regimen for hypertension, leading to dosage adjustments. Her recent echocardiogram indicated normal left ventricular function with mild left atrial enlargement. She mentioned a potential incident with swallowing a chicken bone, causing temporary discomfort, but reports no ongoing symptoms. Her medication adherence is good, including metformin, terzepatide, spironolactone, losartan, carvedilol, and simvastatin. Health discussions included increasing oral fluid intake and maintaining steady physical activity despite weight loss. She had no further symptoms of bowel irregularity or blood in her stool and reports overall improvement. Health Maintenance - Recent blood work in October with normal results. - Advised increasing fluid intake for medication management. - Echocardiogram in August with normal left ventricular function and mild left atrial enlargement. 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 - Current medication regimen includes metformin, terzepatide, spironolactone, losartan (reduced due to hypotension), carvedilol (middle dose), and simvastatin. - Mammogram updated in August 2024. - Encourage regular exercise and maintaining a healthy diet. - Advised on managing potential side effects of medications. Social History - No discussion on employment or family planning. - Reports attending a conference, illustrating active self-management of education and professional responsibilities. - Reports advancements in weight management, suggesting an active pursuit of lifestyle modifications. - Acknowledged exercising or making efforts to increase physical activities. Review of Systems - Cardiovascular: Reports lightheadedness from losartan and carvedilol. - Gastrointestinal: Reports incident with chicken bone swallowing and previous blood in stool. - Constitutional: Denies current pain, irregular bowel habits, or constipation. - Dermatological: Reports rash and reaction post vascular procedure. - Hematological: Denies any bleeding concerns after the initial incident. Physical Exam - Cardiovascular- Normal heart sounds. - Respiratory- Breath sounds normal, no abnormalities detected during auscultation. Results - Labs: Normal blood counts, renal function, and liver function. LDL cholesterol level recorded at 108 mg/dL. - Tests and Diagnostics: Echocardiogram showed normal left ventricular function with mild left atrial enlargement. Plan We reviewed the patient's chronic condition management, focusing on adjustments for her diabetes, hypertension, and lipid control. Her metformin and terzepatide regimen for diabetes appears to be effective. Adjustments were made to her hypertension management due to lightheadedness, with losartan reduced and an emphasis on water intake to counteract spironolactone effects. The patient is advised to strictly adhere to her simvastatin regimen due to elevated LDL levels. Her echocardiogram indicates stability in cardiac function. Current dietary habits and gastrointestinal symptoms were discussed, emphasizing regular follow-ups and lifestyle modifications. Patient was informed and verbally consented to the use of an ambient scribe for clinic note documentation during this visit. Discussion Notes I discussed with the patient the current management of her diabetes, hypertension, and hypercholesterolemia, ensuring alignment of her treatment re gimen with observed clinical outcomes. Potential side effects from her medications and strategies to mitigate symptoms like lightheadedness were considered. We reviewed the lab and echocardiogram results, ensuring understanding of their implications on her health status. The patient was informed about the importance of lifestyle changes, especially increased fluid intake and maintenance of regular physical activity. I encouraged adherence to her prescribed dosages and discussed potential adjustments in therapy based on symptomatology. Future follow-ups were planned to monitor her clinical prog ression and response to treatment. Patient Instructions - Continue prescribed diabetes medications: metformin and terzepatide. - Follow prescribed dosage of losartan with adjustments as discussed. - Take simvastatin as instructed, especially due to increased cholesterol levels. - Monitor and increase water intake to manage spironolactone effects. - Perform regular physical activity and maintain a balanced diet. - Observe for any gastrointestinal changes or adverse effects and report if symptoms persist. - Schedule and maintain follow-up appointments with your plastic extrusion operator and vascular team. - No new vaccines needed but ensure tetanus booster status is updated when available. - Follow up in February as planned, unless advised otherwise.
[2024-11-19 11:02] VITALS: BP 116/80; PULSE 95; RESP 18; TEMP 36.3; O2SAT 97; BMI 24.9
--- OUTSIDE RECORDS SUMMARY | 2024-11-19 12:49 | XMS_ITS | Patient Health Record ---
Author Organization [facility] Address [address] [place] [address] Care Team Providers Care Patient Access Specialist Name Role Phone Abhijeet Izabeladarsh Primary Care Provider Unavailabl e Black, Petrnoa Unavailable [phone] Allergies Allergen (clinical drug ingredient) Drug/Non Drug [...] Status Risk Notes Problem Ulcer of toe (988432702) Non-pressure chronic ulcer of other part of right foot limited to breakdown of skin (L97.511) Active confirmed Problem Acquired hammer toe of right foot (7602279829435 105) Other hammer toe(s) (acquired), right foot (M20.41) Active confirmed Problem Acquired hammer toe of left foot (1600105386196 103) Other hammer toe(s) (acquired), left foot (M20.42) Active confirmed Plan Of Treatment Pending Test Test Name Order Date 29523- Debride <25 sq cm 02/23/2022 70300 I&D ABSCESS- SIMPLE,SINGLE 022 Insurance Providers Payer Name Payer Address Payer Phone Subscriber Number Group Number Insured Name Patient Relationship to Insured Coverage Start Date Coverage End Date [facility] [address] [place] [address] [phone] [id number] Adina Garnett Self - patient is the insured Medical (General) History Medical History History ICD Code Congestive heart failure Reflux ( GERD) Hypercholesterolemia Hypertension Cardiomyopathy PCOS type II diabetes Anemia covid-19 Cholesterol Back,Hip,and Knee pain Chicken pox blood clots Surgical History Surgery Date(Month/Year)
== END 2024-11-19 12:02 | disposition home or self-care (01) ==
LOC: HO.HMCH 10:46
PROVIDERS: PCP Internal Medicine; Visit Provider Internal Medicine
DX: E11.65 Type 2 diabetes mellitus with hyperglycemia (principal); I42.8 Other cardiomyopathies; I10 Essential (primary) hypertension; E78.00 Pure hypercholesterolemia, unspecified; K21.9 Gastro-esophageal reflux disease without esophagitis

== ENCOUNTER → 2024-11-19 10:45 | Outpatient (BNVA) | payer OTHER, SELFPAY | PROVIDERS: PCP Internal Medicine; Visit Provider Internal Medicine | DX: Z13.89 Encounter for screening for other disorder (principal) ==

== ENCOUNTER 2024-11-24 10:06 | Outpatient (AMB) | payer OTHER, SELFPAY ==
--- NOTE | 2024-11-24 10:08 | A.OFFVIS_ITS ---
Intake Visit Reasons: 1 month follow up- no testing Intake Note: Patient presents for one month follow up. Patient had a reaction after her last procedure, leg is doing much better . Accompanied by: Self / Same As Patient Allergies chlorhexidine [From ChloraPrep Clear] Allergy (Mild, Verified 11/24/24 10:10) Rash isopropyl alcohol [From ChloraPrep Clear] Allergy (Mild, Verified 11/24/24 10:10) Rash adhesive Adverse Reaction (Intermediate, Verified 11/24/24 10:10) Rash HPI HPI 1 month follow up- no testing: Details: The patient is a 44-year-old female presenting for follow-up evaluation of chronic venous insufficiency in both lower extremities, with notable post- procedural status following left leg endovenous laser ablation. Over the past month, she has reported a significant reduction in the rash and redness of the left leg while experiencing persistent skin alterations. While the left leg has considerably improved, her right leg remains more swollen, with no prior interventions undertaken on this side. COUNTS INCLUDE 234 BEDS AT THE [facility] Medical History Paresthesias Hypersomnia Snoring History of GI bleed Nonischemic cardiomyopathy PCOS (polycystic ovarian syndrome) Congestive heart failure Obesity (BMI 30-39.9) Ocular migraine Hypertension Hypercholesterolemia GERD (gastroesophageal reflux disease) Surgical History No pertinent past surgical history Family History Mother No problems noted. Father FH: prostate cancer Maternal Grandfather Colon cancer Social History Housing: House Alcohol intake: current Alcohol intake frequency: a few times a month Comment: 2 days weekend 1 glass Patient Tobacco Use Status: Never used Tobacco e-Cigarette/Vaping Use: Never Used Second Hand Smoke Exposure: No service: No Current occupational status: employed Current occupational exposures/hazards: No Cognitive needs: No Hearing needs: No Vision needs: No Female Reproductive History Menstrual Age of Menarche: 15 Review of Systems Const Reports as per HPI ENT Reports no additional complaints Card Denies chest pain, Denies chest pain at rest and Denies chest pain with activity Resp Denies chest congestion and Denies cough GI Reports no additional complaints Musc Details: pain over varicosities, aching of lower extremities, swelling, cramping, heaviness and tiredness, itching Denies abnormal gait Skin/Breast Reports pruritus and Denies wounds Neuro Reports no additional complaints and Denies abnormal gait Psych Denies no additional complaints Physical Exam Const General: cooperative, healthy appearing and comfortable Orientation/consciousness: oriented to person, oriented to place and oriented to time Neck Carotids: no bruits Chest Chest palpation & inspection: normal inspection of the chest and normal palpation of entire chest wall Resp Effort & Inspection: normal respiratory effort and able to speak in complete sentences Cardio Rate: regular rate Heart sounds: S1 normal heart sound present and S2 normal heart sound present Peripheral pulses: Peripheral pulses 2+ throughout GI Inspection: Yes normal to inspection Skin Other: +2 edema, large rope-like varicosities greater than 4 mm CEAP Classification C4 - skin color changes Ep - Etiology Primary As - superficial veins P - reflux General skin exam: dry skin Neuro General: oriented to person, oriented to place and oriented to time Extrem Right lower extremity: full ROM, normal capillary refill and edema Left lower extremity: full ROM, normal capillary refill and edema Psych Mental Status: mental status grossly normal Results Reviewed Results Reviewed: Brief summary of venous insufficiency testing is as follows: right great saphenous vein: Positive right small saphenous vein: negative right accessory vein: none present left great saphenous vein: Ablated left small saphenous vein: negative left accessory vein: none present Please note there is no evidence of any venous aneurysms or significant tortuosity Assessment & Plan Assessment & Plan (1) Varicose veins of right lower extremity with inflammation: Code(s): I83.11 - Varicose veins of right lower extremity with inflammation Category: Medical Plan: This patient has varicose veins with inflammation. They continue to be a source of discomfort for the patient. The patient has tried conservative treatment with compression, leg elevation and exercise program for over 3 months time. They have been compliant with all treatment. This has provided minimal relief for the patient. I do not anticipate this course of treatment will alter the underlying etiology. The patient has been scheduled for lower extremity venous treatment inclusive of --- right great saphenous vein radiofrequency ablation. Risks, benefits, and complications of this procedure has been discussed in detail with the patient including but not limited to bleeding, infection, and the development of a DVT. The patient has demonstrated a clear understanding and has consented. We will schedule the patient as soon as possible. Thank you for allowing us to participate in this patient's care. If there are any questions or concerns please do not hesitate to contact us. Coding Level of Care Code Est Pt Level 4 (54832) Diagnoses Varicose veins of right lower extremity with inflammation I83.11
--- OUTSIDE RECORDS SUMMARY | 2024-11-24 11:48 | XMS_ITS | Patient Health Record ---
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 Name Role Phone Abhijeet Izabeladarsh Primary Care Provider Unavailabl e Black, Petrona Unavailable [phone] Allergies Allergen (clinical drug ingredient) Drug/Non Drug [...] Status Risk Notes Problem Ulcer of toe (594999825) Non-pressure chronic ulcer of other part of right foot limited to breakdown of skin (L97.511) Active confirmed Problem Acquired hammer toe of right foot (8746732243844 105) Other hammer toe(s) (acquired), right foot (M20.41) Active confirmed Problem Acquired hammer toe of left foot (6486571359793 103) Other hammer toe(s) (acquired), left foot (M20.42) Active confirmed Plan Of Treatment Pending Test Test Name Order Date 94480- Debride <25 sq cm 02/23/2022 37106 I&D ABSCESS- SIMPLE,SINGLE 022 Insurance Providers Payer Name Payer Address Payer Phone Subscriber Number Group Number Insured Name Patient Relationship to Insured Coverage Start Date Coverage End Date [facility] [address] [place] [address] [phone] [id number] Adina Garnett Self - patient is the insured Medical (General) History Medical History History ICD Code Congestive heart failure Reflux ( GERD) Hypercholesterolemia Hypertension Cardiomyopathy PCOS type II diabetes Anemia covid-19 Cholesterol Back,Hip,and Knee pain Chicken pox blood clots Surgical History Surgery Date(Month/Year)
== END 2024-11-24 10:38 | disposition home or self-care (01) ==
LOC: HO.HVS 10:06
PROVIDERS: PCP Internal Medicine; Visit Provider Surgery Vascular Surgery
DX: I83.11 Varicose veins of right lower extremity with inflammation (principal)
CPT/HCPCS: 99214

== ENCOUNTER 2024-12-04 09:18 | Outpatient (AMB) | payer OTHER, SELFPAY ==
--- OUTSIDE RECORDS SUMMARY | 2024-12-04 09:28 | XMS_ITS | Patient Health Record ---
Author Organization [facility] Address [address] [place] [address] Care Team Providers Care Utility Spray Operator Name Role Phone Abhijeet Izabeladarsh Primary Care Provider Unavailabl e Black, Petrona Unavailable [phone] Allergies Allergen (clinical drug ingredient) Drug/Non Drug [...] Status Risk Notes Problem Ulcer of toe (992522470) Non-pressure chronic ulcer of other part of right foot limited to breakdown of skin (L97.511) Active confirmed Problem Acquired hammer toe of right foot (1814010817833 105) Other hammer toe(s) (acquired), right foot (M20.41) Active confirmed Problem Acquired hammer toe of left foot (0290938361486 103) Other hammer toe(s) (acquired), left foot (M20.42) Active confirmed Plan Of Treatment Pending Test Test Name Order Date 67998- Debride <25 sq cm 02/23/2022 56946 I&D ABSCESS- SIMPLE,SINGLE 022 Insurance Providers Payer Name Payer Address Payer Phone Subscriber Number Group Number Insured Name Patient Relationship to Insured Coverage Start Date Coverage End Date [facility] [address] [place] [address] [phone] [id number] Adina Garnett Self - patient is the insured Medical (General) History Medical History History ICD Code Congestive heart failure Reflux ( GERD) Hypercholesterolemia Hypertension Cardiomyopathy PCOS type II diabetes Anemia covid-19 Cholesterol Back,Hip,and Knee pain Chicken pox blood clots Surgical History Surgery Date(Month/Year)
--- NOTE | 2024-12-04 09:45 | MHC.OFFVIS ---
Intake Visit Reasons: R GSV RFA Accompanied by: Self / Same As Patient Allergies chlorhexidine [From ChloraPrep Clear] Allergy (Mild, Verified 12/04/24 09:45) Rash isopropyl alcohol [From ChloraPrep Clear] Allergy (Mild, Verified 12/04/24 09:45) Rash adhesive Adverse Reaction (Intermediate, Verified 12/04/24 09:45) Rash PFSH Medical History Paresthesias Hypersomnia Snoring History of GI bleed Nonischemic cardiomyopathy PCOS (polycystic ovarian syndrome) Congestive heart failure Obesity (BMI 30-39.9) Ocular migraine Hypertension Hypercholesterolemia GERD (gastroesophageal reflux disease) Surgical History No pertinent past surgical history Family History (Reviewed 12/04/24 @ :46 by Mari Veloz) Mother No problems noted. Father FH: prostate cancer Maternal Grandfather Colon cancer Social History Housing: House Alcohol intake: current Alcohol intake frequency: a few times a month Comment: 2 days weekend 1 glass Patient Tobacco Use Status: Never used Tobacco e-Cigarette/Vaping Use: Never Used Second Hand Smoke Exposure: No service: No Current occupational status: employed Current occupational exposures/hazards: No Cognitive needs: No Hearing needs: No Vision needs: No Female Reproductive History Menstrual Age of Menarche: 15 Office Procedures Vascular Office Procedure Details Details: Diagnosis: Varicose veins with inflammation of right leg Procedure: Endovenous radiofrequency ablation of the right great saphenous vein(s) of the lower extremity. Anesthesia: Local infiltration 5 cc, Tumescent 400 cc. Estimated Blood Loss: minimal Specimen: Varicose veins The patient was transferred to the procedure suite and the insufficient saphenous vein was mapped by ultrasound and diagrammed on the overlying skin. The depth and diameter of the vein(s) to be treated was documented. The varicose tributary veins and suitable access sites were identified and mapped as well. The patient was then positioned supine on the procedure table. The affected limb was prepped and draped in the usual sterile fashion. The RF catheter was placed on the sterile field, flushed and wiped down, prepared, and connected by a sterile cable. The patient was placed in supine position and local anesthesia was instilled in the skin overlying the access site. A skin incision was made overlying the identified and mapped great saphenous vein entry site. The vein was accessed using ultrasound guidance and the Seldinger technique, a guide wire was introduced through the needle, which was then exchanged over the guide wire for a 6F sheath, which was secured in place. The guide wire was removed and the sheath was flushed. The RF catheter was placed into the vein through the sheath and preferentially, imaging was used to place the catheter tip just inferior to the superficial epigastric vein to preserve normal physiological flow in that vein. Additionally, it was confirmed by ultrasound guidance that the catheter tip was also placed a minimum of 1.5cm distal to the saphenofemoral junction. After the RF catheter position was verified by ultrasound, tumescent anesthesia was infiltrated, under ultrasound guidance, precisely into the perivenous compartment along the entire length of vein from the entry site to the saphenofemoral junction until a halo of fluid was noted around the vein. The patient was then placed in supine position to further exsanguinate the superficial venous system. After RF catheter position was again confirmed with ultrasound imaging, and under direct external compression along the length of the heating element, RF energy was applied. The vein was segmentally ablated by heating a 8 cm segment and then indexing the catheter forward by 7.5 cm until the treatment length is completed. Device temperature was maintained at 120 plus or minus 5 degrees C with an initial power level of 40W dropping to below 20W for each treatment. Total vein length treated 40 cm Total cycles of RF 6. Repeat ultrasound of the saphenous vein was performed, confirming successful treatment. The catheter and sheath were withdrawn and hemostasis established with direct pressure. After assuring hemostasis, the skin incision over the saphenous vein was closed with a bandage and a compression wrap, and/ or graduated compression stocking was applied from the level of the foot to the most proximal level of the thigh. 90715 - Endovenous RF, 1st Vein All charges added?: Procedure code (CPT) selection complete Assessment & Plan Assessment & Plan (1) Varicose veins of right lower extremity with inflammation: Comment: 12/04/2024 - right great saphenous vein radiofrequency ablation Code(s): I83.11 - Varicose veins of right lower extremity with inflammation Category: Medical Plan: See op note Coding Level of Care Code Procedure Only Diagnoses Varicose veins of right lower extremity with inflammation I83.11 CPT Codes Details - Vascular 1: 12908 - Endovenous RF, 1st Vein ([id number])
== END 2024-12-04 10:47 | disposition home or self-care (01) ==
LOC: HO.HVS 09:19
PROVIDERS: PCP Internal Medicine; Visit Provider Surgery Vascular Surgery
DX: I83.11 Varicose veins of right lower extremity with inflammation (principal)
CPT/HCPCS: 36475

== ENCOUNTER → 2024-12-04 09:18 | Outpatient (BNVA) | payer OTHER, SELFPAY | PROVIDERS: PCP Internal Medicine; Visit Provider Surgery Vascular Surgery | DX: I83.11 Varicose veins of right lower extremity with inflammation (principal) | CPT/HCPCS: 36475; J2003; J2004 ==

== ENCOUNTER 2024-12-17 10:10 | Outpatient (AMB) | payer OTHER, SELFPAY ==
[2024-12-17 10:12] VITALS: BMI 24.8
--- NOTE | 2024-12-17 10:12 | A.OFFVIS_ITS ---
Vital Signs 12/17/24 10:12 Height 5 ft 9 in Weight 168 lb BMI 24.8 Intake Visit Reasons: 2 week follow up s/p R GSV RFA Intake Note: 2 week followup Right GSV RFA 12/04/24. Pt states leg is feeling good, does state she still has some mild swelling. Left LE is also doing better. Accompanied by: Self / Same As Patient Allergies chlorhexidine [From ChloraPrep Clear] Allergy (Mild, Verified 12/17/24 10:18) Rash isopropyl alcohol [From ChloraPrep Clear] Allergy (Mild, Verified 12/17/24 10:18) Rash adhesive Adverse Reaction (Intermediate, Verified 12/17/24 10:18) Rash HPI HPI 2 week follow up s/p R GSV RFA: Details: Very pleasant 44-year-old female presents for follow-up status post right great saphenous vein ablation. No reactions or interactions this time. Previously when we did her left leg ablation she reacted to the ChloraPrep. She has now nicely recovered from both legs. She reports no pain discomfort. Swelling has decreased. In general she feels well. She is now for follow-up. [facility] Medical History Paresthesias Hypersomnia Snoring History of GI bleed Nonischemic cardiomyopathy PCOS (polycystic ovarian syndrome) Congestive heart failure Obesity (BMI 30-39.9) Ocular migraine Hypertension Hypercholesterolemia GERD (gastroesophageal reflux disease) Surgical History No pertinent past surgical history Family History Mother No problems noted. Father FH: prostate cancer Maternal Grandfather Colon cancer Social History Housing: House Alcohol intake: current Alcohol intake frequency: a few times a month Comment: 2 days weekend 1 glass Patient Tobacco Use Status: Never used Tobacco e-Cigarette/Vaping Use: Never Used Second Hand Smoke Exposure: No service: No Current occupational status: employed Current occupational exposures/hazards: No Cognitive needs: No Hearing needs: No Vision needs: No Female Reproductive History Menstrual Age of Menarche: 15 Review of Systems Const All systems reviewed & are unremarkable except as noted in HPI and below Reports no additional complaints ENT Reports Normal hearing present Card Denies chest pain, Denies chest pain at rest, Denies chest pain with activity and Denies pedal edema Resp Denies cough GI Denies abdominal pain Musc Denies abnormal gait, Denies muscle cramps and Denies radiating pain into limb Skin/Breast Denies skin ulcer and Denies wounds Neuro Reports Normal hearing present and Denies abnormal gait Psych Reports no additional complaints Physical Exam Vital Signs: BMI result Body Mass Index 24.8 Const General: cooperative, healthy appearing and comfortable Orientation/consciousness: oriented to person, oriented to place and oriented to time HEENT Head: Yes normal to inspection Neck Neck: Yes normal visual inspection Carotids: no bruits Chest Chest palpation & inspection: normal inspection of the chest Resp Effort & Inspection: normal respiratory effort and able to speak in complete sentences Auscultation: clear to auscultation bilaterally, no crackles, no rales, no rhonchi and no wheezes Cardio Rate: regular rate Rhythm: regular rhythm Heart sounds: S1 normal heart sound present and S2 normal heart sound present Bruits: no carotid bruits Peripheral pulses: Peripheral pulses 2+ throughout GI Inspection: Yes normal to inspection Skin Wounds: no wounds Hair: normal Neuro General: oriented to person, oriented to place and oriented to time Cranial nerves: Yes CN's II-XII intact bilaterally and Yes Normal hearing present Cognition (Neuro): normal cognition Motor exam (neuro): 5/5 motor strength present throughout Extrem Other: venous exam: No significant superficial varicosities or spider telangiectasias, minimal edema General: No clubbing, No cyanosis and No edema Psych Appearance: grossly normal Mental Status: mental status grossly normal Speech and movement: Normal speech and movement present Assessment & Plan Assessment & Plan (1) Varicose veins of left lower extremity with inflammation: Comment: 10/09/2024 - left great saphenous vein radiofrequency ablation Code(s): I83.12 - Varicose veins of left lower extremity with inflammation Category: Medical Plan: See below (2) Varicose veins of right lower extremity with inflammation: Comment: 12/04/2024 - right great saphenous vein radiofrequency ablation Code(s): I83.11 - Varicose veins of right lower extremity with inflammation Category: Medical Plan: The patient has done extremely well with all venous treatments. Patient's may often experience postprocedure phlebitic episodes and I have discussed with the patient use of warm compresses and NSAIDS if tolerated for pain discomfort. In addition, I have discussed continued conservative measures including use of compression, leg elevation, and exercise. The patient was also given an information sheet regarding appropriate use of compression stockings and future purchases. Thank you for allowing us to care for your patient with venous disease. Coding Level of Care Code Est Pt Level 3 (74122) Diagnoses Varicose veins of left lower extremity with inflammation I83.12 Varicose veins of right lower extremity with inflammation I83.11
--- OUTSIDE RECORDS SUMMARY | 2024-12-17 11:19 | XMS_ITS | Patient Health Record ---
[facility] Organization [facility] Address [address] [place] [address] Care Team Providers Care Commercial Account Executive Name Role Phone Abhijeet Izabeladarsh Primary Care Provider Unavailabl e Black, Petrona Unavailable [phone] Allergies Allergen (clinical drug ingredient) Drug/Non Drug [...] Status Risk Notes Problem Ulcer of toe (516433073) Non-pressure chronic ulcer of other part of right foot limited to breakdown of skin (L97.511) Active confirmed Problem Acquired hammer toe of right foot (0827151343019 105) Other hammer toe(s) (acquired), right foot (M20.41) Active confirmed Problem Acquired hammer toe of left foot (4520334416774 103) Other hammer toe(s) (acquired), left foot (M20.42) Active confirmed Plan Of Treatment Pending Test Test Name Order Date 23762- Debride <25 sq cm 02/23/2022 25894 I&D ABSCESS- SIMPLE,SINGLE 022 Insurance Providers Payer Name Payer Address Payer Phone Subscriber Number Group Number Insured Name Patient Relationship to Insured Coverage Start Date Coverage End Date [facility] [address] [place] [address] [phone] [id number] Adina Garnett Self - patient is the insured Medical (General) History Medical History History ICD Code Congestive heart failure Reflux ( GERD) Hypercholesterolemia Hypertension Cardiomyopathy PCOS type II diabetes Anemia covid-19 Cholesterol Back,Hip,and Knee pain Chicken pox blood clots Surgical History Surgery Date(Month/Year)
== END 2024-12-17 10:42 | disposition home or self-care (01) ==
LOC: HO.HVS 10:11
PROVIDERS: PCP Internal Medicine; Visit Provider Surgery Vascular Surgery
DX: I83.12 Varicose veins of left lower extremity with inflammation (principal); I83.11 Varicose veins of right lower extremity with inflammation
CPT/HCPCS: 99213

== ENCOUNTER 2024-12-25 11:18 | Outpatient (AMB) | payer OTHER, SELFPAY ==
--- OUTSIDE RECORDS SUMMARY | 2024-12-25 11:40 | XMS_ITS | Patient Health Record ---
Author Organization [facility] Address [address] [place] [address] Care Team Providers Care Executive Chef Name Role Phone Abhijeet Izabeladarsh Primary Care Provider Unavailabl e Black, Petrona Unavailable [phone] Allergies Allergen (clinical drug ingredient) Drug/Non Drug [...] Status Risk Notes Problem Ulcer of toe (643356287) Non-pressure chronic ulcer of other part of right foot limited to breakdown of skin (L97.511) Active confirmed Problem Acquired hammer toe of right foot (4960545460508 105) Other hammer toe(s) (acquired), right foot (M20.41) Active confirmed Problem Acquired hammer toe of left foot (3037725776838 103) Other hammer toe(s) (acquired), left foot (M20.42) Active confirmed Plan Of Treatment Pending Test Test Name Order Date 48370- Debride <25 sq cm 02/23/2022 38246 I&D ABSCESS- SIMPLE,SINGLE 022 Insurance Providers Payer Name Payer Address Payer Phone Subscriber Number Group Number Insured Name Patient Relationship to Insured Coverage Start Date Coverage End Date [facility] [address] [place] [address] [id number] Adina Garnett Self - patient is the insured Medical (General) History Medical History History ICD Code Congestive heart failure Reflux ( GERD) Hypercholesterolemia Hypertension Cardiomyopathy PCOS type II diabetes Anemia covid-19 Cholesterol Back,Hip,and Knee pain Chicken pox blood clots Surgical History Surgery Date(Month/Year)
--- NOTE | 2024-12-25 11:49 | A.OFFVIS_ITS ---
Vital Signs 12/25/24 11:50 Height 5 ft 9 in Weight 161 lb BMI 23.8 BP 90/60 Intake Visit Reasons: [employer] annual exam Intake Note: No concerns Customs And Border Protection Officer Required: No Information Interpreted: non-clinical & clinical Quality Assurance Consultant: Quality Assurance Consultant Present (Jessenia Markham) Accompanied by: Self / Same As Patient Allergies chlorhexidine [From ChloraPrep Clear] Allergy (Mild, Verified 12/25/24 11:51) Rash isopropyl alcohol [From ChloraPrep Clear] Allergy (Mild, Verified 12/25/24 11:51) Rash adhesive Adverse Reaction (Intermediate, Verified 12/25/24 11:51) Rash Medication List - Last Reconciled 12/25/24 by Natalya Quiñonez CNM biotin 1 mg PO DAILY PRN carvedilol 12.5 mg (1/2 x 25 mg) PO BID 90 days cetirizine (Zyrtec) 10 mg PO DAILY PRN fluticasone propionate 50 mcg/actuation 1 spray intranasal Q12H gabapentin 100 mg PO BEDTIME lactobacillus combination no.4 (Probiotic) 3,000 mmu cells PO DAILY losartan 25 mg PO DAILY 90 days metformin 500 mg PO DAILY multivitamin 1 tab PO DAILY pantoprazole 40 mg PO DAILY 90 days simvastatin 10 mg PO BEDTIME 30 days spironolactone 25 mg PO DAILY 90 days tirzepatide 15 mg (0.5 mL) subcut QWEEK 90 days Is last menstrual period known: Yes Last menstrual period: 11/01/24 HPI HPI [employer] annual exam: Details: 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 She is not having any hop worker concerns at all. She had been diagnosed with PCOS as a younger person with irregular periods and was managed with OCPs and then medication that she would take if she missed a period (Provera) and she has not needed to be on anything in a long time because she lost a lot of weight a couple of years ago with Mounjaro and eating healthy and she is feeling so much better and her hemoglobin A1c has improved she was diagnosed as prediabetic and things are much improved. 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 She has gone for some genetic testing and there is a gene that maybe involved. So far things are good and she does follow-up with Cardiology she is up-to-date on her mammograms she is generally not sexually active in the last time was a few months ago and she even doubled condoms has no concerns about STDs. She has not missed a period in a long time accept for November but she is not particularly worried about it she has gained back any weight recently either. She walks for exercise and tries to stay active and does extra stairs when she can. [facility] Medical History Paresthesias Hypersomnia Snoring History of GI bleed Nonischemic cardiomyopathy PCOS (polycystic ovarian syndrome) Congestive heart failure Obesity (BMI 30-39.9) Ocular migraine Hypertension Hypercholesterolemia GERD (gastroesophageal reflux disease) Surgical History No pertinent past surgical history Family History Mother No problems noted. 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 Current occupational exposures/hazards: No Sexual orientation: Straight/Heterosexual Gender identity: Female Cognitive needs: No Hearing needs: No Vision needs: No Female Reproductive History Menstrual Age of Menarche: 15 Date of last menstrual period: 11/01/24 control method: none Total pregnancies: 0 Date of last pap smear: 02/01/21 Date of Mammogram: 08/21/24 Physical Exam Vital Signs: Last Vital Signs BP 90/60 12/25/24 11:50 BMI result Body Mass Index 23.8 Const General: healthy appearing, comfortable, no acute distress, well developed and alert Nutritional Appearance: average body habitus Orientation/consciousness: patient oriented x3 Limitations: no limitations HEENT Head: Yes normocephalic Neck Neck: Yes normal visual inspection Chest Chest palpation & inspection: normal inspection of the chest Breast/axilla inspection: normal inspection of the breasts and normal inspection of the axillae Breast/axilla palpation: normal palpation of the breasts and normal palpation of the axillae Resp Effort & Inspection: normal respiratory effort GI Inspection: Yes normal to inspection, No Abdominal wall edema and No distended Palpation (GI): Soft to palpation and nontender Other: Normal external appearance vagina pink and moist with very normal-appearing whitish mucus cervix nulliparous pink smooth mobile nontender uterus is midposition small nontender adnexa nontender good muscle tone with Kegel. General: Yes bladder normal to palpation External Female Exam: normal external appearance and normal appearance of the urethra Speculum Exam - Vagina: normal appearance of the vagina, normal palpation and normal vaginal discharge Speculum Exam - Cervix: normal appearance of the cervix, normal palpation and nontender Bimanual exam- vagina & uterus: normal bimanual exam, normal palpation, uterine size normal, bladder normal to palpation, consistency normal, normal palpation, uterine mobility normal, uterine shape normal, No Cervical tenderness present, non-tender and no cervical motion tenderness Bimanual Exam- Adnexa, other: normal adnexae, no masses, normal and No adnexal tenderness Neuro General: patient oriented x3 Results Reviewed Results Reviewed: Name: Adina Lees Age/Sex: 40/F Attending: Eliseo Jha MD : 1980 Submitted by: Linsey Verma MD Copies to: Eliseo Jha MD MR #: [id number] Status: DEP REF Collected: 01/31/21 Location: .LAB Received: 02/01/21 Interpretation Satisfactory for evaluation. Negative for intraepithelial lesion or malignancy. HPV mRNA E6/E7: NOT DETECTED This assay detects E6/E7 viral messenger RNA (mRNA) from 14 high-risk HPV types (16, 18, 31, 33, 35, 39, 45, 51, 52, 56, 58, 59, 66, 68) HPV testing performed by [facility], [place], [place]. See reference sheria sridevi portion of the EMR for entire report. Clinical Information LMP: 01/31/21 Previous PAP test: Unknown Date, WNL Material Received ThinPrep Cervical Copies To Linsey Verma MD [address] [place] [address] [address] [place] [address] Eliseo Jha MD [address] [place] [address] [address] [place] [address] Electronically Signed By: WILLIMA Rascon ([facility]) 02/14/21 1052 The Pap Test is a screening procedure with the inherent possibility of both false negative and false positive results. Results should be interpreted in the context of historic and current clinical findings. Reliability of the Pap Test is enhanced by performing the test on a regular repetitive basis. Patient: Page 1 of 1 Assessment & Plan Assessment & Plan (1) Encounter for annual routine gynecological examination: Code(s): Z01.419 - Encounter for gynecological examination (general) (routine) without abnormal findings Category: Medical (2) PCOS (polycystic ovarian syndrome): Code(s): E28.2 - Polycystic ovarian syndrome Category: Medical (3) Type 2 diabetes mellitus with hyperglycemia: Comment: 12/25/2024 patient informed me she thought she was prediabetic at this point. (has lost weight and improved hemoglobin a 1 C) Code(s): E11.65 - Type 2 diabetes mellitus with hyperglycemia Category: Medical (4) Nonischemic cardiomyopathy: Comment: January 2013 EF 61%, April 2018 EF 59% June 2020 echocardiogram ejection fraction 53% normal left ventricular activity October 2022. Normal LV systolic function with very mild asymmetric septal hypertrophy with grade 1 diastolic dysfunction 2. Normal cardiac valvular Doppler 3. No gross pericardial effusion Code(s): I42.8 - Other cardiomyopathies Category: Medical (5) Missed menses: Code(s): N92.6 - Irregular menstruation, unspecified Category: Medical (6) control counseling: Code(s): Z30.09 - Encounter for other general counseling and advice on contraception Category: Medical (7) Breast cancer screening: Code(s): Z12.39 - Encounter for other screening for malignant neoplasm of breast Category: Medical Plan -----Discussed in this visit the following: healthy balanced diet, regular and consistent exercise, getting recommended health screens, doing the best she can for her particular health concerns, kegel exercises, pap smear screening and followup recommendations, mammography screening and SBE, normal changes in cycles in her life stage--- . She is up-to-date on her mammograms. Her Pap smear will be due next year. She had no concerns at all about STIs as she was so careful so they were not necessary either. Discussed the missed menses she has missed menses often as a younger person and when she was heavier related to the PCOS. She is just missed 1 periods so far so if she is approaching 3 months without a. I recommend she call and we would consider providing Provera to bring on a withdrawal bleed and discuss follow-up from then on. She is doing very well with her health right now she is very glad she lost the weight with the Mounjaro and is continuing on it. She is very aware of all of her health concerns and so far all is stable and she is keeping up with any screenings and follow-up as necessary. She provided me with lots of Education about her particular health issues related to the cardiomyopathy and the veins and the possible genetic component. I wished her continuing good health we will see her next year. She follows regularly with Dr. Jha. Coding Level of Care Code Est Pt Prev Care 40-64y(67223) Diagnoses Encounter for annual routine gynecological examination Z01.419 PCOS (polycystic ovarian syndrome) E28.2 Type 2 diabetes mellitus with hyperglycemia E11.65 Nonischemic cardiomyopathy I42.8 Missed menses N92.6 control counseling Z30.09 Breast cancer screening Z12.39
[2024-12-25 11:50] VITALS: BP 90/60; BMI 23.8
== END 2024-12-25 13:09 | disposition home or self-care (01) ==
LOC: HO.HWS 11:18
PROVIDERS: PCP Internal Medicine; Visit Provider Advanced Practice Midwife
DX: Z01.419 Encounter for gynecological examination (general) (routine) without abnormal findings (principal); E28.2 Polycystic ovarian syndrome; E11.65 Type 2 diabetes mellitus with hyperglycemia; I42.8 Other cardiomyopathies; N92.6 Irregular menstruation, unspecified; Z30.09 Encounter for other general counseling and advice on contraception; Z12.39 Encounter for other screening for malignant neoplasm of breast
CPT/HCPCS: 99396; 99459

== ENCOUNTER 2025-03-02 07:55 | Outpatient (AMB) | payer OTHER, SELFPAY ==
--- OUTSIDE RECORDS SUMMARY | 2025-03-02 07:58 | XMS_ITS | Patient Health Record ---
[facility] Address [address] [place] [address] Care Team Providers Care Orthotist Or Prosthetist Name Role Phone Abhijeet Izabeladarsh Primary Care Provider Unavailabl e Black, Petrona Unavailable [phone] Allergies Allergen (clinical drug ingredient) Drug/Non Drug Allergy documented on EMR Reaction Allergy Type Onset Date Status Adhesive redness/itching Allergy Acti ve Reason For Referral No Information Medications Medication SIG (Take, Route, Frequency, Duration) Notes Start Date End Date Status metFORMIN HCl 500 MG 1 tablet with a rafaela l Orally Once a day; Duration: 30 day(s) Active Multivitamin - 1 tablet Orally Once a day; Duration: 30 day(s) Active Pantoprazole Sodium 40 MG 1 tablet Orall y Once a day; Duration: 30 day(s) Active Simvastatin 5 MG 1 tablet in the even ing Orally Once a day; Duration: 30 day(s) Active Spironolactone 25 MG 1 tablet Orally; Du ration: 30 day(s) Active Cephalexin 500 MG 1 capsule Orally twi ce a day; Duration: 10 days 02/02/2022 Active Biotin 1 MG as directed Orally Active Carvedilol 25 MG 1 tablet with food O rally Twice a day; Duration: 30 day(s) Active Cetirizine HCl 10 MG 1 tablet Orally Onc e a day; Duration: 30 day(s) Active Flonase Active Lactobacillus Active Losartan Potassium 100 MG 1 tablet Orall y Once a day; Duration: 30 day(s) Active Social History Tobacco Use: [...] Problem Status W/U Status Risk Notes Problem Non-pressure chronic ulcer of other part of right foot limited to breakdown of skin (L97.511) Active confirmed Problem Acquired hammer toe of right foot (9373248946657 105) Other hammer toe(s) (acquired), right foot (M20.41) Active confirmed Problem Acquired hammer toe of left foot ([id number] 103) Other hammer toe(s) (acquired), left foot (M20.42) Active confirmed Plan Of Treatment Pending Test Test Name Order Date 56738- Debride <25 sq cm 02/23/2022 52539 I&D ABSCESS- SIMPLE,SINGLE 022 Insurance Providers Payer Name Payer Address Payer Phone Subscriber Number Group Number Insured Name Patient Relationship to Insured Coverage Start Date Coverage End Date [facility] [address] [place] [address] [phone] [id number] Adina Garnett Self - patient is the insured Medical (General) History Medical History History ICD Code Congestive heart failure Reflux ( GERD) Hypercholesterolemia Hypertension Cardiomyopathy PCOS type II diabetes Anemia covid-19 Cholesterol Back,Hip,and Knee pain Chicken pox blood clots Surgical History Surgery Date(Month/Year)
[2025-03-02 08:08] VITALS: BP 90/62; PULSE 77; BMI 24.2
--- NOTE | 2025-03-02 08:08 | A.OFFVIS_ITS ---
Vital Signs 03/02/25 08:08 Height 5 ft 9 in Weight 164 lb BMI 24.2 BP 90/62 Blood Pressure Location Rt brachial Position Sitting Pulse 77 Pulse Source Pulse Oximeter Intake Visit Reasons: follow up Intake Note: Numbness in legs in arms- currently has it at the moment. Offset Press Assistant Required: No Accompanied by: Self / Same As Patient Allergies chlorhexidine (From ChloraPrep Clear) Allergy (Mild, Verified 03/02/25 08:11) Rash isopropyl alcohol (From ChloraPrep Clear) Allergy (Mild, Verified 03/02/25 08:11) Rash adhesive Adverse Reaction (Intermediate, Verified 03/02/25 08:11) Rash Medication List - Last Reconciled 03/02/25 by DANDRE Landaverde biotin 1 mg PO DAILY PRN carvedilol 12.5 mg (1/2 x 25 mg) PO BID 90 days cetirizine (Zyrtec) 10 mg PO DAILY PRN fluticasone propionate 50 mcg/actuation 1 spray intranasal Q12H gabapentin 100 mg PO BEDTIME lactobacillus combination no.4 (Probiotic) 3,000 mmu cells PO DAILY losartan 25 mg PO DAILY 90 days metformin 500 mg PO DAILY multivitamin 1 tab PO DAILY pantoprazole 40 mg PO DAILY 90 days simvastatin 10 mg PO BEDTIME 30 days spironolactone 25 mg PO DAILY 90 days tirzepatide 15 mg (0.5 mL) subcut QWEEK 90 days HPI Comments Details: 44-yr-old female presents for f/u visit. She underwent BLE varicose vein repair in Sep and December, which did not seem to help w/ her BLE L > R numbness, BLE tingling, BLE cramping, BLE R>L swelling. Her vit b6, B1, zinc levels have normalized. Pt reports she continues to have intermittent episodes of BLE L > R, which can last all day but the intensity of the numbness varies. It can feel like a stripe of numbness form the left hip/buttock through the foot. This seems to be worse when she has her menstrual cycle. She can also have sacral numbness and discomfort if she sits too long on something hard. She continues to have episodes of BLE leg cramps, more at rest and worse at night. She can feel the ground when she walks. No weakness. She did PT- who identified chintan hip tightness- and she continues the exercises at home. She notes increased BUE numbness. She continues to wake up with both arms feeling numb, and then has residual numbness in the arms. May have tingling in her wrists if she holds her phone for a long time. 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 Denies weakness- but may drop/throw things such as bottle caps or the covers to her contact holders. She has increased her fluid intake. She stopped Nervive and the Mag. She has an appt w/ ENT on 05/06- to discuss alternate tx options for her mild SERVANDO, snoring, nasal congestion, h/o frequent sinus infections. She does usually sleeps on her side. Laboratory Tests 01/01/24 07/21/24 11/06/24 14:02 15:40 11:36 Vitamin B1 50 H 30 Vitamin B6 70.6 H 39.3 H 14.7 Vitamin B12 615 25-OH Vitamin D Total 61.8 Folate 15.5 TSH 0.95 Free T4 1.29 Zinc 66 Previous work-up: 09/23/2023, HST: AHI 5.0 per hour, O2 chris 83%, SpO2 less than 90% x's 0.4 minutes of study, under 88% x's 1.1 minutes 10/23/23, BLE EMG/NCS: -There is electrodiagnostic evidence for distal sensorimotor polyneuropathy, primarily axonal features. -There is no electrodiagnostic evidence for lumbosacral plexopathy or lumbar radiculopathy. Possibly slightly progressed since last year. 11/15/23 01/01/24 02/05/24 11:56 14:02 09:32 WBC 9.8 RBC 4.60 Hgb 13.9 Hct 39.6 Plt Count 311 ESR 8 Sodium 139 Potassium 4.2 Chloride 103 Carbon Dioxide 26 Anion Gap 14 BUN 16 Creatinine 0.77 Hemoglobin A1c % 4.7 Calcium 9.9 D Magnesium 1.9 Iron 111 TIBC 285 % Saturation 39 Unsat Iron Binding 174 Ferritin 160 Total Bilirubin 1.0 AST 14 ALT 14 Alkaline Phosphatase 38 L Total Creatine Kinase 31 C-React Prot High Sens 0.8 Total Protein 7.5 Albumin 4.4 Vitamin B1 50 H Vitamin B2 31.5 Nicotinic Acid <20 Nicotinamide 23 Pantothenic Acid 108 Vitamin B6 70.6 H Vitamin B12 852 25-OH Vitamin D Total 66.7 Rheumatoid Factor < 13.0 BOZENA Screen NEGATIVE PFSH Medical History Paresthesias Hypersomnia Snoring History of GI bleed Nonischemic cardiomyopathy PCOS (polycystic ovarian syndrome) Congestive heart failure Obesity (BMI 30-39.9) Ocular migraine Hypertension Hypercholesterolemia GERD (gastroesophageal reflux disease) Surgical History No pertinent past surgical history Family History Mother No problems noted. 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 Current occupational exposures/hazards: No Sexual orientation: Straight/Heterosexual Gender identity: Female Cognitive needs: No Hearing needs: No Vision needs: No Female Reproductive History Menstrual Age of Menarche: 15 Physical Exam Vital Signs: Last Vital Signs Pulse 77 03/02/25 08:08 BP 90/62 03/02/25 08:08 BMI result Body Mass Index 24.2 Const General: cooperative and no acute distress Orientation/consciousness: patient oriented x3 Resp Effort & Inspection: normal respiratory effort and able to speak in complete sentences Neuro Other: Bilateral wrist Tinel, Phalen, medial compression test negative Bilateral take cubital compression and tunnel-positive, elicits discomfort Bilateral hand grasps and 1st 2nd pinch strength symmetric 5/5 Mild BLE right greater than left swelling General: patient oriented x3 and deep tendon reflexes 2+ bilaterally Cranial nerves: Yes CN's II-XII intact bilaterally Cognition (Neuro): normal cognition Gait exam (Neuro): Normal gait present Motor exam (neuro): 5/5 motor strength present throughout Extrem Other: BLE R > L distal non-pitting edema. BLE feet are cold to the touch, ankles are warm to the touch. Unable to appreciate BLE pedal pulses. No skin lesions, discolorations. RLE rests in mild varus- pt had not noticed. 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 Interval vit B1/B6, zinc have normalized. Resume OTC Magnesium 400 mg q.h.s. for leg cramps. Trial OTC alpha lipoic acid 600 mg daily. For now, continue to hold OTC nervive nerve relief supplement, as this contains small amounts of vitamin-B supplements. Continue PT exercises For BUE paresthesias: Patient has not yet tried- OTC BUE carpal tunnel splints while sleeping. Patient advised to undergo BUE EMG/NCS. For mild SERVANDO: HST were consistent with very mild obstructive sleep apnea with transient nocturnal hypoxemia. Patient has a history of nasal and sinus congestion, remote history of frequent sinus infections. ENT consult as scheduled- for alternate treatments for sleep apnea. In the meantime, avoid sleeping in supine position. Will follow-up upon review of above and patient to follow-up in clinic in 6 months or sooner prn. 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
== END 2025-03-02 08:51 | disposition home or self-care (01) ==
LOC: HO.HSMS 07:55
PROVIDERS: PCP Internal Medicine; Visit Provider Nurse Practitioner Family
DX: G47.33 Obstructive sleep apnea (adult) (pediatric) (principal); R20.2 Paresthesia of skin; R25.2 Cramp and spasm; G62.0 Drug-induced polyneuropathy; T45.2X5A Adverse effect of vitamins, initial encounter; R20.0 Anesthesia of skin; M79.89 Other specified soft tissue disorders
CPT/HCPCS: 99214

== ENCOUNTER 2025-03-19 14:46 | Outpatient (AMB) | payer OTHER, SELFPAY ==
--- OUTSIDE RECORDS SUMMARY | 2025-03-19 14:50 | XMS_ITS | Patient Health Record ---
[facility] Address [address] [place] [address] Care Team Providers Care Chief Dog License Inspector Name Role Phone Abhijeet Izabeladarsh Primary Care Provider Unavailabl e Black, Petrona Unavailable [phone] Allergies Allergen (clinical drug ingredient) Drug/Non Drug [...] Problem Acquired hammer toe of right foot ([id number] 105) Other hammer toe(s) (acquired), right foot (M20.41) Active confirmed Problem Acquired hammer toe of left foot ([id number] 103) Other hammer toe(s) (acquired), left foot (M20.42) Active confirmed Plan Of Treatment Pending Test Test Name Order Date 51437- Debride <25 sq cm 02/23/2022 97276 I&D ABSCESS- SIMPLE,SINGLE 022 Insurance Providers Payer Name Payer Address Payer Phone Subscriber Number Group Number Insured Name Patient Relationship to Insured Coverage Start Date Coverage End Date [facility] [address] [place] [address] [id number] Adina Garnett Self - patient is the insured Medical (General) History Medical History History ICD Code Congestive heart failure Reflux ( GERD) Hypercholesterolemia Hypertension Cardiomyopathy PCOS type II diabetes Anemia covid-19 Cholesterol Back,Hip,and Knee pain Chicken pox blood clots Surgical History Surgery Date(Month/Year)
--- OUTSIDE RECORDS SUMMARY | 2025-03-19 14:50 | XMS_ITS | Clinical Summary ---
Author Organization [facility] Address [facility] [place] [address] Care Team Providers Care Rod Hanger Name Role Phone Eliseo Jha MD Primary Care Provider Allergies No known active allergies Medications loratadine (CLARITIN) 10 mg tablet Take 10 mg by mouth daily as needed. Active pantoprazole (PROTONIX) 40 mg Tablet, Delayed Release (E.C.) Take 40 mg by mouth daily. Active multivitamin (THERAGRAN) Tablet Take 1 tablet by mouth daily. Active L.ACID/L.CASEI/B.BI F/B.SANTIAGO/FOS (PROBIOTIC BLEND ORAL) Take 1 tablet by mouth as needed. Active spironolactone (Aldactone) 25 mg Tablet Take 1 tablet by mouth daily. 90 tablet 3 2 Active carvediloL (Coreg) 25 mg TabletIndications:N on-ischemic cardiomyopathy Take 1 tablet by mouth 2 times daily (with meals). 180 tablet 1 2 Active losartan (COZAAR) 100 mg TabletIndications:N on-ischemic cardiomyopathy Take 1 tablet by mouth daily. 90 tablet 1 2 Active Active Problems Problem Noted Date Diagnosed Date H/O: UGI bleed 07/05/2020 Overview (07/05/2020): UGI bleed 2013 S/p EDG and cauterized/clipping Assessment & Plan (07/05/2020 11:06 AM EST): No recurrence Non-ischemic cardiomyopathy 12/13/2010 Overview (07/05/2020): Dilated cardiomyopathy - diagnosed 12/17, with severe LV dysfunction, non- ischemic, ? post viral. a. Index EF- 15% 12/29/07 LV=6.0/5.7 cm. b. R/L cardiac cath 12/31/07. RA=16/14, mean 11 mmHg RV=45/17, PA=45/20, mean 30 mmHg; PCWP 19/16, mean 14 mmHg, cardiac index=2.02, PA saturation 57%, normal coronary arteries c. Cardiac MRI 01/02/08 LVEF=24%, RVEF=22%, no active myocardial inflammation, iron loading, or pericardial disease with 1+ mitral regurgitation. d. Echo 02/17/08 - EF=45%, PASP 28 mmHg EF=55-60% 04/26/08 EF=50-55% 07/29/08 EF=60% 01/26/09 ? Apical thrombus - placed on Coumadin x3 months, discontinued. EF= 45-50% 02/09/10 LV=4.1/3cm No LAE EF= 50% 06/15/10 LV=4.5/3.2 cm No LAE EF= 55% 12/20 LV=3.8/2.8 cm EF ~55% 12/21 LV=NM EF =61% 01/22 LV= 4.6/2.4 cm EF =55% 03/25 LV =4.0 cm EF =49% 04/26 LV= 4.7/2.8 cm EF =60% 12/25 LV= 4.3/3.0 cm EF= 59% 02/08/17 LV= 4.6/2.4 cm EF= 59% 04/17/18 LV= 4.2/2.6 cm GLS= -13.6% EF =59% 06/28/19 LV= 3.9 EF =53% LV =3.74 cm e. Endomyocardial biopsy showing no evidence of amyloid, iron,inflammation, or viral inclusions. EM - myocyte hypertrophy, no new findings of inclusions. f. Normal SPEP, UPEP, CPK/Troponin. Fe=29, ZANA level=4, normal thyroid function tests with mildly elevated T4. Negative adeno, Coxsackie B, hepatitis B antigen, antibody, hepatitis A, hepatitis C, Lyme antibody, HIV, and HSV. g. IgG/IgM - positive parvo IgG, VCA IgG, CMV IgG, VMA and metanephrines, low vitamin D=15. h. Functional class as above Assessment & Plan (07/05/2020 11:08 AM EST): Stable, similar LVEF (59-->53%) Assessment & Plan (07/05/2020 10:16 AM EST): Stable LVEF, slightly lower EF=59%-->53%, no change in LV dimensions. Assessment & Plan (06/18/2019 2:31 PM EST): History of acute decompensated heart failure and cardia myopathy with severe LV systolic dysfunction,? Inflammatory, recovered LVEF on guideline based medical therapy Normal cardiac structure and function, no changes in medical regimen Continue ongoing surveillance for recurrence of cardiomyopathy Assessment & Plan (04/17/2018 11:25 AM EDT): Persistent recovered LVEF, with better BP control, with no change compared to prior, although GLS is slightly low for the recorded LVEF. Assessment & Plan (02/08/2017 1:17 PM EDT): Well preserved LV function, stable LVEF and LV dimensions. Assessment & Plan (06/21/2016 8:41 PM EST): Improved LV function on most recent echo 12/25 Assessment & Plan (12/22/2015 12:07 PM EDT): Stable, low normal Assessment & Plan (04/21/2015 3:10 PM EDT): Borderline LV function, EF=49% Hypertensive today, despite medications Assessment & Plan (03/18/2014 4:06 PM EDT): Stable LVEF BP elevated Assessment & Plan (08/20/2013 2:00 PM EST): Stable, slightly improved LVEF compared to prior studies currently on carvedilol and losartan which she tolerates well. No decompensated heart failure Well-controlled blood pressure Assessment & Plan (12/24/2011 2:32 PM EDT): Stable LVEF on today's echo, formal report pending Assessment & Plan (07/06/2011 11:55 AM EST): Stable LVEF= 55% Echo 12/2010 Assessment & Plan (12/13/2010 11:46 AM EDT): EF stable ~ 50-55% LV not dilated Will continue coreg and losartan Heart failure, acute systolic 12/13/2010 Overview (02/08/2017): 1. Heart Failure manifested by remote ADHF 12/30/07 - subacute/acute presentation, 12/17, related to newly diagnosed DCM. Clinical Wet/Warm or luke warm subset, with hypertension. Normal renal function, Na+ improved with medical Rx. a. On moderate dose carvedilol, limited by HR/BP. b. Index EF =15% with apical thrombus--> normalized LV dimensions and improved LV function. c. NSR with normal QRS. d. AHA/ACC Stage C--> B NYHA FTC IIIB-->I-II->I Assessment & Plan (07/05/2020 10:50 AM EST): Appears well compensated and euvolemic Assessment & Plan (07/05/2020 10:16 AM EST): Appears well compensated and euvolemic Assessment & Plan (06/18/2019 2:30 PM EST): No recurrence, normal cardiac function and structure Assessment & Plan (04/17/2018 11:23 AM EDT): No recurrence, recovered LVEF Assessment & Plan (02/08/2017 1:17 PM EDT): Well compensated euvolemic No recurrence Recovered LVEF Assessment & Plan (06/21/2016 8:35 PM EST): Well compensated, euvolemic with low proBNP, and well controlled BP HF still relatively tachycardic, with recent Holter monitor per PCP May be a candidate to uptitrate carvedilol to higher dose that is weight based. Assessment & Plan (12/22/2015 12:06 PM EDT): No clinical heart failure Assessment & Plan (04/21/2015 3:04 PM EDT): Appears well compensated and euvolemic Assessment & Plan (03/18/2014 4:07 PM EDT): Well compensated and euvolemic Assessment & Plan (08/20/2013 2:00 PM EST): Well compensated, euvolemic, with normalized LVEF Assessment & Plan (12/24/2011 2:26 PM EDT): Clinically stable, no heart Failure, FTC I Assessment & Plan (07/06/2011 11:58 AM EST): Well compensated, and euvolemic. Doing well. Assessment & Plan (12/13/2010 11:46 AM EDT): Appears euvolemic and well compensated No changes in medications BMI 30.0-30.9,adult 12/13/2010 Overview (08/20/2013): BMI elevated = 33.5 Patient counseled regarding weight reduction strategies Assessment & Plan (06/18/2019 2:31 PM EST): Body mass index is 33.37 kg/m . Patient counseled regarding weight reduction strategies, exercise, and cardiovascular prevention Assessment & Plan (04/17/2018 11:26 AM EDT): On going struggle, she is aware Normal glucose, but other risk factors for metabolic syndrome Assessment & Plan (06/21/2016 8:34 PM EST): On going issue, but stable [facility] be a [facility] Assessment & Plan (08/20/2013 2:01 PM EST): Patient counseled in the past and again today. Weight up to 214 pounds Polycystic ovarian disease 12/13/2010 Hypertension 12/29/2007 Overview (07/05/2020): Labile Therapy: Losartan and Carvedilol, and HCTZ-->HCTZ d/c'd + Family history of HTN (Father), elevated BMI Renal Duplex US: No evidence for renal artery stenosis Normal K+ Mildly elevated Aldosterone =23, Renin=5.8 Normal serum metanephrine/normetanephrine Assessment & Plan (07/05/2020 10:51 AM EST): BP ~ 120/80 -90 mmHg Assessment & Plan (06/18/2019 2:29 PM EST): Well-controlled on the current medical regimen Assessment & Plan (04/17/2018 11:26 AM EDT): Well controlled on the current medications, tolerating well. Normal electrolytes and renal function Assessment & Plan (02/08/2017 1:08 PM EDT): Well controlled on the current regimen Assessment & Plan (06/21/2016 8:40 PM EST): Stable, better controlled on current regimen, with HCTZ added Assessment & Plan (12/22/2015 12:15 PM EDT): BP still somewhat high, and can be labile No FRANSISCO on Duplex US Stable LVEF Will increase carvedilol Assessment & Plan (04/21/2015 3:04 PM EDT): Elevated today, rechecked, claims compliance with medications Assessment & Plan (03/18/2014 4:38 PM EDT): Elevated today, had taken meds last night, but better at home. Assessment & Plan (08/20/2013 2:00 PM EST): Well-controlled blood pressure on current medical therapy Assessment & Plan (12/24/2011 2:32 PM EDT): BP a little high today, ~ 130-138/90 mmHg If still elevated at home, would increase losartan to 50 mg daily Assessment & Plan (07/06/2011 11:53 AM EST): Stable, well controlled Social History Tobacco Use Types Packs/Day Years Used Date Smoking Tobacco: Never Smokeless Tobacco: Never Alcohol Use Standard Drinks/Week Comments Not Asked 0 (1 standard drink = 0.6 oz pur e alcohol) Comments Unknown Sex and Gender Information Value Date Recorded Sex Assigned at Not on file Legal Sex Female 7:00 AM EST Gender Identity Not on file Sexual Orientation Not on file Last Filed Vital Signs Vital Sign Reading Time Taken Comments Blood Pressure 145/97 07/03/2021 4:07 PM EST Pulse 105 07/03/2021 4:07 PM EST Temperature - - Respiratory Rate 13 06/18/2019 10:4 8 AM EST Oxygen Saturation 96% 07/03/2021 4:07 PM EST Inhaled Oxygen Concentration - - Weight 111.9 kg (246 lb 9.6 oz) 07/03/2021 4:07 PM EST Height 172.7 cm (5' 8 ) 07/03/2021 4:07 PM EST Body Mass Index 37.5 07/03/2021 4:07 PM EST Plan of Treatment Health Maintenance Due Date Last Done Comments HIV screen 1999 Hepatitis C Screening 1999 Hepatitis B vaccine (0-59 yr s) and Risk (1) 2000 Tetanus/Diphtheria/Pertussis Vaccines (1 - Tdap) 2000 HPV test 2011 PAP Smear 2011 Breast Cancer Share Decision Needed 2021 Breast Cancer screening 2021 Covid-19 Vaccine ( - 2023-2 5 season) 2024 Influenza (Flu) vaccine (1 o f 1 - Influenza standard series) 04/12/2025 Lipid Screening 07/03/2026 07/03/2021, 11/0 02/2019, 04/17/2018, Additional history exists Diabetes Screening (HgbA1C o r Glucose) Discontinued 07/03/2021, 06/30/2020, 06/18/2019, Additional history exists Procedures Procedure Name Priority Date/Time Associated Diagnosis Comments HC VENIPUNCTURE STAT 07/03/2021 3:16 PM EST HFrEF (heart failure with reduced ejection fraction) BASIC METABOLIC PANEL STAT 07/03/2021 3:16 PM EST HFrEF (heart failure with reduced ejection fraction) from Last 3 Months or Most Recently Relevant to Health Maintenance Results * Lipid Panel (Reflex Direct LDL) (07/03/2021 3:16 PM EST) Pathologist [facility] Cholesterol, Total 231 mg/dL [facility] Comment: Lower Risk: <200 mg/dL Average Risk: 200-239 mg/dL Higher Risk: >lt=428 mg/dL Triglyceride 215 mg/dL [facility] Comment: Average Risk/Lower Risk: <150 mg/dL Borderline High Risk: 150-199 mg/dL High Risk: 200-499 mg/dL Very High Risk: >ds=201 mg/dL HDL Cholesterol 47 mg/dL [facility] Comment: Males: Higher Risk: <40 mg/dL Females: Higher Risk: <50 mg/dL LDL Cholesterol 141 mg/dL [facility] Comment: Lowest Risk: <100 mg/dL Lower Risk: 100-129 mg/dL Borderline High Risk: 130-159 mg/dL High Risk: 160-189 mg/dL Very High Risk: >cb=226 mg/dL Cholesterol/HDL Ratio 4.9 ratio [facility] Lipid Interpretation See Note [facility] Comment: Lipid management should be guided by a patient s ASCVD risk, goals and preferences. ACC/AHA Guidelines recommend high intensity statin if clinical ASCVD or LDL greater than or equal to 190 mg/dL. [email or web address]-[email or web address] Adults aged 40-75 with LDL 70-189 mg/dL should have their 10 year ASCVD risk estimated with the ACC/AHA ASCVD risk slip cover estimator http://tools.acc.org/NWKNF-Llou-Tvxfjfufz/ Statin should be discussed if risk greater than or equal to 7.5% in non-diabetics. With diabetes, moderate intensity statin is recommended if risk less than 7.5%, high intensity if risk greater than or equal to 7.5%. Annual lipid monitoring on statins is not necessary. Evaluate secondary causes of Triglycerides greater than 500 mg/dL or LDL greater than 190 mg/dL: See table 6 of ACC/AHA Guideline. Lifestyle modification is a critical component of ASCVD risk reduction. Blood 07/03/2021 3:16 PM EST 07/03/2021 3:31 PM EST Narrative Resulting Agency Comment Spec In Lab us Nafisa Wilcox MD CHEMISTRY ORDERABLES Final Result [facility] [place] [address] * (ABNORMAL) Basic Metabolic Panel (non-fasting) (07/03/2021 3:16 PM EST) Glucose 118 65 - 199 mg/dL [facility] Comment:Diabetes: >=200 mg/d L plus symptoms Blood Urea Nitrogen 10 8 - 18 mg/dL [facility] Creatinine 0.66(L) 0.70 - 1.20 mg/dL [facility] Sodium 139 135 - 145 mmol/L [facility] Potassium 4.0 3.5 - 5.0 mmol/L [facility] Comment: Please note: Patients with WBC >100,000 may have falsely elevated Potassium levels. For accurate Potassium quantification in these patients send serum separator tube (gold top) for subsequent determinations. Contact the Clinical Chemistry Laboratory if there are any questions. Chloride 101 98 - 107 mmol/L [facility] Carbon Dioxide 27 22 - 31 mmol/L [facility] Anion Gap 11 5 - 15 mmol/L [facility] Calcium 9.6 8.5 - 10.5 mg/dL [facility] Est Glomerular Filtration Rate 110 >=60 mL/min/1. 73 m [facility] Comment: This patient s estimated glomerular filtration rate (eGFR) is between 110 mL/min/1.73 m2 (patients with less muscle mass) and 128 mL/min/1.73 m2 (patients with more muscle mass) as determined by the CKD-EPI equation. Assessment of eGFR is not appropriate when creatinine concentrations are rapidly changing. For clinical decisions where creatinine clearance will affect therapy, a 24-hour urine creatinine clearance may be advised. Assignment of CKD stage 1 - 5 for patients with an eGFR near the transition point between stages may be based on clinical assessment of muscle mass and symptoms in addition to eGFR. Blood 07/03/2021 3:16 PM EST 07/03/2021 3:31 PM EST Narrative Resulting Agency Comment Spec In Lab us Nafisa Wilcox MD CHEMISTRY [place] [address] from Last 3 Months or Most Recently Relevant to Health Maintenance Insurance [facility] Care Teams Rod Hanger Relationship Specialty Start Date End Date Eliseo Jha MD [address] [place] [address] [place] [address] PCP - General 03/18/14
--- NOTE | 2025-03-19 14:54 | A.OFFPC_ITS ---
Vital Signs 03/19/25 14:56 Height 5 ft 9 in Weight 165 lb BMI 24.4 BP 90/54 L Blood Pressure Location Lt brachial Position Sitting Pulse 87 Pulse Oximetry (%) 97 Oxygen Delivery Method Room Air Intake Visit Reasons: Annual Exam Guest Services Required: No Accompanied by: Self / Same As Patient Allergies chlorhexidine (From ChloraPrep Clear) Allergy (Mild, Verified 03/19/25 15:15) Rash isopropyl alcohol (From ChloraPrep Clear) Allergy (Mild, Verified 03/19/25 15:15) Rash adhesive Adverse Reaction (Intermediate, Verified 03/19/25 15:15) Rash Medication List - Last Reconciled 03/19/25 by Arleen Schmidt PA-C biotin 1 mg PO DAILY PRN carvedilol 12.5 mg (1/2 x 25 mg) PO BID 90 days cetirizine (Zyrtec) 10 mg PO DAILY PRN fluticasone propionate 50 mcg/actuation 1 spray intranasal Q12H gabapentin 100 mg PO BEDTIME lactobacillus combination no.4 (Probiotic) 3,000 mmu cells PO DAILY losartan 25 mg PO DAILY 90 days metformin 500 mg PO DAILY multivitamin 1 tab PO DAILY pantoprazole 40 mg PO DAILY 90 days simvastatin 10 mg PO BEDTIME 30 days spironolactone 25 mg PO DAILY 90 days tirzepatide 15 mg (0.5 mL) subcut QWEEK 90 days Tobacco use date assessed: 03/19/25 Dental Screening Dental Screen Date: 03/19/25 Did you have a dental visit in the last 12 months?: Yes Did you have a dental problem in the last 6 months where you did not have access to dental care?: No Was dental information given to patient?: Patient declined HPI Annual Exam HPI Details 44-year-old female has a past medical hi story of cardiomyopathy, GERD, hypercholesterolemia, hypertension, PCOS, diabetes mellitus, obstructive sleep apnea, neuropathy, varicose veins last seen 11/[address] Jha coming in for annual exam. In review of the notes, patient was seen by Neurology 02/2025 for paresthesias ordered for nerve conduction study for further evaluation. Patient had routine gynecology visit 01/2025. She was seen by [facility] vascular surgery 12/2024 for varicose veins continue with conservative measures advised to follow up as needed. Presenting for an annual wellness visit. 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 Currently managed with carvedilol and losartan. No recent hospitalizations or surgeries related to this condition. Recently noted blood pressure to be lower than usual, causing occasional dizziness upon standing. Managed with carvedilol and losartan. Hydration status is adequate, but adjustments to medication may be necessary. Occasional constipation and diarrhea, possibly related to medication (Tirzepatide). Reports numbness, particularly in the right leg. Neurology consultation pending. pap smear: UTD with [facility] supply analyst vaccines: Tdap updated today mammogram: 08/2024 eye doctor: yearly [facility] Medical History Paresthesias Hypersomnia Snoring History of GI bleed Nonischemic cardiomyopathy PCOS (polycystic ovarian syndrome) Congestive heart failure Obesity (BMI 30-39.9) Ocular migraine Hypertension Hypercholesterolemia GERD (gastroesophageal reflux disease) Surgical History No pertinent past surgical history Family History Mother No problems noted. Father FH: prostate cancer Maternal Grandfather Colon cancer Social History Household Members: Family Housing: House Alcohol intake: current Alcohol intake frequency: a few times a month Comment: 2 days weekend 1 glass Patient Tobacco Use Status: Never used Tobacco e-Cigarette/Vaping Use: Never Used Second Hand Smoke Exposure: No service: No Current occupational status: employed Current occupation: [employer] Current occupational exposures/hazards: No Sexual orientation: Straight/Heterosexual Gender identity: Female Cognitive needs: No Hearing needs: No Vision needs: No Female Reproductive History Menstrual Age of Menarche: 15 Questionnaire PHQ-9 Over the last 2 weeks, how often have you been bothered by any of the following problems? 1. Little interest or pleasure in doing things: not at all 2. Feeling down, depressed, or hopeless: not at all 3. Trouble falling or staying asleep, or sleeping too much: not at all 4. Feeling tired or having little energy: not at all 5. Poor appetite or overeating: not at all 6. Feeling bad about yourself - or that you are a failure or have let yourself or your family down: not at all 7. Trouble concentrating on things, such as reading the newspaper or watching television: not at all 8. Moving or speaking so slowly that other people could have noticed. Or the opposite - being so fidgety or restless that you have been moving around a lot more than usual: not at all 9. Thoughts that you would be better off or of hurting yourself in some way: not at all Total score: 0 Depression Screening Interpretation: Negative Depression Screening Done: Yes 40438 - PHQ-9 Billing: Yes Source: Developed by Drs. Dandy Vieyra, Marianne Rascon, Lance Gtz and colleagues, with an educational selin from [employer]. Thrive Questionnaire Date Thrive assessed: 03/19/25 I am a: Patient What is your living situation today?: I have a steady place to live Within the past 12 months, did the food you bought not last and you didn't have the money to get more?: I choose not to answer this question Within the past 12 months, did you worry whether your food would run out before you got money to buy more?: I choose not to answer this question Do you have trouble paying for medicines?: I choose not to answer this question Do you have trouble getting transportation to medical appointments?: I choose not to answer this question Do you have trouble paying your heating and electricity bill?: I choose not to answer this question Do you have trouble taking care of your child, family member or friend?: I choose not to answer this question Do you have trouble with day-to-day activities such as bathing, preparing meals, shopping, managing finances, etc.?: I choose not to answer this question Are you currently unemployed and looking for a job?: I choose not to answer this question Are you interested in more education?: I choose not to answer this question Please select the resources that you would like help with: None Currently or been in a relationship where the following occur: I choose not to answer THRIVE Score: 0 AUDIT C Alcohol Use Questionnaire (AUDIT-C) 1. How often do you have a drink containing alcohol?: Monthly or less 2. How many drinks containing alcohol do you have on a typical day when you are drinking?: 1 or 2 Total Score: 1 SELENA-7 AMB Questionnaire SELENA-7 Date SELENA - 7 assessed: 03/19/25 Feeling nervous, anxious, or on edge: 0 = Not at all Not being able to stop or control worryin = Not at all Worrying too much about different things: 0 = Not at all Trouble relaxin = Not at all Being so restless that it is hard to sit still: 0 = Not at all Becoming easily annoyed or irritable: 0 = Not at all Feeling afraid as if something awful might happen: 0 = Not at all Total SELENA-7 score (0-4 normal; 5-9 mild; 10-14 moderate; 15-21 severe): 0 Source: Developed by Drs. Dandy Vieyra, Marianne Rascon, Lance Gtz and colleagues, with an educational selin from [employer]. SELENA-7 Assessment Billing SELENA-7 Assessment Tool: SELENA-7 Assessment 42441 Review of Systems Const Denies body aches, Denies chills, Denies fever(s), Denies headache(s) and Denies poor appetite Eyes Reports no additional complaints ENT Denies dysphagia, Denies dizziness, Denies headache(s) and Denies odynophagia Card Denies chest pain, Denies syncope, Denies edema, Denies irregular heart rhythm, Reports lightheadedness and Denies dyspnea Resp Denies cough and Denies dyspnea GI Denies abdominal pain, Reports constipation (occasional), Denies dysphagia, Reports diarrhea (occasional ), Denies nausea, Denies odynophagia and Denies vomiting Reports no additional complaints Musc Reports no additional complaints and Denies abnormal gait Skin/Breast Reports system reviewed and no additional complaints, except as documented Neuro Denies abnormal gait, Denies dizziness, Denies syncope and Denies headache(s) Psych Reports no additional complaints Physical exam (Primary Care) Vital Signs: Last Vital Signs Pulse 87 03/19/25 14:56 BP 90/54 L 03/19/25 14:56 Pulse Ox 97 03/19/25 14:56 Oxygen Delivery Method Room Air 03/19/25 14:56 BMI result Body Mass Index 24.4 Tobacco/Smoking Status: Tobacco use Status Tobacco use date assessed 03/19/25 03/19/25 14:59 Patient Tobacco Use Status Never used Tobacco 03/19/25 14:59 e-Cigarette/Vaping Use Never Used 03/19/25 14:59 PHQ-9: PHQ-9 Score PHQ-9: Total score 0 03/19/25 15:31 Depression Screening Interpretation: Negative Thrive Assessment: Date of Thrive Assessment Date Thrive assessed 03/19/25 03/19/25 14:59 Currently or been in a relationship where the following occur: I choose not to answer Const General: cooperative, healthy appearing, comfortable and no acute distress Orientation/consciousness: patient oriented x3 HENMT Head: Yes normocephalic Ears: hearing grossly normal bilaterally General nose exam: Normal external nose present Eyes General: appearance normal, both eyes and all related structures Conjunctivae: conjunctivae normal Neck Neck: Yes full ROM and Yes no lymphadenopathy Resp Effort & Inspection: normal respiratory effort Auscultation: clear to auscultation bilaterally, no crackles, no rales, no rhonchi and no wheezes Cardio Rate: regular rate Rhythm: regular rhythm Skin General skin exam: no rashes or lesions noted Neuro General: patient oriented x3 Gait exam (Neuro): Normal gait present Extrem General: Yes normal to inspection, Yes full ROM and No edema Psych Affect: normal affect Attitude: cooperative Insight: Good insight present (Psych) Judgement: Good judgement present (Psych) Results AMB Hemoglobin A1c AMB Hemoglobin A1c 4.9 % Last Edit by Jose Daniel Hernandez MA on 03/19/25 15:32 Immunizations Boostrix Tdap 2.5 Lf unit-8 mcg-5 Lf/0.5 mL intramuscular syringe Performing Provider: Arleen Schmidt PA-C [facility] Administered by: Elaine Robert LPN on 03/19/25 15:48 Dose Route Admin Location Dispensed Lot Number Expiration Date NDC Material Mover 0.5 mL IM Left Deltoid 0.5 mL [id number] 06/04/27 [id number] [employer] Total Dispensed Waste 0.5 mL 0 % VIS Given Date VIS Provided VIS Publication Date 03/19/25 Single Vaccine 21 Eligibility Eligibility Date Funding Source Not [facility] Eligible 03/19/25 Private Results Reviewed Results Reviewed: Laboratory Last Values Hgb A1c (Clinic) 4.9 % (4.0-6.0) 03/19/25 15:31 Coding Level of Care Code Est Pt Prev Care 40-64y(70933) Diagnoses Annual physical exam Z00.00 Essential hypertension I10 Hypertension type: essential hypertension Nonischemic cardiomyopathy I42.8 Varicose veins of both lower extremities with inflammation I83.11; I83.12 Hypercholesterolemia E78.00 Type 2 diabetes mellitus with hyperglycemia E11.65 PCOS (polycystic ovarian syndrome) E28.2 Obesity (BMI 30-39.9) E66.9 Gastroesophageal reflux disease without esophagitis K21.9 Esophagitis presence: without esophagitis Paresthesias R20.2 Additional Codes SELENA-7 Assessment Billing - SELENA-7 Assessment Tool: SELENA-7 Assessment 65710 ([id number]) PHQ-9 - 27439 - PHQ-9 Billing: Yes ([id number]) Assessment & Plan Assessment & Plan (1) Annual physical exam: Code(s): Z00.00 - Encounter for general adult medical examination without abnormal findings Category: Medical Plan: Patient is up-to-date on all recommended routine screenings and vaccinations for her age. I did order for updated blood work to be completed prior to her next visit. Tetanus vaccine was given today. Healthy diet and regular exercise is encouraged. (2) Hypertension: Code(s): I10 - Essential (primary) hypertension Category: Medical Qualifiers: Hypertension type: essential hypertension Qualified Code(s): I10 - Essential (primary) hypertension Plan: Continue on current blood pressure medication. Avoid salt intake and encourage healthy diet and regular exercise. Currently hypotensive 90/54 in the office today and having orthostatic symptoms. A message was sent to her stitcher utility for further guidance and consideration for decreased losartan. In the meantime continue with adequate hydration (3) Nonischemic cardiomyopathy: Comment: January 2013 EF 61%, April 2018 EF 59% June 2020 echocardiogram ejection fraction 53% normal left ventricular activity October 2022. Normal LV systolic function with very mild asymmetric septal hypertrophy with grade 1 diastolic dysfunction 2. Normal cardiac valvular Doppler 3. No gross pericardial effusion Code(s): I42.8 - Other cardiomyopathies Category: Medical Plan: Currently following with [facility] Cardiology; on spironolactone, losartan, carvedilol. Denies symptoms of chest pain, shortness of breath or orthopnea and is clinically euvolemic on exam today. (4) Varicose veins of both lower extremities with inflammation: Code(s): I83.11 - Varicose veins of right lower extremity with inflammation; I83.12 - Varicose veins of left lower extremity with inflammation Category: Medical Plan: Continue to follow with vascular surgery as needed. Elevate the legs, compression stockings, and exercise as tolerated. (5) Hypercholesterolemia: Code(s): E78.00 - Pure hypercholesterolemia, unspecified Category: Medical Plan: Avoid foods that are high in cholesterol such as red meat, fried foods, eggs and baked goods. Continue on simvastatin (6) Type 2 diabetes mellitus with hyperglycemia: Comment: 12/25/2024 patient informed me she thought she was prediabetic at this point. (has lost weight and improved hemoglobin a 1 C) Code(s): E11.65 - Type 2 diabetes mellitus with hyperglycemia Category: Medical Plan: Decrease the amount of carbohydrates such as pasta, bread, rice, and potatoes and limit the amount of sweets. Although fruits are generally healthy they should be eaten in moderation as they are still high in sugar. Hemoglobin A1c goal of less than 7%. A1c in the clinic 4.9% today continue on Mounjaro (7) PCOS (polycystic ovarian syndrome): Code(s): E28.2 - Polycystic ovarian syndrome Category: Medical Plan: Patient is currently on metformin for PCOS. Continue to follow with gynecology (8) Obesity (BMI 30-39.9): Code(s): E66.9 - Obesity, unspecified Category: Medical Plan: Healthy diet and regular exercise is encouraged. Noted 3 lb weight loss since last visit (9) GERD (gastroesophageal reflux disease): Code(s): K21.9 - Gastro-esophageal reflux disease without esophagitis Category: Medical Qualifiers: Esophagitis presence: without esophagitis Qualified Code(s): K21.9 - Gastro-esophageal reflux disease without esophagitis Plan: Avoid trigger foods such as citrus, tomato products, soda, caffeine, spicy foods and other foods that may be irritating to your stomach. Avoid laying flat 3-4 hours after eating and elevate the head of the bed 30 degrees to prevent acid from moving into the esophagus. Continue on pantoprazole (10) Paresthesias: Code(s): R20.2 - Paresthesia of skin Category: Medical Plan: Continue to follow with Neurology and has nerve conduction study upcoming later this month. Plan The patient will receive a tetanus vaccine today as part of routine preventative care. A message will be sent to Dr. Lane to discuss the possibility of reducing the losartan dosage due to the patient's low blood pressure, which may be exacerbated by current medication levels. The patient is advised to increase fluid intake to improve hydration status, particularly given the use of spironolactone, which can lead to fluid loss. Follow-up with the stitcher utility is recommended to reassess blood pressure management and ensure optimal control. The patient is encouraged to maintain regular appointments with the oil tanker captain to monitor vision changes. The patient is advised to return for a blood pressure check in conjunction with the upcoming nerve test appointment. This note was constructed using voice recognition software. While every effort has been made to ensure accuracy and x ray equipment mechanic, still areas may have been included sometimes these areas may affect the content or meeting of the given symptoms. Total time spent caring for the patient today was 30 minutes. This includes time spent before the visit reviewing the chart, time spent during the visit, and time spent after the visit and documentation. Patient was informed and verbally consented to the use of an ambient scribe for clinic note documentation during this visit. Orders: Orders AMB Hemoglobin A1c Today E11.65 - Type 2 diabetes mellitus with hyperglycemia TDaP Immunization Today Z23 - Encounter for immunization
[2025-03-19 14:56] VITALS: BP 90/54; PULSE 87; O2SAT 97; BMI 24.4
== END 2025-03-19 15:50 | disposition home or self-care (01) ==
LOC: HO.HMCH 14:47
PROVIDERS: PCP Internal Medicine
DX: Z00.00 Encounter for general adult medical examination without abnormal findings (principal); I42.8 Other cardiomyopathies; E11.65 Type 2 diabetes mellitus with hyperglycemia; E66.9 Obesity, unspecified; Z68.24 Body mass index [BMI] 24.0-24.9, adult; I10 Essential (primary) hypertension; I83.11 Varicose veins of right lower extremity with inflammation; I83.12 Varicose veins of left lower extremity with inflammation; E78.00 Pure hypercholesterolemia, unspecified; E28.2 Polycystic ovarian syndrome; K21.9 Gastro-esophageal reflux disease without esophagitis; R20.2 Paresthesia of skin

== ENCOUNTER → 2025-03-19 14:46 | Outpatient (BNVA) | payer OTHER, SELFPAY | PROVIDERS: PCP Internal Medicine | DX: Z00.00 Encounter for general adult medical examination without abnormal findings (principal); I10 Essential (primary) hypertension; I42.9 Cardiomyopathy, unspecified; G47.33 Obstructive sleep apnea (adult) (pediatric); E78.00 Pure hypercholesterolemia, unspecified; E28.2 Polycystic ovarian syndrome; G62.9 Polyneuropathy, unspecified; I83.90 Asymptomatic varicose veins of unspecified lower extremity; I42.8 Other cardiomyopathies; I83.11 Varicose veins of right lower extremity with inflammation; I83.12 Varicose veins of left lower extremity with inflammation; E11.65 Type 2 diabetes mellitus with hyperglycemia; K21.9 Gastro-esophageal reflux disease without esophagitis; R20.2 Paresthesia of skin; Z23 Encounter for immunization | CPT/HCPCS: 83036; 90471; 90715; 96127 ==

== ENCOUNTER 2025-04-06 09:09 | Outpatient (REF) | payer OTHER, SELFPAY ==
--- NOTE | 2025-04-06 09:11 | EMG_ITS ---
Patient Complaints: Numbness bilateral upper extremity Procedure done: NCV/ EMG Bilateral median and ulnar motor and sensory studies were performed bilateral radial sensory and median and lateral antecubital brachial sensory studies were performed an EMG needle examination was performed. Impression: 1. Mild bilateral ulnar neuropathy across elbow 2. Mild left median neuropathy across carpal tunnel 3. Chronic bilateral mid to lower, probably C6, radiculopathy MTDD
--- OUTSIDE RECORDS SUMMARY | 2025-04-06 09:31 | XMS_ITS | Clinical Summary ---
Author Organization [facility] Address [facility] [place] [address] Care Team Providers Care Manager Assurance Name Role Phone Eliseo Jha MD Primary Care Provider [phone] Allergies No known active allergies Medications loratadine [...] [facility] Cholesterol, Total 231 mg/dL [facility] Comment: Lower Risk: <200 mg/dL Average Risk: 200-239 mg/dL Higher Risk: >xz=092 mg/dL Triglyceride 215 mg/dL [facility] Comment: Average Risk/Lower Risk: <150 mg/dL Borderline High Risk: 150-199 mg/dL High Risk: 200-499 mg/dL Very High Risk: >zm=861 mg/dL HDL Cholesterol 47 mg/dL [facility] Comment: Males: Higher Risk: <40 mg/dL Females: Higher Risk: <50 mg/dL LDL Cholesterol 141 mg/dL [facility] Comment: Lowest Risk: <100 mg/dL Lower Risk: 100-129 mg/dL Borderline High Risk: 130-159 mg/dL High Risk: 160-189 mg/dL Very High Risk: >zc=971 mg/dL Cholesterol/HDL Ratio 4.9 ratio [facility] Lipid Interpretation See Note [facility] Comment: Lipid management should be guided by a patient s ASCVD risk, goals and preferences. ACC/AHA Guidelines recommend high intensity statin if clinical ASCVD or LDL greater than or equal to 190 mg/dL. http://[employer]url.com/ZNT-HTY-Rjcjzzklp Adults aged 40-75 with LDL 70-189 mg/dL should have their 10 year ASCVD risk estimated with the ACC/AHA ASCVD risk project estimator http://tools.acc.org/XEMKS-Mdol-Hwhfxhdcu/ Statin should be discussed if risk greater [...] Nafisa Wilcox MD CHEMISTRY ORDERABLES Final Result [facility] [place] [address] * (ABNORMAL) Basic Metabolic Panel (non-fasting) (07/03/2021 3:16 PM EST) Glucose 118 65 - 199 mg/dL [facility] Comment:Diabetes: >=200 mg/d L plus symptoms Blood Urea Nitrogen 10 8 - 18 mg/dL [facility] Creatinine 0.66(L) 0.70 - 1.20 mg/dL [facility] Sodium 139 135 - 145 mmol/L [facility] Potassium 4.0 3.5 - 5.0 mmol/L [facility] Comment: Please note: Patients with WBC >100,000 may have falsely elevated Potassium levels. For accurate Potassium quantification in these patients send serum separator tube (gold top) for subsequent determinations. Contact the Clinical Chemistry Laboratory if there are any questions. Chloride 101 98 - 107 mmol/L [facility] Carbon Dioxide 27 22 - 31 mmol/L [facility] Anion Gap 11 5 - 15 mmol/L [facility] Calcium 9.6 8.5 - 10.5 mg/dL [facility] Est Glomerular Filtration Rate 110 >=60 mL/min/1. 73 m [facility] Comment: This patient s estimated [...] Nafisa Wilcox MD CHEMISTRY ORDERAB[place] [address] from Last 3 Months or Most Recently Relevant to Health Maintenance Insurance [facility] Care Teams Manager Assurance Relationship Specialty Start Date End Date Eliseo Jha MD [address] [place] [address] [place] [address] PCP - General 03/18/14
--- OUTSIDE RECORDS SUMMARY | 2025-04-06 09:31 | XMS_ITS | Patient Health Record ---
[facility] Address [address] [place] [address] Care Team Providers Care Appellate Law Clerk Name Role Phone Abhijeet Izabeladarsh Primary Care Provider Unavailabl e Black, Petrona Unavailable [phone] Allergies Allergen (clinical drug ingredient) Drug/Non Drug [...] Problem Acquired hammer toe of right foot ([id number] 105) Other hammer toe(s) (acquired), right foot (M20.41) Active confirmed Problem Acquired hammer toe of left foot ([id number] 103) Other hammer toe(s) (acquired), left foot (M20.42) Active confirmed Plan Of Treatment Pending Test Test Name Order Date 88570- Debride <25 sq cm 02/23/2022 36507 I&D ABSCESS- SIMPLE,SINGLE 022 Insurance Providers Payer Name Payer Address Payer Phone Subscriber Number Group Number Insured Name Patient Relationship to Insured Coverage Start Date Coverage End Date [facility] [address] [place] [address] [id number] Adina Garnett Self - patient is the insured Medical (General) History Medical History History ICD Code Congestive heart failure Reflux ( GERD) Hypercholesterolemia Hypertension Cardiomyopathy PCOS type II diabetes Anemia covid-19 Cholesterol Back,Hip,and Knee pain Chicken pox blood clots Surgical History Surgery Date(Month/Year)
== END 2025-04-06 09:10 | disposition home or self-care (01) ==
LOC: HO.NEURO 09:09
PROVIDERS: PCP Internal Medicine; Visit Provider Nurse Practitioner Family
DX: R20.0 Anesthesia of skin (principal); R20.2 Paresthesia of skin
CPT/HCPCS: 95886; 95913

== ENCOUNTER → 2025-04-06 09:11 | Outpatient (BNV) | payer OTHER, SELFPAY | PROVIDERS: PCP Internal Medicine; Visit Provider Psychiatry & Neurology Neurology | DX: G56.23 Lesion of ulnar nerve, bilateral upper limbs (principal) | CPT/HCPCS: 95886; 95913 ==

== ENCOUNTER 2025-06-04 13:45 | Outpatient (AMB) | payer OTHER, SELFPAY ==
--- NOTE | 2025-06-04 13:52 | MHC.OFFVIS ---
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 Patient reports numbness is presented from the elbows down to her hands. 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 Denies finger locking. Has not tried braces, steroid injections, or OT. She is currently taking Gabapentin for neuropathy on her legs. Denies any prior injuries or surgeries to the hands. IMPRESSION 04/06/25: 1. Mild bilateral ulnar neuropathy across elbow 2. 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 Patient reports numbness is presented from the elbows down to her hands. 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 Denies finger locking. Has not tried braces, steroid injections, or OT. She is currently taking Gabapentin for neuropathy on her legs. Denies any prior injuries or surgeries to the hands. IMPRESSION 04/06/25: 1. Mild bilateral ulnar neuropathy across elbow 2. Mild left median neuropathy across carpal tunnel [facility] Medical History Paresthesias Hypersomnia Snoring History of GI bleed Nonischemic cardiomyopathy PCOS (polycystic ovarian syndrome) Congestive heart failure Obesity (BMI 30-39.9) Ocular migraine Hypertension Hypercholesterolemia GERD (gastroesophageal reflux disease) Surgical History No pertinent past surgical history Family History Mother No problems noted. 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 Good APB muscle firing and good finger cross. Vascular: Capillary refill brisk. ROM: Patient can make a fist and extend all their digits. Skin: No lacerations or abrasions noted. General: No ecchymosis. No erythema or evidence of infection. Assessment & Plan Assessment & Plan (1) Cubital tunnel syndrome, bilateral: Code(s): G56.23 - Lesion of ulnar nerve, bilateral upper limbs Category: Medical (2) Left carpal tunnel syndrome: Code(s): G56.02 - Carpal tunnel syndrome, left upper limb Category: Medical Plan 1. Bilateral cubital tunnel syndrome 2. Left carpal tunnel syndrome Symptoms intermittent, daily, worse at night Patient is educated about this condition Patient is educated about the typical treatment course At this time, patient is interested in operative intervention, but would like to discuss with the plastic surgeon with whom she she is scheduled to have multiple surgeries to determine whether this surgery should proceed prior to or after her previously scheduled surgery Patient will call us when she does so and makes a decision as to when she would like to move forward with surgery Patient understands this is amenable to this plan Coding Level of Care Code New Pt Level 3 (23820) Diagnoses Cubital tunnel syndrome, bilateral G56.23 Left carpal tunnel syndrome G56.02
[2025-06-04 13:53] VITALS: BMI 24.4
--- OUTSIDE RECORDS SUMMARY | 2025-06-04 15:48 | XMS_ITS | Data Portability ---
Author Organization [place] - [facility], Allergy Address [address] [place] [id number] Care Team Providers Care Dish Up Person Name Role Phone MALIKA WILSON Referring Provider Assessment No assessment recorded. Plan of Treatment Reminders Order Date Submit Date Provider Last Modified By Organization Details Last Modified Time Details Appointments Allergy Test 2024 01:00P M [facility] Not available Not available Not available Establish ed 30 2024 01:00P M SIVAN Atkins MD Not available Not available Not available Lab None recorded. Referral None recorded. Procedures allergy testing, skin prick (PROC) 2024 025 [email or web address] Not available 06/03/2025 16:22:33 intraderm al allergy skin testing (PROC) 2024 025 [email or web address] 32 Not available 06/03/2025 16:22:33 pulmonary function test procedure (PROC) 2024 025 [email or web address] 32 Not available 06/03/2025 16:22:33 pulse oximetry (PROC) 2024 025 [email or web address] 32 Not available 06/03/2025 16:22:34 Surgeries None recorded. Imaging None recorded. Medication Orders None recorded. Patient TargetsNo targets recorded. Patient InstructionsNo instructions recorded. Reason for Referral None Reported. Problems Name Problem SNOMED Code Status Onset Date Resolution Date Notes Provider Name and Address Organization Details Recorded Time Obstructive sleep apnea syndrome 89105033 Active 2024 SIVAN Atkins MD [address] [address], [place], [phone] - [facility] 13:14:57 Nasal congestion 79365305 Active 2024 SIVAN Atkins MD [address] [place] [address], [place], [phone], [facility] 13:15:00 Recurrent acute maxillary sinusitis Active 2024 SIVAN Atkins MD [address] [place] [address], [phone], [facility] [place] 13:15:11 Dysfunction of left eustachian tube 4821947677314 106 Active 2024 SIVAN Atkins MD [address] [place] [address], [phone], [facility] [place] 13:15:17 Allergic rhinitis caused by pollen 33406635 Active 2024 SIVAN Atkins MD [address] [place] [address], [place], [phone], [facility] [place] 13:24:13 Allergic rhinitis 49143439 Active 2024 SIVAN Atkins MD [address] [place] [address], [phone], [facility] [place] 13:24:23 Non-allergi c rhinitis 158667914936 Active 2024 SIVAN Atkins MD [address] [place] [address], [place], [phone], [facility] [place] 13:24:23 Seasonal allergic rhinitis 633776612 Active 2024 SIVAN Atkins MD [address] [place] [address], [phone], [facility] [place] 13:24:23 Problem Notes None recorded. Procedures Surgical History Date Name Laterality Status Provider Name and Address Organization Details Recorded Time 05/06/2025 FFL_RE completed SIVAN BLAIR MD [address] [place] [address] [place], [phone], [facility] - [facility] 05/06/2025 13:15:21 Imaging Results None recorded. Procedure Notes None recorded. Medical Equipment None Reported. Allergies Allergen ID Allergen Name Allergen Category Reaction Reaction Severity Criticality Documentation Date Start Date Code Code System Note Provider Name and Address Organization Details Recorded Time 052993 adhesive environme nt,medica tion Not available Not available Not available 05/06/2025 Gill omer [place] [facility] 12:45:31 848154 Betadine medicatio n Not available Not available Not available 05/06/20252024 0 RxNorm Gill omer [place] [facility] 12:45:31 Medications Name Sig Start Date Stop Date Status Note LastModified by Organization Details LastModified Time metformin 500 mg tablet TAKE 1 TABLET DAILY active Not Available Not Available No t Available carvedilol 25 mg tablet TAKE 1/2 TABLET TWICE A DAY. MUST ADMINISTER WITH A MEAL/FOOD active Not Available Not Available No t Available carvedilol 6.25 mg tablet TAKE 1 TABLET BY MOUTH TWICE DAILY WITH FOOD active Not Available Not Available No t Available simvastatin 10 mg tablet TAKE 1 TABLET AT BEDTIME active Not Available Not Available No t Available spironolacto ne 25 mg tablet TAKE 1 TABLET DAILY active Not Available Not Available No t Available lorazepam 0.5 mg tablet active Not Available Not Available Not Available pantoprazole 40 mg tablet,delay ed release TAKE 1 TABLET DAILY active Not Available Not Available No t Available losartan 25 mg tablet TAKE 1 TABLET DAILY active Not Available Not Available No t Available gabapentin 100 mg capsule TAKE 1 CAPSULE AT BEDTIME active Not Available Not Available No t Available losartan 100 mg tablet TAKE 1/2 TABLET DAILY active Not Available Not Available No t Available gabapentin 100 mg tablet active Not Available Not Available Not Available Mounjaro 15 mg/0.5 mL subcutaneous pen injector ADMINISTER 15 MG UNDER THE SKIN EVERY WEEK active Not Available Not Available N ot Available Vitals Date Recorded Body weight Body mass index (BMI) Body height Provider Name and Address Organization Details Last Updated DateTime 05/06/2025 95593.74 g 24.4 kg/m2 175.26 cm Gill Saucedo [place] [facility] 05/06/2025 12:45:05 Social History Question Answer Notes LastModified by Organizat ion Details LastModified Time Tobacco Smoking Status Unknown If Ever Smoked Gill Lewis omer [place] [facility] 05/06/2025 12:45:23 What Type Of Heel Blacker Do You Use? None Information not available 05/06/2025 How Many Alcoholic Drinks Do You Consume Per Day On Average? 1 [email or web address] Information not available 05/06/2025 Do You Have Any Pets? No [email or web address] Information not available 05/06/2025 Are You Passively Exposed To Smoke? No [email or web address] Information not available 05/06/2025 Are There Any Smokers In Your House? No [email or web address] Information not available 05/06/2025 Sex: Unknown Functional Status Question Answer Note LastModified by Organization Details LastModified Time How many times per week do you consume alcohol? Less than 1 time per week [email or web address] Inform ation not available 05/06/2025 Do you use any illicit or recreational drugs? No [email or web address] Information not available 05/06/2025 Do you or have you ever used any other forms of tobacco or nicotine? No [email or web address] Information not available 05/06/2025 What is your level of alcohol consumption? Occasional Information not available 05/06/2025 What type of noise exposure are you exposed to? noExposureToExcessiveNoise [email or web address] Infor mation not available 05/06/2025 Mental Status None recorded. Family History Relationship Description Onset Age of this Age Resolved Age Notes LastModified by Organization Details LastModified Time Mother Hearing loss [email or web address] Not avai lable 05/06/2025 12:45:11 Mother Headache [email or web address] Not availabl e 05/06/2025 12:45:11 Medical History Condition Response Tonsil Infections Y Nasal or Sinus Problems Y High Cholesterol Y Headaches Y Allergies/Hayfever Y Heart Problems Y Anemia Y Other Skin Condition Y Diabetes Y GERD/Reflux Y Hypertension Y Gynecological HistoryNo gynecological history recorded. Obstetrics History GPAL:G 0 P 0 0 0 0 Past Encounters Encounter ID Performer Location Encounter Start Date Encounter Closed Date Diagnosis/Indication Diagnosis SNOMED-CT Code Diagnosis ICD10 Code Diagnosis IMO Codes Diagnosis Note [id number] SIVAN BLAIR [facility] [address] [address] 05/06/2025 12:15:31 05/06/2025 13:22:36 Obstructive sleep apnea syndrome 57606919 G47.33 [id number] Her sleep study was in September 2023 and she believes she has lost significan t weight and her sleep has improved since then. She continues to lose weight and has not reached a steady state yet. I recommend deferring a repeat sleep study until she comes to a new [facility] with her weight. Since she had borderline sleep apnea to begin with I suspect she will cure her sleep apnea with weight loss alone. I recommend deferring interventi on such as CPAP or dental appliance for the moment. We will consider a repeat sleep study after her follow-up. Nasal congestion 5000834 0 R09.81 23498 will obtain allergy testing to better assess Dysfunctio n of left eustachian tube 3027644897 371229 H69.92 44219178 No fluid on exam. Can consider an audiogram at follow-up. Allergic r hinitis caused by pollen 43876267 J30.1 18320204 Exam and history are consistent with allergic rhinitis. We will obtain allergy testing to clarify the extent of allergy with f/u to review. Health Concerns Section Related Observation LastModified by Organization Detai ls LastModified Time None Recorded Concern Status LastModified by Organization Details LastModified Time None Recorded Advance Directives Directive None Recorded Payers Insurance Date Sequence Insurance Name Policy Number Policy Victor Covered Member ID Victor Member ID Guarantor Name 06/04/2025 1 [facility] (PPO) [id number] Adina Lees [id number] Adina Lees Notes Date Note Type Note Provider Name and Address Organization Details Recorded Time 05/06/2025 text/html ROS as noted in the HPI Hx of [facility]. PSG showed an AHI of 5 and O2 chris of 83%. She was referred here to discuss treatment. She has not tried CPAP. She has a history of sinus congestion and sinus infections. In the last year she has not had sinusitis treated with abx. She has intermittent blocked feeling in the left ear but none today. She takes an antihistamine and Flonase every day. She is on Mounjaro and has lost over 80 pounds. She believes she has lost at least 15 pounds since her sleep study was done in September 2023. She reports her sleep quality has improved as well. SIVAN BLAIR MD [address] [place] [address], [phone], [facility] - [facility] 05/06/2025 13:51:35 OBGyn Episode No OBEpisode recorded.
--- OUTSIDE RECORDS SUMMARY | 2025-06-04 15:48 | XMS_ITS ---
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 triamcinolo ne acetonide triamcin olone acetonid e 9623436 0.1 % Topica l cream bid 07/22/20 23 active rash Appl y twic e a day to affe cted area s on hand s for two week s on, one week off, PRN itch . pantoprazol e pantopra zole 194670 40 mg Intrav enous recon soln daily active GERD carvedilol carvedil ol 826067 25 mg Oral table t daily active BP losartan losartan 25 mg Oral table t daily active BP metformin metformi n 600258 500 mg Oral capsu le bid active DM simvastatin simvasta tin 926596 10 mg Oral table t daily active cholesterol spironolact one spironol actone 439649 25 mg Oral table t daily active BP Mounjaro tirzepat codi Subcut aneous once a week suspend ed Mounjaro tirzepat codi 10 mg/0.5 mL Subcut aneous Pen Injec tor once a week active DM Ozempic semaglut codi 0.25 mg or 0.5 mg(2 mg/1.5 mL) Subcut aneous pen injec tor suspend ed Losartan Potassium NULL 14 suspend ed Pantoprazol e Sodium NULL 0 15 active Problems Problem Code Type Status Date of Diagnosis Da te of Resolution Patient encounter status (finding) 003089478(SN OMED) Diagnosis active 05/31/2025 Patient encounter status (finding) 185863708(SN OMED) Diagnosis active 05/10/2025 Patient encounter status (finding) 331628568(SN OMED) Diagnosis active 03/25/2025 Patient encounter status (finding) 828676892(SN OMED) Diagnosis active 03/09/2025 Patient encounter status (finding) 344862301(SN OMED) Diagnosis active 02/04/2025 Patient encounter status (finding) 166324047(SN OMED) Diagnosis active 01/01/2025 Patient encounter status (finding) 856508909(SN OMED) Diagnosis active 12/28/2024 Patient encounter status (finding) 859549840(SN OMED) Diagnosis active 12/03/2024 Patient encounter status (finding) 501319715(SN OMED) Diagnosis active 10/19/2024 Patient encounter status (finding) 993152539(SN OMED) Diagnosis active 10/06/2024 Neoplasm of uncertain behavior of skin (disorder) 18538116(SNO MED) Diagnosis active 09/25/2024 Disorder of pigmentation (disorder) 185411677(SN OMED) Diagnosis active 09/25/2024 Melanocytic nevus (disorder) 756264805(SN OMED) Diagnosis active 09/25/2024 Hemangioma of skin and subcutaneous tissue (disorder) 470969007(SN OMED) Diagnosis active 09/25/2024 Seborrheic keratosis (disorder) 020268784(SN OMED) Diagnosis active 09/25/2024 Family history of malignant neoplasm (situation) 638391259(SN OMED) Diagnosis active 09/25/2024 Patient encounter status (finding) 750451484(SN OMED) Diagnosis active 09/03/2024 Patient encounter status (finding) 545316568(SN OMED) Diagnosis active 07/23/2024 Patient encounter status (finding) 438200618(SN OMED) Diagnosis active 06/22/2024 Patient encounter status (finding) 116465491(SN OMED) Diagnosis active 05/11/2024 Patient encounter status (finding) 199568828(SN OMED) Diagnosis active 04/30/2024 Patient encounter status (finding) 892339342(SN OMED) Diagnosis active 03/06/2024 Patient encounter status (finding) 021621844(SN OMED) Diagnosis active 01/30/2024 Patient encounter status (finding) 717016729(SN OMED) Diagnosis active 11/28/2023 Patient encounter status (finding) 269620236(SN OMED) Diagnosis active 11/08/2023 Patient encounter status (finding) 102934220(SN OMED) Diagnosis active 09/20/2023 Patient encounter status (finding) 902610130(SN OMED) Diagnosis active 09/02/2023 Patient encounter status (finding) 244729572(SN OMED) Diagnosis active 08/22/2023 Patient encounter status (finding) 425533334(SN OMED) Diagnosis active 08/15/2023 Patient encounter status (finding) 869331247(SN OMED) Diagnosis active 07/26/2023 Atopic dermatitis (disorder) 12791931(SNO MED) Diagnosis active 07/22/2023 Inflammatory dermatosis (disorder) 646452191(SN OMED) Diagnosis active 07/22/2023 Benign neoplasm of skin of left upper limb (disorder) 192135930765 9101(SNOMED) Diagnosis active 07/22/2023 Disorder of pigmentation (disorder) 207683853(SN OMED) Diagnosis active 07/22/2023 Melanocytic nevus (disorder) 406866995(SN OMED) Diagnosis active 07/22/2023 Hemangioma of skin and subcutaneous tissue (disorder) 409191408(SN OMED) Diagnosis active 07/22/2023 Seborrheic keratosis (disorder) 375803824(SN OMED) Diagnosis active 07/22/2023 Patient encounter status (finding) 868771065(SN OMED) Diagnosis active 06/06/2023 Patient encounter status (finding) 686042827(SN OMED) Diagnosis active 04/25/2023 Patient encounter status (finding) 957900404(SN OMED) Diagnosis active 02/15/2023 Benign neoplasm of skin of left upper limb (disorder) 012187601853 9101(SNOMED) Diagnosis active 01/14/2023 Neoplasm of uncertain behavior of skin (disorder) 31633883(SNO MED) Diagnosis active 01/14/2023 Patient encounter status (finding) 033045995(SN OMED) Diagnosis active 01/03/2023 Patient encounter status (finding) 378916769(SN OMED) Diagnosis active 11/15/2022 Patient encounter status (finding) 190824535(SN OMED) Diagnosis active 09/28/2022 Patient encounter status (finding) 428989557(SN OMED) Diagnosis active 07/02/2022 Benign neoplasm of skin of face (disorder) 87339653(SNO MED) Diagnosis active 06/14/2014 Increased blood pressure (finding) 77463772(SNO MED) Problem active Acne (disorder) 60259691(SNO MED) Problem active Psoriasis (disorder) 8612786(SNOM ED) Problem active Results No data Encounters Service provided at [facility], [address] [place] [address], [address], [place], [place] [id number]. Office phonenumber is [phone]. Office fax number is [phone]. Encounter Diagnosis Location Date / Time Type Cosmetic (Z41.9) [facility] 05/31/2025 19:15:00 UTC Reason For Referral No data Procedures Procedure Date Laser removal of hair (procedure) 2024 12:00 am UTC Laser removal of hair (procedure) 2024 12:00 am UTC Subcutaneous injection of filling materi al (procedure) 01/01/2025 12:00 am UTC Laser removal of hair (procedure) 2024 12:00 am UTC Laser removal of hair (procedure) 2024 12:00 am UTC Shave biopsy (procedure) 09/25/2024 12:0 0 am UTC Laser removal of hair (procedure) 2024 12:00 am UTC Laser removal of hair (procedure) 2023 12:00 am UTC Laser removal of hair (procedure) 2023 12:00 am UTC Laser removal of hair (procedure) 2023 12:00 am UTC Subcutaneous injection of filling materi al (procedure) 04/30/2024 12:00 am UTC Laser removal of hair (procedure) 2023 12:00 am UTC Laser removal of hair (procedure) 2023 12:00 am UTC Subcutaneous injection of filling materi al (procedure) 11/28/2023 12:00 am UTC Laser removal of hair (procedure) 2023 12:00 am UTC Laser removal of hair (procedure) 2023 12:00 am UTC Subcutaneous injection of filling materi al (procedure) 08/22/2023 12:00 am UTC Laser removal of hair (procedure) 2022 12:00 am UTC Shave biopsy (procedure) 01/14/2023 12:0 0 am UTC Documentation of past medical history (p rocedure) Review Of Systems No Data Assessment 1.CosmeticFacial: face; face; Mask Type - cream based; Massage - hand massage, shoulder massage, facial massage, and neck massage; Extraction Method - comedone extractor; Exfoliation Type - enzyme; Additional Findings - acne, wrinkling, and redness; Assessment - Rosacea; Rowe (Use numbers only, nospecial characters or $) - 100.00; Treatment Type - Facial; Extraction - open comedones. Plan of Care Code Detail Instructions 8184609 triamcinolone aceton codi 0.1 % topical cream Apply twice a day to affected areas on hands for two weeks on, one week off, PRN itch. 996665 fluocinonide 0.05 % topical solu tion Apply to scalp BID PRN itch/rash 293444 ketoconazole 2 % shampoo Use 3x/ week to scalp, leave lather on 5-10 min prior to rinsing. Instructions No Data Social History Code Activity Start Date End Date 760930364 (SNOMED) Never smoker Sex female Sexual orientation Unspecified Gender identity Unspecified Vital Signs No data
--- OUTSIDE RECORDS SUMMARY | 2025-06-04 15:48 | XMS_ITS | Patient Health Record ---
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 Name Role Phone Abhijeet Izabeladarsh Primary Care Provider Unavailabl e Black, Petrona Unavailable [phone] Allergies Allergen (clinical drug ingredient) Drug/Non Drug [...] Problem Acquired hammer toe of right foot (0629558910148 105) Other hammer toe(s) (acquired), right foot (M20.41) Active confirmed Problem Acquired hammer toe of left foot ([id number] 103) Other hammer toe(s) (acquired), left foot (M20.42) Active confirmed Plan Of Treatment Pending Test Test Name Order Date 58449- Debride <25 sq cm 02/23/2022 17760 I&D ABSCESS- SIMPLE,SINGLE 022 Insurance Providers Payer Name Payer Address Payer Phone Subscriber Number Group Number Insured Name Patient Relationship to Insured Coverage Start Date Coverage End Date [facility] [address] [place] [address] [id number] Adina Garnett Self - patient is the insured Medical (General) History Medical History History ICD Code Congestive heart failure Reflux ( GERD) Hypercholesterolemia Hypertension Cardiomyopathy PCOS type II diabetes Anemia covid-19 Cholesterol Back,Hip,and Knee pain Chicken pox blood clots Surgical History Surgery Date(Month/Year)
--- OUTSIDE RECORDS SUMMARY | 2025-06-04 15:48 | XMS_ITS | Clinical Summary ---
Author Organization [facility] Address [facility] [place] [address] Care Team Providers Care Custom Seamstress Name Role Phone Eliseo Jha MD Primary Care Provider [phone] Allergies No known active allergies Medications loratadine [...] 2021 Breast Cancer screening 2021 Covid-19 Vaccine (1 - 2023-2 5 season) 2025 Influenza (Flu) vaccine (1 o f 1 [...] Direct LDL) (07/03/2021 3:16 PM EST) Pathologist [facility] [place] Cholesterol, Total 231 mg/dL [facility] Comment: Lower Risk: <200 mg/dL Average Risk: 200-239 mg/dL Higher Risk: >xe=957 mg/dL Triglyceride 215 mg/dL [facility] Comment: Average Risk/Lower Risk: <150 mg/dL Borderline High Risk: 150-199 mg/dL High Risk: 200-499 mg/dL Very High Risk: >vi=898 mg/dL HDL Cholesterol 47 mg/dL [facility] Comment: Males: Higher Risk: <40 mg/dL Females: Higher Risk: <50 mg/dL LDL Cholesterol 141 mg/dL [facility] Comment: Lowest Risk: <100 mg/dL Lower Risk: 100-129 mg/dL Borderline High Risk: 130-159 mg/dL High Risk: 160-189 mg/dL Very High Risk: >mt=915 mg/dL Cholesterol/HDL Ratio 4.9 ratio [facility] Lipid Interpretation See Note [facility] Comment: Lipid management should be guided by a patient s ASCVD risk, goals and preferences. ACC/AHA Guidelines recommend high intensity statin if clinical ASCVD or LDL greater than or equal to 190 mg/dL. [email or web address] Adults aged 40-75 with LDL 70-189 mg/dL should have their 10 year ASCVD risk estimated with the ACC/AHA ASCVD risk sales estimator http://tools.acc.org/BPPAO-Dtsa-Icrywtewg/ Statin should be discussed if risk greater [...] Nafisa Wilcox MD CHEMISTRY ORDERABLES Final Result [facility] [place] [address] * (ABNORMAL) Basic Metabolic Panel (non-fasting) (07/03/2021 3:16 PM EST) Glucose 118 65 - 199 mg/dL [facility] Comment:Diabetes: >=200 mg/d L plus symptoms Blood Urea Nitrogen 10 8 - 18 mg/dL [facility] Creatinine 0.66(L) 0.70 - 1.20 mg/dL [facility] Sodium 139 135 - 145 mmol/L [facility] Potassium 4.0 3.5 - 5.0 mmol/L [facility] Comment: Please note: Patients with WBC >100,000 may have falsely elevated Potassium levels. For accurate Potassium quantification in these patients send serum separator tube (gold top) for subsequent determinations. Contact the Clinical Chemistry Laboratory if there are any questions. Chloride 101 98 - 107 mmol/L [facility] Carbon Dioxide 27 22 - 31 mmol/L [facility] Anion Gap 11 5 - 15 mmol/L [facility] Calcium 9.6 8.5 - 10.5 mg/dL [facility] Est Glomerular Filtration Rate 110 >=60 mL/min/1. 73 m [facility] Comment: This patient s estimated [...] Nafisa Wilcox MD CHEMISTRY ORDERABLES [place] [address] from Last 3 Months or Most Recently Relevant to Health Maintenance Insurance [facility] Care Teams Custom Seamstress Relationship Specialty Start Date End Date Eliseo Jha MD [address] [place] [address] [place] [address] PCP - General 03/18/14
== END 2025-06-04 14:22 | disposition home or self-care (01) ==
LOC: HO.HOS 13:46
PROVIDERS: PCP Internal Medicine
DX: G56.23 Lesion of ulnar nerve, bilateral upper limbs (principal); G56.02 Carpal tunnel syndrome, left upper limb
CPT/HCPCS: 99203

== ENCOUNTER 2025-06-21 15:17 | Outpatient (REF) | payer OTHER, SELFPAY ==
[2025-06-21 16:22] LABS: MANUAL DIFF FLAG NO
[2025-06-21 17:08] LABS: Hematocrit 42.0 % (37.0-47.0); Hemoglobin 14.2 g/dl (12.0-16.0); Imm Gran Abs Auto 0.04 X10*3/uL (0.00-0.03); Imm Gran Pct Auto 0.5 % (0.0-0.4); Lymphocytes Absolute Auto 2.3 X10*3/uL (1.2-4.9); Mean Corpuscular HGB Conc 33.8 g/dl (31.0-35.0); Mean Corpuscular Hemoglobin 29.4 pg (27.0-33.0); Mean Corpuscular Volume 87.0 fL (80.0-98.0); NRBC Abs Auto 0.000 X10*3/uL (0.0-0.012); NRBC Pct Auto 0.0 /100WBC (0.0-0.2); Platelet Count 262 X10*3/uL (160-400); Red Blood Count 4.83 X10*6/uL (4.20-5.50); White Blood Count 7.9 X10*3/uL (4.8-10.8)
[2025-06-21 17:36] LABS: Alanine Aminotransferase 14 U/L (0-31); Albumin Level 4.4 g/dL (3.5-5.0); Alkaline Phosphatase 39 U/L (39-117); Anion Gap 12 (12-20); Aspartate Amino Transferase 19 U/L (5-31); Blood Urea Nitrogen 11 mg/dL (9-16); Calcium 9.1 mg/dL (8.4-10.2); Carbon Dioxide 27 mmol/L (22-29); Chloride 106 mmol/L (96-108); Estimated Glomerular Filt Rate > 60; Potassium 3.6 mmol/L (3.3-5.1); Sodium 141 mmol/L (135-145); Total Protein 7.2 g/dL (6.5-8.0)
== END 2025-06-21 15:18 | disposition home or self-care (01) ==
LOC: HO.LAB 15:17
PROVIDERS: PCP Internal Medicine
DX: Z01.818 Encounter for other preprocedural examination (principal); E11.9 Type 2 diabetes mellitus without complications; I10 Essential (primary) hypertension; I42.9 Cardiomyopathy, unspecified; Z79.899 Other long term (current) drug therapy
CPT/HCPCS: 36415; 80053; 83036; 85025; 96127

== ENCOUNTER 2025-06-21 15:17 | Outpatient (AMB) | payer OTHER, SELFPAY ==
[2025-06-21 15:33] VITALS: BP 112/72; PULSE 94; TEMP 36.6; O2SAT 99; BMI 24.2
--- NOTE | 2025-06-21 15:33 | MHC.PC.OV ---
Vital Signs 06/21/25 15:33 Height 5 ft 9 in Weight 164 lb BMI 24.2 BP 112/72 Blood Pressure Location Lt brachial Position Sitting Pulse 94 Pulse Source Pulse Oximeter Temp 97.8 F Temp Source Temporal Artery Scan Pulse Oximetry (%) 99 Oxygen Delivery Method Room Air Intake Visit Reasons: Pre-op skin removal Allergies chlorhexidine (From ChloraPrep Clear) Allergy (Mild, Verified 06/21/25 15:35) Rash isopropyl alcohol (From ChloraPrep Clear) Allergy (Mild, Verified 06/21/25 15:35) Rash adhesive Adverse Reaction (Intermediate, Verified 06/21/25 15:35) Rash Medication List - Last Reconciled 06/21/25 by Arleen Schmidt PA-C biotin 1 mg PO DAILY PRN carvedilol 6.25 mg PO BID cetirizine (Zyrtec) 10 mg PO DAILY PRN fluticasone propionate 50 mcg/actuation 1 spray intranasal Q12H gabapentin 100 mg PO BEDTIME lactobacillus combination no.4 (Probiotic) 3,000 mmu cells PO DAILY losartan 25 mg PO DAILY 90 days multivitamin 1 tab PO DAILY pantoprazole 40 mg PO DAILY 90 days simvastatin 10 mg PO BEDTIME 30 days tirzepatide 15 mg (0.5 mL) subcut QWEEK 90 days Tobacco use date assessed: 06/21/25 Dental Screening Dental Screen Date: 06/21/25 Did you have a dental visit in the last 12 months?: Yes Did you have a dental problem in the last 6 months where you did not have access to dental care?: No Was dental information given to patient?: Patient has dentist HPI Pre-op skin removal HPI Details 45 year old female with past medical history of GERD, diabetes mellitus, hyperlipidemia, hypertension, mild SERVANDO, PCOS last seen 03/2025 coming in for pre op. Scheduled to have skin removal with [facility] Dr. Rascon 08/06/2025. diabetes mellitus: Currenlty on Tirzepatide. A1c in the office today 4.7%. hypertension: Well controlled 112/72 on carvedilol and losartan nonischemic cardiomyopathy: seeing cardiology 06/28/2025 Patient has never had surgery or anesthesia in the past without complication. She has no history of CVA or [place]. PENDING SALE TO [facility] Medical History Paresthesias Hypersomnia Snoring History of GI bleed Nonischemic cardiomyopathy PCOS (polycystic ovarian syndrome) Congestive heart failure Obesity (BMI 30-39.9) Ocular migraine Hypertension Hypercholesterolemia GERD (gastroesophageal reflux disease) Surgical History No pertinent past surgical history Family History Mother No problems noted. 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 1. Little interest or pleasure in doing things: not at all 2. Feeling down, depressed, or hopeless: not at all 3. Trouble falling or staying asleep, or sleeping too much: not at all 4. Feeling tired or having little energy: not at all 5. Poor appetite or overeating: not at all 6. Feeling bad about yourself - or that you are a failure or have let yourself or your family down: not at all 7. Trouble concentrating on things, such as reading the newspaper or watching television: not at all 8. Moving or speaking so slowly that other people could have noticed. Or the opposite - being so fidgety or restless that you have been moving around a lot more than usual: not at all 9. Thoughts that you would be better off or of hurting yourself in some way: not at all Total score: 0 Depression Screening Interpretation: Negative Depression Screening Done: Yes Source: Developed by Marianne ElizaldeW. Abiodun, Lance Gtz and colleagues, with an educational selin from [employer]. Thrive Questionnaire Date Thrive assessed: 03/19/25 I am a: Patient What is your living situation today?: I have a steady place to live Within the past 12 months, did the food you bought not last and you didn't have the money to get more?: I choose not to answer this question Within the past 12 months, did you worry whether your food would run out before you got money to buy more?: I choose not to answer this question Do you have trouble paying for medicines?: I choose not to answer this question Do you have trouble getting transportation to medical appointments?: I choose not to answer this question Do you have trouble paying your heating and electricity bill?: I choose not to answer this question Do you have trouble taking care of your child, family member or friend?: I choose not to answer this question Do you have trouble with day-to-day activities such as bathing, preparing meals, shopping, managing finances, etc.?: I choose not to answer this question Are you currently unemployed and looking for a job?: I choose not to answer this question Are you interested in more education?: I choose not to answer this question Please select the resources that you would like help with: None Currently or been in a relationship where the following occur: I choose not to answer THRIVE Score: 0 AUDIT C Alcohol Use Questionnaire (AUDIT-C) 1. How often do you have a drink containing alcohol?: Monthly or less 2. How many drinks containing alcohol do you have on a typical day when you are drinking?: 1 or 2 3. How often do you have six or more drinks on one occasion?: Never Total Score: 1 SELENA-7 AMB Questionnaire SELENA-7 Date SELENA - 7 assessed: 03/19/25 Feeling nervous, anxious, or on edge: 0 = Not at all Not being able to stop or control worryin = Not at all Worrying too much about different things: 0 = Not at all Trouble relaxin = Not at all Being so restless that it is hard to sit still: 0 = Not at all Becoming easily annoyed or irritable: 0 = Not at all Feeling afraid as if something awful might happen: 0 = Not at all Total SELENA-7 score (0-4 normal; 5-9 mild; 10-14 moderate; 15-21 severe): 0 Source: Developed by Drs. Dandy Vieyra, Marianne Rascon, Lance Gtz and colleagues, with an educational selin from [employer]. Review of Systems Const Denies body aches, Denies chills, Denies fever(s), Denies headache(s) and Denies poor appetite Eyes Reports no additional complaints ENT Denies dizziness and Denies headache(s) Card Denies chest pain, Denies syncope, Denies edema, Denies irregular heart rhythm, Denies lightheadedness and Denies dyspnea Resp Denies cough and Denies dyspnea GI Denies abdominal pain, Denies dyspepsia, Denies heartburn, Denies nausea and Denies vomiting Reports no additional complaints Musc Reports no additional complaints and Denies abnormal gait Skin/Breast Reports system reviewed and no additional complaints, except as documented Neuro Denies abnormal gait, Denies dizziness, Denies syncope and Denies headache(s) Psych Reports no additional complaints Physical exam (Primary Care) Vital Signs: Last Vital Signs Temp 97.8 F 06/21/25 15:33 Pulse 94 06/21/25 15:33 BP 112/72 06/21/25 15:33 Pulse Ox 99 06/21/25 15:33 Oxygen Delivery Method Room Air 06/21/25 15:33 BMI result Body Mass Index 24.2 Tobacco/Smoking Status: Tobacco use Status Tobacco use date assessed 06/21/25 06/21/25 15:37 Patient Tobacco Use Status Never used Tobacco 06/21/25 15:37 e-Cigarette/Vaping Use Never Used 06/21/25 15:37 PHQ-9: PHQ-9 Score PHQ-9: Total score 0 06/21/25 15:54 Depression Screening Interpretation: Negative Thrive Assessment: Date of Thrive Assessment Date Thrive assessed 03/19/25 06/21/25 15:37 Currently or been in a relationship where the following occur: I choose not to answer Const General: cooperative, healthy appearing, comfortable and no acute distress Orientation/consciousness: patient oriented x3 HENMT Head: Yes normocephalic Ears: hearing grossly normal bilaterally General nose exam: Normal external nose present Eyes General: appearance normal, both eyes and all related structures Conjunctivae: conjunctivae normal Neck Neck: Yes full ROM and Yes no lymphadenopathy Resp Effort & Inspection: normal respiratory effort Auscultation: clear to auscultation bilaterally, no crackles, no rales, no rhonchi and no wheezes Cardio Rate: regular rate Rhythm: regular rhythm Skin General skin exam: no rashes or lesions noted Neuro General: patient oriented x3 Gait exam (Neuro): Normal gait present Extrem General: Yes normal to inspection, Yes full ROM and No edema Psych Affect: normal affect Attitude: cooperative Insight: Good insight present (Psych) Judgement: Good judgement present (Psych) Results AMB Hemoglobin A1c AMB Hemoglobin A1c 4.7 % Last Edit by Darby George CMA on 06/21/25 15:43 Results Reviewed Results Reviewed: Laboratory Last Values Hgb A1c (Clinic) 4.7 % (4.0-6.0) 06/21/25 15:37 Coding Level of Care Code Est Pt Level 3 (43499) Diagnoses Pre-op exam Z01.818 Assessment & Plan Assessment & Plan (1) Pre-op exam: Code(s): Z01.818 - Encounter for other preprocedural examination Category: Medical Plan: Regarding preop clearance, the patient is at moderate risk for proposed surgery. Reviewed with the patient that no surgery is completely free of risk and that this examination is to assist the surgeon in reviewing informed consent. Discussed with patient she can continue on all of her prescription medications with the exception of Mounjaro which must be stopped 1 week prior to surgery. As always please follow the direction of your surgeon. She is currently awaiting Cardiology clearance which is scheduled for 06/28/2025. I did order for preoperative labs CBC/CMP to be completed prior to clearance being granted. EKG will be completed by her heel sander rubber. Addendum will be added once lab work has been reviewed and cardiology has cleared the patient. Plan This note was constructed using voice recognition software. While every effort has been made to ensure accuracy and embroidery operator, still areas may have been included sometimes these areas may affect the content or meeting of the given symptoms. Total time spent caring for the patient today was 30 minutes. This includes time spent before the visit reviewing the chart, time spent during the visit, and time spent after the visit and documentation. Patient was informed and verbally consented to the use of an ambient scribe for clinic note documentation during this visit. Orders: Orders AMB Hemoglobin A1c Today Z13.9 - Encounter for screening, unspecified Complete Blood Count Auto Diff Today Z01.818 - Encounter for other preprocedural examination Comprehensive Met. Panel Today Z01.818 - Encounter for other preprocedural examination
--- OUTSIDE RECORDS SUMMARY | 2025-06-21 17:25 | XMS_ITS | Continuity of Care Document ---
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 Plan of Treatment Reminders Order Date Submit Date Provider Last Modified By Organization Details Last Modified Time Details Appointments Establish ed 30 2024 01:00P M SIVAN [...] instructions recorded. Reason for Referral None Reported. Results Created Date Observation Date Name Description Value Unit Range Abnormal Flag Note LastModifiedBy Organization Detail LastModifiedTime 06/07/20 25 ivet metry testi ng* No observ ation record ed. Not Available 2024 13:27:26 Result Notes None recorded. Problems Name Problem SNOMED Code Status Onset Date Resolution Date Notes Provider Name and Address Organization Details Recorded Time Obstructive sleep apnea syndrome 42565613 Active 2024 SIVAN Atkins MD [address] [address], [facility] [place], [address], [facility] - [facility] 13:14:57 Nasal congestion 90165136 Active 2024 SIVAN Atkins MD [address] [address], [facility] [place], [address], [facility] - [facility] 13:15:00 Recurrent acute maxillary sinusitis Active 2024 SIVAN Atkins MD [address] [address], [facility] [place], [address], [facility] - [facility] 13:15:11 Dysfunction of left eustachian tube 4073590784535 106 Active 2024 SIVAN Atkins MD [address] [address], [facility] [place], [address], [facility] - [facility] 13:15:17 Allergic rhinitis caused by pollen 72758120 Active 2024 SIVAN Atkins MD [address] [address], [facility] [place], [address], [facility] - [facility] 13:24:13 Allergic rhinitis 67850449 Active 2024 SIVAN Atkins MD [address] [address], [facility] [place], [address], [facility] - [facility] 13:24:23 Non-allergi c rhinitis 475976460489 Active 2024 SIVAN Atkins MD [address] [address], [place], [address], [facility] - [facility] 13:24:23 Seasonal allergic rhinitis 835526619 Active 2024 SIVAN Atkins MD [address] [address], [place], [address], [facility] - [facility] 13:24:23 Perennial allergic rhinitis 865900781 Active 2024 JEANNIE BEST [address] [address], [place], [address], [facility] 13:23:34 Perennial allergic rhinitis 023871116 Active 2024 [address] [address], [place], [address], [facility] 13:28:44 Problem Notes None recorded. Procedures Surgical History Date Name Laterality Status Provider Name and Address Organization Details Recorded Time Allergy Testing-Full completed MATTHEW BEST[address], [address], [facility] 06/07/2025 14:21:09 FFL_RE completed SIVAN BLAIR MD [address] [place] [address], [address], [facility] 05/06/2025 13:15:21 Imaging Results None recorded. Procedure Notes None recorded. Medical Equipment None Reported. Allergies Allergen ID Allergen Name Allergen Category Reaction Reaction Severity Criticality Documentation Date Start Date Code Code System Note Provider Name and Address Organization Details Recorded Time 433531 adhesive environme nt,medica tion Not available Not available Not available 05/06/2025 Gill omer [place] [facility] 12:45:31 971919 Betadine medicatio n Not available Not available Not available 05/06/20252024 71461 0 RxNorm Gill omer [facility] 12:45:31 Medications Name Sig Start Date Stop Date Status Note LastModified by Organization Details LastModified Time metformin 500 mg tablet TAKE 1 TABLET DAILY active Not Available Not Available No t Available carvedilol 25 mg tablet TAKE 1/2 TABLET TWICE A DAY. MUST ADMINISTE R WITH A MEAL/FOOD 06/07 completed Not Available Not Available Not Available carvedilol 6.25 mg tablet TAKE 1 TABLET BY MOUTH TWICE DAILY WITH FOOD active Not Available Not Available No t Available simvastatin 10 mg tablet TAKE 1 TABLET AT BEDTIME active Not Available Not Available No t Available spironolact one 25 mg tablet TAKE 1 TABLET DAILY 06/07 completed Not Available Not Available Not Available lorazepam 0.5 mg tablet 06/07 completed Not Available Not Available Not Available pantoprazol e 40 mg tablet,fran yed release TAKE 1 TABLET DAILY active Not Available Not Available No t Available losartan 25 mg tablet TAKE 1 TABLET DAILY active Not Available Not Available No t Available gabapentin 100 mg capsule TAKE 1 CAPSULE AT BEDTIME active Not Available Not Available No t Available losartan 100 mg tablet TAKE 1/2 TABLET DAILY 06/07 completed Not Available Not Available Not Available gabapentin 100 mg tablet 06/07 completed Not Available Not Available Not Available Mounjaro 15 mg/0.5 mL subcutaneou s pen injector ADMINISTE R 15 MG UNDER THE SKIN EVERY WEEK active Not Available Not Available No t Available Vitals Date Recorded Body weight Body mass index (BMI) Body height Provider Name and Address Organization Details Last Updated DateTime 05/06/2025 26198.74 g 24.4 kg/m2 175.26 cm Gill Saucedo [place] - [facility] 05/06/2025 12:45:05 Social History Question Answer Notes LastModified by Organizat ion Details LastModified Time Tobacco Smoking Status Unknown If Ever Smoked Gill omer [place] - [facility] 05/06/2025 12:45:23 What Type Of Machine Hostler Do You Use? None Information not available 05/06/2025 How Many Alcoholic Drinks Do You Consume Per Day On Average? 1 [email or web address] Information not available 05/06/2025 Do You Have Any Pets? No [email or web address] Information not available 05/06/2025 Are You Passively Exposed To Smoke? No [email or web address] Information not available 05/06/2025 Are There Any Smokers In Your House? No [email or web address] Information not available 05/06/2025 Sex: Unknown Functional Status Question Answer Note LastModified by Organization Details LastModified Time How many times per week do you consume alcohol? Less than 1 time per week Inform ation not available 05/06/2025 Do you use any illicit or recreational drugs? No [email or web address] Information not available 05/06/2025 Do you or have you ever used any other forms of tobacco or nicotine? No Information not available 05/06/2025 What is your level of alcohol consumption? Occasional Information not available 05/06/2025 What type of noise exposure are you exposed to? noExposureToExcessiveNoise [email or web address] Infor mation not available 05/06/2025 Mental Status None recorded. Family History Relationship Description Onset Age of this Age Resolved Age Notes LastModified by Organization Details LastModified Time Mother Hearing loss [email or web address] Not avai lable 05/06/2025 12:45:11 Mother Headache [email or web address] Not availabl e 05/06/2025 12:45:11 Medical History Condition Response Diabetes Y Allergies/Hayfever Y Heart Problems Y Tonsil Infections Y Nasal or Sinus Problems Y Anemia Y GERD/Reflux Y High Cholesterol Y Headaches Y Other Skin Condition Y Hypertension Y Gynecological HistoryNo gynecological history recorded. Obstetrics History GPAL:G 0 P 0 0 0 0 Past Encounters Encounter ID Performer Location Encounter Start Date Encounter Closed Date Diagnosis/Indication Diagnosis SNOMED-CT Code Diagnosis ICD10 Code Diagnosis IMO Codes Diagnosis Note [id number] SIVAN BLAIR MD [facility] [address] [address] 05/06/2025 12:15:31 05/06/2025 13:22:36 Obstructive sleep apnea syndrome 33776117 G47.33 548099 Her sleep study was in September 2023 and she believes she has lost significan t weight and her sleep has improved since then. She continues to lose weight and has not reached a steady state yet. I recommend deferring a repeat sleep study [facility]. Since she had borderline sleep apnea to begin with I suspect she will cure her sleep apnea with weight loss alone. I recommend deferring interventi on such as CPAP or dental appliance for the moment. We will consider a repeat sleep study after her follow-up. Nasal congestion 0985641 0 R09.81 30071 will obtain allergy testing to better assess Dysfunctio n of left eustachian tube 4808842379 417918 H69.92 95074747 No fluid on exam. Can consider an audiogram at follow-up. Allergic r hinitis caused by pollen 96207707 J30.1 56543576 Exam and history are consistent with allergic rhinitis. We will obtain allergy testing to clarify the extent of allergy with f/u to review. Health Concerns Section Related Observation LastModified by Organization Detai ls LastModified Time None Recorded Concern Status LastModified by Organization Details LastModified Time None Recorded Payers Encounter Date Sequence Insurance Name Policy Number Policy Victor Covered Member ID Victor Member ID Guarantor Name 05/06/2025 1 [facility] [id number] Adina Lees [id number] Adina Lees Notes Date Note Type Note [...] has improved as well. SIVAN BLAIR MD [address] [place] [address], [place], [address], [place] [facility] 05/06/2025 13:51:35 OBGyn Episode No OBEpisode recorded.
--- OUTSIDE RECORDS SUMMARY | 2025-06-21 17:25 | XMS_ITS | Continuity of Care Document ---
Author Organization [place] - [facility], [facility] Address [address] [address] Care Team Providers Care Software Maintenance Engineer Name Role Phone MALIKA WILSON Referring Provider Assessment No assessment recorded. Plan of Treatment Reminders Order Date Submit Date Provider Last Modified By Organization Details Last Modified Time Details Appointments Establish ed 30 2024 01:00P Jolene Atkins MD Not available Not available Not available Lab None recorded. Referral None recorded. Procedures None recorded. Surgeries None recorded. Imaging None recorded. Medication Orders None recorded. Patient TargetsNo targets recorded. Patient InstructionsNo instructions recorded. Reason for Referral None Reported. Results Created Date Observation Date Name Description Value Unit Range Abnormal Flag Note LastModifiedBy Organization Detail LastModifiedTime 06/07/20 25 ivet metry testi ng* No observ ation record ed. [email or web address] Not Available 2024 13:27:26 Result Notes None recorded. Problems Name Problem SNOMED Code Status Onset Date Resolution Date Notes Provider Name and Address Organization Details Recorded Time Obstructive sleep apnea syndrome 77510596 Active 2024 SIVAN Atkins MD [address] [place] [address], [place], [phone], [facility] - [facility] 13:14:57 Nasal congestion 49022487 Active 2024 SIVAN Atkins MD [address] [place] [address], [place], [address], [facility] - [facility] 13:15:00 Recurrent acute maxillary sinusitis Active 2024 SIVAN Atkins MD [address] [place] [address], [place], [address], [facility] - [facility] 13:15:11 Dysfunction of left eustachian tube 4181612657147 106 Active 2024 SIVAN Atkins MD [address] [address], [place] [place], [address], [facility] - [facility] 13:15:17 Allergic rhinitis caused by pollen 26910524 Active 2024 SIVAN Atkins MD [address] [address], [facility] [place], [address], [facility] - [facility] 13:24:13 Allergic rhinitis 01836792 Active 2024 SIVAN Atkins MD [address] [address], [place] [place], [address], [facility] - [facility] 13:24:23 Non-allergi c rhinitis 403902024593 Active 2024 SIVAN Atkins MD [address] [address], [facility], [address], [facility] - [facility] 13:24:23 Seasonal allergic rhinitis 628660154 Active 2024 SIVAN Atkins MD [address] [address], [place], [address], [facility] - [facility] 13:24:23 Perennial allergic rhinitis 346439990 Active 2024 JEANNIE BEST [address] [address], [place], [address], [facility] - [facility] 13:23:34 Perennial allergic rhinitis 761380625 Active 2024 JEANNIE BEST [address] [address], [place] [place], [address], [facility] - [facility] 13:28:44 Problem Notes None recorded. Procedures Surgical History Date Name Laterality Status Provider Name and Address Organization Details Recorded Time Allergy Testing-Full completed JEANNIE BEST [address] [facility],[address] [address], [place], [address], [facility] 06/07/2025 14:21:09 FFL_RE completed SIVAN BLAIR MD [address] [facility], [place], [address], [facility] - [facility] 05/06/2025 13:15:21 Imaging Results None recorded. Procedure Notes None recorded. Medical Equipment None Reported. Allergies Allergen ID Allergen Name Allergen Category Reaction Reaction Severity Criticality Documentation Date Start Date Code Code System Note Provider Name and Address Organization Details Recorded Time 050945 adhesive environme nt,medica tion Not available Not available Not available 05/06/2025 Gill omer [facility] 12:45:31 524881 Betadine medicatio n Not available Not available Not available 05/06/2025202475 0 RxNorm Gill omer [facility] 12:45:31 Medications Name Sig Start Date [...] No t Available Vitals Date Recorded Body height Oxygen saturation Oxygen saturation in Arterial blood by Pulse oximetry Heart rate Body mass index (BMI) Body weight Systolic And Diastolic Provider Name and Address Organization Details Last Updated DateTime 175.26 cm 90 % 90 % 90 /min 24.4 kg/m2 94790.7 4 g 110/74 mm[Hg] MICHAEL PISANO, [facility] [address] [address], [place], [address] [facility] - [facility] 13:14:06 Social History Question Answer Notes LastModified by Organizat ion Details LastModified Time Tobacco Smoking Status Unknown If Ever Smoked Gill omer [place] - [facility] 05/06/2025 12:45:23 What Type Of Parole Hearing Officer Do You Use? None [email or web address] Information not available 05/06/2025 How Many Alcoholic Drinks Do You Consume Per Day On Average? 1 [email or web address] Information not available 05/06/2025 Do You Have Any Pets? No [email or web address] Information not available 05/06/2025 Are You Passively Exposed To Smoke? No [email or web address] Information not available 05/06/2025 Are There Any Smokers In Your House? No [email or web address] Information not available 05/06/2025 Sex: Unknown Functional Status Question Answer Note LastModified by Organization Details LastModified Time How many times per week do you consume alcohol? Less than 1 time per week [email or web address] Inform ation not available 05/06/2025 Do you use any illicit or recreational drugs? No [email or web address] Information not available 05/06/2025 Do you or have you ever used any other forms of tobacco or nicotine? No [email or web address] Information not available 05/06/2025 What is your level of alcohol consumption? Occasional [email or web address] Information not available 05/06/2025 What type of noise exposure are you exposed to? noExposureToExcessiveNoise [email or web address] Infor mation not available 05/06/2025 Mental Status None recorded. Family History Relationship Description Onset Age of this Age Resolved Age Notes LastModified by Organization Details LastModified Time Mother Hearing loss [email or web address] Not avai lable 05/06/2025 12:45:11 Mother Headache [email or web address] Not availabl e 05/06/2025 12:45:11 Medical History Condition Response Diabetes Y Allergies/Hayfever Y Heart Problems Y Tonsil Infections Y Nasal or Sinus Problems Y Anemia Y High Cholesterol Y GERD/Reflux Y Headaches Y Other Skin Condition Y Hypertension Y Gynecological HistoryNo gynecological history recorded. Obstetrics History GPAL:G 0 P 0 0 0 0 Past Encounters Encounter ID Performer Location Encounter Start Date Encounter Closed Date Diagnosis/Indication Diagnosis SNOMED-CT Code Diagnosis ICD10 Code Diagnosis IMO Codes Diagnosis Note [id number] JEANNIE BEST [facility] [address] [place] [address] 06/07/2025 12:49:11 06/07/2025 14:21:23 Perennial allergic rhinitis 150055495 J30.89 188340 Health Concerns Section Related Observation LastModified by Organization Detai ls LastModified Time None Recorded Concern Status LastModified by Organization Details LastModified Time None Recorded Payers Encounter Date Sequence Insurance Name Policy Number Policy Victor Covered Member ID Victor Member ID Guarantor Name 06/07/2025 1 [facility] [id number] Adina Lees [id number] Adina [facility] [facility] Episode No OBEpisode recorded.
--- OUTSIDE RECORDS SUMMARY | 2025-06-21 17:25 | XMS_ITS | Clinical Summary ---
Author Organization [facility] Address [facility] [place] [address] Care Team Providers Care Program Evaluation Consultant Name Role Phone Eliseo Jha MD Primary Care Provider [phone] Allergies No known active allergies Medications loratadine [...] Cancer screening 2021 Covid-19 Vaccine ( - 2024-2 6 season) 2025 Influenza (Flu) vaccine (1 o [...] LDL) (07/03/2021 3:16 PM EST) Pathologist [facility] Cholesterol, Total 231 mg/dL [facility] Comment: Lower Risk: <200 mg/dL Average Risk: 200-239 mg/dL Higher Risk: >lu=252 mg/dL Triglyceride 215 mg/dL [facility] Comment: Average Risk/Lower Risk: <150 mg/dL Borderline High Risk: 150-199 mg/dL High Risk: 200-499 mg/dL Very High Risk: >wt=549 mg/dL HDL Cholesterol 47 mg/dL [facility] Comment: Males: Higher Risk: <40 mg/dL Females: Higher Risk: <50 mg/dL LDL Cholesterol 141 mg/dL [facility] Comment: Lowest Risk: <100 mg/dL Lower Risk: 100-129 mg/dL Borderline High Risk: 130-159 mg/dL High Risk: 160-189 mg/dL Very High Risk: >tp=505 mg/dL Cholesterol/HDL Ratio 4.9 ratio [facility] Lipid Interpretation See Note [facility] Comment: Lipid management should be guided by a patient s ASCVD risk, goals and preferences. ACC/AHA Guidelines recommend high intensity statin if clinical ASCVD or LDL greater than or equal to 190 mg/dL. http://Proactaurl.com/FFR-CNL-Lupqdmonn Adults aged 40-75 with LDL 70-189 mg/dL should have their 10 year ASCVD risk estimated with the ACC/AHA ASCVD risk voip network engineer http://tools.acc.org/ARHVK-Txnz-Dfdpimmfw/ Statin should be discussed if risk greater [...] Nafisa Wilcox MD CHEMISTRY ORDERABLES Final Result [facility] [place] [address] * (ABNORMAL) Basic Metabolic Panel (non-fasting) (07/03/2021 3:16 PM EST) Glucose 118 65 - 199 mg/dL [facility] Comment:Diabetes: >=200 mg/d L plus symptoms Blood Urea Nitrogen 10 8 - 18 mg/dL [facility] Creatinine 0.66(L) 0.70 - 1.20 mg/dL [facility] Sodium 139 135 - 145 mmol/L [facility] Potassium 4.0 3.5 - 5.0 mmol/L [facility] Comment: Please note: Patients with WBC >100,000 may have falsely elevated Potassium levels. For accurate Potassium quantification in these patients send serum separator tube (gold top) for subsequent determinations. Contact the Clinical Chemistry Laboratory if there are any questions. Chloride 101 98 - 107 mmol/L [facility] Carbon Dioxide 27 22 - 31 mmol/L [facility] Anion Gap 11 5 - 15 mmol/L [facility] Calcium 9.6 8.5 - 10.5 mg/dL [facility] Est Glomerular Filtration Rate 110 >=60 mL/min/1. 73 m [facility] Comment: This patient s estimated [...] Nafisa Wilcox MD CHEMISTRY [place] [address] from Last 3 Months or Most Recently Relevant to Health Maintenance Insurance [facility] Care Teams Program Evaluation Consultant Relationship Specialty Start Date End Date Eliseo Jha MD [address] [place] [address] [place] [address] PCP - General 03/18/14
--- OUTSIDE RECORDS SUMMARY | 2025-06-21 17:25 | XMS_ITS | Data Portability ---
Author Organization [place] - [facility], Allergy Address [address] [place] [id number] Care Team Providers Care Assistant Project Engineer Name Role Phone MALIKA WILSON Referring [...] testi ng* No observ ation record ed. [email or web address] Not Available 2024 13:27:26 Result Notes None recorded. Problems Name Problem SNOMED Code Status Onset Date Resolution Date Notes Provider Name and Address Organization Details Recorded Time Obstructive sleep apnea syndrome 97391051 Active 2024 SIVAN Atkins MD [address] [facility], [address] [facility] [place], [place], [address], [facility] 13:14:57 Nasal congestion 76464728 Active 2024 SIVAN Atkins MD [address] [facility] [address] [facility], [place], [address], [facility] 13:15:00 Recurrent acute maxillary sinusitis Active 2024 SIVAN Atkins MD [address] [facility], [place], [address], [facility] 13:15:11 Dysfunction of left eustachian tube 7245481843005 106 Active 2024 SIVAN Atkins MD [address] [address], [place], [address], [facility] - [facility] 13:15:17 Allergic rhinitis caused by pollen 42701339 Active 2024 SIVAN Atkins MD [address] [address], [place], [address], [facility] 13:24:13 Allergic rhinitis 82645606 Active 2024 SIVAN Atkins MD [address] [facility] [place], [address], [address], [facility] - [facility] 13:24:23 Non-allergi c rhinitis 701732776051 Active 2024 SIVAN Atkins MD [address] [facility], [address] [facility] [place], [place], [address], [facility] 13:24:23 Seasonal allergic rhinitis 209291740 Active 2024 SIVAN Atkins MD [address] [facility], [address] [facility] [place], [place], [address], [facility] 13:24:23 Perennial allergic rhinitis 457796997 Active 2024 JEANNIE BEST [address] [address], [place], [address], [facility] 13:23:34 Perennial allergic rhinitis 254610910 Active 2024 JEANNIE BEST [address] [address], [place], [address], [facility] 13:28:44 Problem Notes None recorded. Procedures Surgical History Date Name Laterality Status Provider Name and Address Organization Details Recorded Time Allergy Testing-Full completed MATTHEW BEST[address], [address], [facility] 06/07/2025 14:21:09 FFL_RE completed SIVAN BLAIR MD [address] [place] [address], [phone], [facility] 05/06/2025 13:15:21 Imaging Results None recorded. Procedure Notes None recorded. Medical Equipment None Reported. Allergies Allergen ID Allergen Name Allergen Category Reaction Reaction Severity Criticality Documentation Date Start Date Code Code System Note Provider Name and Address Organization Details Recorded Time 021119 adhesive environme nt,medica tion Not available Not available Not available 05/06/2025 Gill omer [facility] 12:45:31 151395 Betadine medicatio n Not available Not available Not available 05/06/20252024 26931 0 RxNorm Gill omer [facility] 12:45:31 Medications Name Sig Start Date [...] Address Organization Details Last Updated DateTime 05/06/2025 05102.74 g 24.4 kg/m2 175.26 cm Gill Saucedo [place] - [facility] 05/06/2025 12:45:05 Date Recorded Body height Oxygen saturation Oxygen saturation in Arterial blood by Pulse oximetry Heart rate Body mass index (BMI) Body weight Systolic And Diastolic Provider Name and Address Organization Details Last Updated DateTime 175.26 cm 90 % 90 % 90 /min 24.4 kg/m2 46425.7 4 g 110/74 mm[Hg] MICHAEL PISANO, [address], [address] [facility] - [facility] 13:14:06 Social History Question Answer Notes LastModified by Organizat ion Details LastModified Time Tobacco Smoking Status Unknown If Ever Smoked Gill omer [place] [facility] 05/06/2025 12:45:23 What Type Of Benchroom Shop Optician Do You Use? None [email or web address] Information not available 05/06/2025 How Many Alcoholic Drinks Do You Consume Per Day On Average? 1 [email or web address] Information not available 05/06/2025 Do You Have Any Pets? No Information not available 05/06/2025 Are You Passively Exposed To Smoke? No Information not available 05/06/2025 Are There Any Smokers In Your House? No Information not available 05/06/2025 Sex: Unknown Functional Status Question Answer Note LastModified by Organization Details LastModified Time How many times per week do you consume alcohol? Less than 1 time per week Inform ation not available 05/06/2025 Do you use any illicit or recreational drugs? No [email or web address] Information not available 05/06/2025 Do you or have you ever used any other forms of tobacco or nicotine? No [email or web address] Information not available 05/06/2025 What is your level of alcohol consumption? Occasional [email or web address] Information not available 05/06/2025 What type of noise exposure are you exposed to? noExposureToExcessiveNoise [email or web address] Infor mation not available 05/06/2025 Mental Status None recorded. Family History Relationship Description Onset Age of this Age Resolved Age Notes LastModified by Organization Details LastModified Time Mother Hearing loss [email or web address] Not avai lable 05/06/2025 12:45:11 Mother Headache [email or web address] Not availabl e 05/06/2025 12:45:11 Medical History Condition Response Allergies/Hayfever Y Heart Problems Y Tonsil Infections Y Nasal or Sinus Problems Y Anemia Y Other Skin Condition Y Diabetes Y High Cholesterol Y GERD/Reflux Y Headaches Y Hypertension Y Gynecological HistoryNo gynecological history recorded. Obstetrics History GPAL:G 0 P 0 0 0 0 Past Encounters Encounter ID Performer Location Encounter Start Date Encounter Closed Date Diagnosis/Indication Diagnosis SNOMED-CT Code Diagnosis ICD10 Code Diagnosis IMO Codes Diagnosis Note [id number] SIVAN BLAIR MD [facility] [address] [address] 05/06/2025 12:15:31 05/06/2025 13:22:36 Obstructive sleep apnea syndrome 84276751 G47.33 606008 Her sleep study was in September 2023 and she believes she has lost significan t weight and her sleep has improved since then. She continues to lose weight and has not reached a steady state yet. I recommend deferring a repeat sleep study [facility]. Since she had borderline sleep apnea to begin with I suspect she will cure her sleep apnea with weight loss alone. I recommend deferring interventi on such as CPAP or dental appliance for the moment. We will consider a repeat sleep study after her follow-up. Nasal congestion 8718494 0 R09.81 36035 will obtain allergy testing to better assess Dysfunctio n of left eustachian tube 7608971809 442091 H69.92 16290242 No fluid on exam. Can consider an audiogram at follow-up. Allergic r hinitis caused by pollen 56853901 J30.1 [id number] Exam and history are consistent with allergic rhinitis. We will obtain allergy testing to clarify the extent of allergy with f/u to review. [id number] JEANNIE BEST [facility] [address] [place] [address] 06/07/2025 12:49:11 06/07/2025 14:21:23 Perennial allergic rhinitis 053691897 J30.89 560980 Health Concerns Section Related Observation LastModified by Organization Detai ls LastModified Time None Recorded Concern Status LastModified by Organization Details LastModified Time None Recorded Advance Directives Directive None Recorded Payers Insurance Date Sequence Insurance Name Policy Number Policy Victor Covered Member ID Victor Member ID Guarantor Name 06/04/2025 1 [facility] IN[facility] (PPO) [id number] Adina Lees [id number] Adina Lees Notes Date Note Type Note [...] has improved as well. SIVAN BLAIR MD [address] [place] [address], [place], [address], [facility] - [facility] 05/06/2025 13:51:35 OBGyn Episode No OBEpisode recorded.
== END 2025-06-21 15:58 | disposition home or self-care (01) ==
LOC: HO.HMCH 15:18
PROVIDERS: PCP Internal Medicine
DX: Z01.818 Encounter for other preprocedural examination (principal); Z13.9 Encounter for screening, unspecified

== ENCOUNTER 2025-06-28 09:34 | Outpatient (AMB) | payer OTHER, SELFPAY ==
--- NOTE | 2025-06-28 09:39 | MHC.OFFVIS ---
Vital Signs 06/28/25 09:40 Height 5 ft 9 in Weight 165 lb 5.547 oz BMI 24.4 BP 118/78 Blood Pressure Location Lt brachial Position Sitting Pulse 96 Intake Visit Reasons: PreOp- Skin Removal Surgery Intake Note: Pre-op skin removal surgery with ekg feeling good Outplacement Consultant Required: No Allergies chlorhexidine (From ChloraPrep Clear) Allergy (Mild, Verified 06/21/25 15:35) Rash isopropyl alcohol (From ChloraPrep Clear) Allergy (Mild, Verified 06/21/25 15:35) Rash adhesive Adverse Reaction (Intermediate, Verified 06/21/25 15:35) Rash Medication List - Last Reconciled 06/28/25 by Gene Funk MD biotin 1 mg PO DAILY PRN carvedilol 6.25 mg PO BID cetirizine (Zyrtec) 10 mg PO DAILY PRN fluticasone propionate 50 mcg/actuation 1 spray intranasal Q12H gabapentin 100 mg PO BEDTIME lactobacillus combination no.4 (Probiotic) 3,000 mmu cells PO DAILY losartan 25 mg PO DAILY 90 days multivitamin 1 tab PO DAILY pantoprazole 40 mg PO DAILY 90 days simvastatin 10 mg PO BEDTIME 30 days tirzepatide 15 mg (0.5 mL) subcut QWEEK 90 days HPI Comments Details: Adina comes for follow-up. She is scheduled to undergo plastic surgery for excess skin removal the her neck as well as around her belly under general anesthesia. These procedures are planned as separate procedures for her under general anesthesia. One is coming up in his near future. Patient says she is doing extremely well. She has no cardiac symptoms. She has more than 4 Mets of physical capacity. Goes for walks. Denies any orthopnea, PND, leg edema. Denies any shortness of breath or chest pain. Taking all her medications. Denies any prolonged palpitation irregular heartbeat. [facility] Medical History Paresthesias Hypersomnia Snoring History of GI bleed Nonischemic cardiomyopathy PCOS (polycystic ovarian syndrome) Congestive heart failure Obesity (BMI 30-39.9) Ocular migraine Hypertension Hypercholesterolemia GERD (gastroesophageal reflux disease) Surgical History No pertinent past surgical history Family History Mother No problems noted. 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 Current occupational exposures/hazards: No Sexual orientation: Straight/Heterosexual Gender identity: Female Cognitive needs: No Hearing needs: No Vision needs: No Female Reproductive History Menstrual Age of Menarche: 15 Review of Systems Const Denies chills, Denies fatigue, Denies fever(s), Denies frequent falls, Denies weakness, Denies weight gain and Denies weight loss ENT Denies dizziness Card Denies chest pain, Denies leg edema, Denies lightheadedness, Denies palpitations, Denies dyspnea, Denies dyspnea on exertion, Denies orthopnea and Denies other (loss of consciousness) Resp Denies cough, Denies dyspnea and Denies dyspnea on exertion GI Denies hematochezia and Denies change in stool character Musc Denies abnormal gait, Denies muscle weakness, Denies numbness, Denies radiating pain into limb and Denies tingling Neuro Denies Abnormal speech present, Denies abnormal gait, Denies dizziness, Denies frequent falls, Denies numbness, Denies tingling and Denies weakness Endo Denies fatigue and Denies palpitations Physical Exam Vital Signs: Last Vital Signs Pulse 96 06/28/25 09:40 BP 118/78 06/28/25 09:40 BMI result Body Mass Index 24.4 Const General: cooperative, comfortable, no acute distress, alert, awake, Physically active and well groomed Nutritional Appearance: average body habitus Orientation/consciousness: patient oriented x3 Limitations: no limitations HEENT Head: Yes normal to inspection and Yes normocephalic Neck Neck: Yes trachea midline, Yes supple and Yes no JVD Resp Effort & Inspection: normal respiratory effort Auscultation: clear to auscultation bilaterally Cardio Jugular venous distension: no JVD Rate: regular rate Rhythm: regular rhythm Heart sounds: S1 normal heart sound present, S2 normal heart sound present, no click, no gallops, no murmurs and no rubs GI Inspection: Yes obesity Auscultation: normal bowel sounds Skin General skin exam: no rashes or lesions noted Neuro General: patient oriented x3 and no focal motor deficits Speech: No Abnormal speech present Extrem General: Yes no clubbing, cyanosis or edema Psych Appearance: grossly normal Office Procedures EKG Details: EKGs shows normal sinus rhythm with normal EKG 63182-Oejjptvpelugsglen, Complete Assessment & Plan Assessment & Plan (1) Preoperative cardiovascular examination: Code(s): Z01.810 - Encounter for preprocedural cardiovascular examination Plan: Preoperative cardiovascular risk stratification in this young woman with normalized LV ejection fraction on current neurohormonal modulation. She has done extremely well and has currently no symptoms. She is to undergo noncardiac surgery under general anesthesia for excess skin removal. Patient is currently optimized from cardiac perspective with low risk for perioperative cardiovascular morbidity mortality. Continue all her neurohormonal modulators in the perioperative time. Watch blood pressure closely during the procedure and manage accordingly. (2) Nonischemic cardiomyopathy: Comment: January 2013 EF 61%, April 2018 EF 59% June 2020 echocardiogram ejection fraction 53% normal left ventricular activity October 2022. Normal LV systolic function with very mild asymmetric septal hypertrophy with grade 1 diastolic dysfunction 2. Normal cardiac valvular Doppler 3. No gross pericardial effusion Code(s): I42.8 - Other cardiomyopathies Category: Medical Plan: Nonischemic cardiomyopathy which has normalized with last echocardiogram done last August with no new symptoms on current neurohormonal modulation with carvedilol and losartan. Continue the same. She has no signs or symptoms of heart failure. She has done extremely well with weight loss. I have encouraged her to continue to take her neurohormonal modulation. Continue avoid cardiotoxic agent. I think overall weight loss has helped her significantly and advised her to maintain activity level as tolerated. Will follow up in the clinic in 1 year's time, sooner PRN. Thank you for allowing me to partake in her care Coding Level of Care Code Est Pt Level 4 (62167) Complex EM visit Add On G2211 Diagnoses Preoperative cardiovascular examination Z01.810 Nonischemic cardiomyopathy I42.8 CPT Codes EKG - CPT: 24406-Ytubjlrimxpdmxgmy, Complete ([id number])
[2025-06-28 09:40] VITALS: BP 118/78; PULSE 96; BMI 24.4
== END 2025-06-28 10:02 | disposition home or self-care (01) ==
LOC: HO.HCS 09:35
PROVIDERS: PCP Internal Medicine; Visit Provider Internal Medicine Cardiovascular Disease
DX: Z01.810 Encounter for preprocedural cardiovascular examination (principal); I42.8 Other cardiomyopathies
CPT/HCPCS: 93010; 99214

== ENCOUNTER → 2025-06-28 09:34 | Outpatient (BNVA) | payer OTHER, SELFPAY | PROVIDERS: PCP Internal Medicine; Visit Provider Internal Medicine Cardiovascular Disease | DX: Z01.810 Encounter for preprocedural cardiovascular examination (principal); I42.8 Other cardiomyopathies | CPT/HCPCS: 93005 ==